=== PATIENT | female | born 1940 | race Caucasian/White ===

== ENCOUNTER → 2016-05-12 | Outpatient (CLI) | payer OTHER ==
[~2016-05-12] MED LIST: ATOR10TA88 PO; LISI-461 PO; OXYC5TAB PO; PRD/1 PO
== END | disposition home or self-care (01) ==
LOC: C.LAB1850 14:08
PROVIDERS: ATTEND Internal Medicine Rheumatology
DX: M35.3 Polymyalgia rheumatica (principal); Z79.52 Long term (current) use of systemic steroids

== ENCOUNTER → 2016-06-04 | Outpatient (CLI) | payer OTHER ==
--- NOTE | 2016-06-04 12:45 | DIAGNOSTIC IMAGING REPORT ---
CHEST 2 VIEWS ROUTINE CLINICAL HISTORY: R53.83 FatigueR COMPARISON STUDY: 01/24/2016 FINDINGS: The cardiac and mediastinal contours are normal. There is no evidence of focal pulmonary consolidation. There is no evidence of failure. No pleural effusions are visualized.[ IMPRESSION: No active disease in the chest. Electronically signed by: Harrison Reis M.D. 06/04/2016 12:44 PM Dictated Date/Time: 06/04/2016 12:44 PM
[2016-06-04 14:39] LABS: BASO % 0.3 %; BASO ABS # 0.03 K/uL (0-0.2); COMPLETE YES; EOS % 2.1 %; IG% 0.3 %; LYMPH % 23.7 %; LYMPH ABS # 2.27 K/uL (1.2-3.4); MEAN CORPUSCULAR HGB CONC 34.5 g/dl (32-36); MEAN PLATELET VOLUME 11.8 fL (7.4-10.4); MONO % 8.6 %; PLATELET COUNT 233 K/uL (130-400); RED BLOOD COUNT 4.22 M/uL (4.2-5.4); WHITE BLOOD COUNT 9.59 K/uL (4.8-10.8)
[2016-06-04 15:02] LABS: ESTIMATED AVERAGE GLUCOSE 123 mg/dl; HA1C FLAG Normal (Normal)
[2016-06-04 16:57] LABS: ALT/SGPT 28 U/L (12-78); AST/SGOT 16 U/L (15-37); BLOOD UREA NITROGEN 31 mg/dl (7-18); BUN/CREATININE RATIO 25.5 (10-20); CALCIUM 9.2 mg/dl (8.5-10.1); CARBON DIOXIDE 27 mmol/L (21-32); CHLORIDE 105 mmol/L (98-107); GLUCOSE 107 mg/dl (70-99); POTASSIUM 4.4 mmol/L (3.5-5.1); SODIUM 139 mmol/L (136-145)
[2016-06-04 17:08] LABS: ALB/GLOB RATIO 1.2 (0.9-2); ALKALINE PHOSPHATASE 67 U/L (45-117); CHOLESTEROL 162 mg/dl (0-200); CHOLESTEROL/HDL RATIO 3.4; HDL CHOLESTEROL 48 mg/dl; LDL CHOLESTEROL CALCULATED 89 mg/dl; TRIGLYCERIDES 123 mg/dl (0-150); VERY LOW DENSITY LIPOPROT CALC 25 mg/dl
[2016-06-04 20:28] LABS: LYME DISEASE AB IGG NEG (NEG); LYME DISEASE AB IGM NEG (NEG)
--- NOTE | 2016-06-09 12:35 | CODING QUERY MEDICAL NECESSITY ---
SUPPORTING DIAGNOSIS NEEDED A supporting diagnosis is required for the test/procedure performed on this patient in order for us to be reimbursed by the patient's insurance. Please provide a supporting diagnosis for the following test/procedure listed below next to the test name along with your signature. *If there is no additional diagnosis for this patient that would support the following test/procedure please document that below next to the test/procedure. Test(s)/Procedure(s) that require a supporting diagnosis: * VITAMIN D-25 HYDROXY DIAGNOSIS: * GLYCATED HEMOGLOBIN DIAGNOSIS: * DOS: 06/04/16 Provider Signature: Date: Thank you Cheryl Shelton Health Information Management Once completed, please kindly fax back to [phone] For questions please call [phone]
== END | disposition home or self-care (01) ==
LOC: C.RADBC 12:12
PROVIDERS: ATTEND Physician Assistant
DX: R53.83 Other fatigue (principal); E55.9 Vitamin D deficiency, unspecified; Z79.52 Long term (current) use of systemic steroids

== ENCOUNTER → 2016-08-13 | Outpatient (CLI) | payer OTHER ==
[~2016-08-13] MED LIST changes: +ATOR10TA82 PO; -ATOR10TA88 PO
== END | disposition home or self-care (01) ==
LOC: C.LAB1850 11:34
PROVIDERS: ATTEND Internal Medicine Rheumatology
DX: M35.3 Polymyalgia rheumatica (principal); Z79.52 Long term (current) use of systemic steroids

== ENCOUNTER → 2016-08-15 | Outpatient (CLI) | payer OTHER ==
--- NOTE | 2016-08-15 15:45 | DIAGNOSTIC IMAGING REPORT ---
KUB CLINICAL HISTORY: Left flank pain. Nephrolithiasis. FINDINGS: 2 AP supine abdominal radiographs are compared to study dated 01/26/2016 and correlated with abdominal CT dated 01/25/2016. There is a nonobstructed abdominal bowel gas pattern noting mild colonic fecal retention. There is no radiographic evidence of nephrolithiasis. Numerous phleboliths are noted in the pelvis. The skeletal structures are osteopenic. Mild lumbosacral spondylosis and scoliosis is observed. IMPRESSION: There is no radiographic evidence of nephrolithiasis. Electronically signed by: Aric Galloway M.D. 08/15/2016 3:43 PM Dictated Date/Time: 08/15/2016 3:41 PM
== END | disposition home or self-care (01) ==
LOC: C.RAD 15:15
PROVIDERS: ATTEND Nurse Practitioner Family
DX: N20.0 Calculus of kidney (principal)

== ENCOUNTER → 2016-09-30 | Outpatient (CLI) | payer OTHER ==
[~2016-09-30] MED LIST changes: -ATOR10TA82 PO; +ATOR10TA88 PO
== END | disposition home or self-care (01) ==
LOC: C.LABPBG 11:46
PROVIDERS: ATTEND Internal Medicine Geriatric Medicine
DX: M35.3 Polymyalgia rheumatica (principal)

== ENCOUNTER → 2016-10-14 | Outpatient (CLI) | payer OTHER ==
[2016-10-14 18:20] LABS: BLOOD UREA NITROGEN 27 mg/dl (7-18)
== END | disposition home or self-care (01) ==
LOC: C.LABPBG 10:56
PROVIDERS: ATTEND Internal Medicine Geriatric Medicine
DX: D49.0 Neoplasm of unspecified behavior of digestive system (principal); I10 Essential (primary) hypertension

== ENCOUNTER → 2016-10-17 | Outpatient (CLI) | payer OTHER ==
[~2016-10-17] MED LIST changes: +GADAVIST IV PRN
--- NOTE | 2016-10-17 10:26 | DIAGNOSTIC IMAGING REPORT ---
MRI ABDOMEN COMBO CLINICAL HISTORY: IPMN - D49.0 PANCREATIC MASS TECHNIQUE: Imaging was performed prior to and following IV contrast injection. COMPARISON STUDY: 12/05/2015 FINDINGS: Imaging was performed in the axial and coronal planes, before and after the administration of 8.5 cc of intravenous Gadavist. There is a 4 cm right lobe hepatic cyst medially beneath the dome of the diaphragm. No splenic masses are visualized. There is a stable subdiaphragmatic cyst abutting the spleen measuring 13 cm. The gallbladder is surgically absent. There is no evidence of abdominal aortic dilatation. T2 bright left renal lesions are felt to represent cysts. There is no evidence of intra or extrahepatic biliary ductal dilatation. The pancreatic duct is irregular. There are several tiny cystic lesions which appear to communicate with the pancreatic duct. The largest is located within the pancreatic head measuring 8 mm. The findings are suggestive of side branch IPMNs. Os contrast images reveal no pathologic enhancement. IMPRESSION: 1. 4 cm right lobe hepatic cyst 2. Stable 13 mm left subdiaphragmatic cyst abutting the spleen 3. Stable left renal cysts 4. Somewhat beaded pancreatic duct. Several tiny cystic lesions which communicate with the main pancreatic duct are visualized. The largest is located within the pancreatic head measuring 8 mm. 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 10/17/2016 10:25 AM Dictated Date/Time: 10/17/2016 10:15 AM
== END | disposition home or self-care (01) ==
LOC: C.MRIBC 09:07
PROVIDERS: ATTEND Internal Medicine Geriatric Medicine
DX: D49.0 Neoplasm of unspecified behavior of digestive system (principal); K76.89 Other specified diseases of liver; K66.8 Other specified disorders of peritoneum; N28.1 Cyst of kidney, acquired

== ENCOUNTER → 2016-12-16 | Outpatient (CLI) | payer OTHER ==
[~2016-12-16] MED LIST changes: -GADAVIST IV PRN
[2016-12-16 17:32] LABS: BASO % 0.2 %; BASO ABS # 0.02 K/uL (0-0.2); COMPLETE YES; EOS % 0.2 %; IG% 0.5 %; LYMPH % 12.8 %; MEAN CELL VOLUME 92.2 fL (80-100); MEAN CORPUSCULAR HEMOGLOBIN 30.7 pg (25-34); MEAN CORPUSCULAR HGB CONC 33.3 g/dl (32-36); MONO % 5.8 %; NEUT % 80.5 %; PLATELET COUNT 285 K/uL (130-400); RED BLOOD COUNT 4.23 M/uL (4.2-5.4); WHITE BLOOD COUNT 10.17 K/uL (4.8-10.8)
[2016-12-16 17:42] LABS: ALT/SGPT 26 U/L (12-78); AST/SGOT 13 U/L (15-37); BLOOD UREA NITROGEN 25 mg/dl (7-18); BUN/CREATININE RATIO 20.6 (10-20); CALCIUM 9.2 mg/dl (8.5-10.1); CARBON DIOXIDE 26 mmol/L (21-32); CHLORIDE 102 mmol/L (98-107); GLUCOSE 133 mg/dl (70-99); POTASSIUM 4.1 mmol/L (3.5-5.1); SODIUM 135 mmol/L (136-145)
[2016-12-16 17:53] LABS: ALB/GLOB RATIO 0.9 (0.9-2); ALKALINE PHOSPHATASE 66 U/L (45-117); THYROID STIMULATING HORMONE 0.946 uIu/ml (0.300-4.500)
== END | disposition home or self-care (01) ==
LOC: C.LABPBG 13:41
PROVIDERS: ATTEND Internal Medicine Geriatric Medicine
DX: M35.3 Polymyalgia rheumatica (principal); R53.83 Other fatigue; R10.9 Unspecified abdominal pain; D49.0 Neoplasm of unspecified behavior of digestive system; I12.9 Hypertensive chronic kidney disease with stage 1 through stage 4 chronic kidney disease, or unspecified chronic kidney disease; E55.9 Vitamin D deficiency, unspecified; N18.9 Chronic kidney disease, unspecified

== ENCOUNTER → 2017-02-19 | Outpatient (CLI) | payer OTHER ==
[~2017-02-19] MED LIST changes: +ATOR10TA82 PO; -ATOR10TA88 PO
== END | disposition home or self-care (01) ==
LOC: C.LABPBG 11:06
PROVIDERS: ATTEND Internal Medicine Geriatric Medicine
DX: T14.8XXA Other injury of unspecified body region, initial encounter (principal); W57.XXXA Bitten or stung by nonvenomous insect and other nonvenomous arthropods, initial encounter

== ENCOUNTER → 2017-03-25 | Outpatient (CLI) | payer OTHER ==
--- NOTE | 2017-03-25 15:09 | MAMMOGRAPHY REPORT ---
BILATERAL DIGITAL SCREENING MAMMOGRAM TOMOSYNTHESIS WITH CAD: 03/25/2017 CLINICAL HISTORY: Routine screening. Patient has no complaints. TECHNIQUE: Breast tomosynthesis in addition to standard 2D mammography was performed. Current study was also evaluated with a Computer Aided Detection (CAD) system. COMPARISON: Comparison is made to exams dated: 01/30/2016 mammogram, 01/23/2015 mammogram, 4 mammogram, 01/19/2013 mammogram, 01/14/2012 mammogram, and 01/13/2011 mammogram - [facility]. BREAST COMPOSITION: There are scattered areas of fibroglandular density in both breasts. FINDINGS: There are stable focal asymmetries in each upper outer breast. Mild vascular calcification . No ne wsuspicious mass, architectural distortion or cluster of microcalcifications is seen. IMPRESSION: ACR BI-RADS CATEGORY 1: NEGATIVE There is no mammographic evidence of malignancy. A 1 year screening mammogram is recommended. The pa tient will receive written notification of the results. Approximately 10% of breast cancers are not detected with mammography. A negative mammographic report should not delay biopsy if a clinically suggestive mass is present. Mirta Castellanos M.D. ay/:03/25/2017 13:32:54 [employer] Cast Patternmaker: Marylou DIAZ(R)(M), [facility] letter sent: Normal 1/2 BI-RADS Code: ACR BI-RADS Category 1: Negative
== END | disposition home or self-care (01) ==
LOC: C.MAMM 13:13
PROVIDERS: ATTEND Internal Medicine Geriatric Medicine
DX: Z12.31 Encounter for screening mammogram for malignant neoplasm of breast (principal)

== ENCOUNTER → 2017-06-27 | Outpatient (CLI) | payer OTHER | LOC: C.LABSPEC 09:38 | PROVIDERS: ATTEND Internal Medicine | DX: R39.9 Unspecified symptoms and signs involving the genitourinary system (principal) ==

== ENCOUNTER → 2017-07-06 | Outpatient (CLI) | payer OTHER ==
--- NOTE | 2017-07-06 11:27 | DIAGNOSTIC IMAGING REPORT ---
KUB CLINICAL HISTORY: Nephrolithiasis. Left-sided abdominal pain. COMPARISON STUDY: CT of the abdomen and pelvis January 25, 2016 and KUB August 15, 2016. FINDINGS: Pelvic calcifications likely reflect phleboliths. No urinary calculi are identified. There is no evidence for a bowel obstruction. IMPRESSION: No urinary calculi identified. Electronically signed by: Primitivo Eubanks M.D. 07/06/2017 11:26 AM Dictated Date/Time: 07/06/2017 11:23 AM
[2017-07-06 13:03] LABS: BASO % 0.3 %; BASO ABS # 0.03 K/uL (0-0.2); EOS % 1.5 %; EOS ABS # 0.14 K/uL (0-0.5); HEMATOCRIT 37.5 % (37-47); HEMOGLOBIN 13.1 g/dL (12.0-16.0); IG# 0.02 K/uL (0.00-0.02); LYMPH % 23.3 %; LYMPH ABS # 2.25 K/uL (1.2-3.4); MEAN CELL VOLUME 90.6 fL (80-100); MEAN CORPUSCULAR HEMOGLOBIN 31.6 pg (25-34); MEAN CORPUSCULAR HGB CONC 34.9 g/dl (32-36); MEAN PLATELET VOLUME 11.1 fL (7.4-10.4); MONO % 8.2 %; MONO ABS # 0.79 K/uL (0.11-0.59); NEUT % 66.5 %; NEUT ABS # 6.42 K/uL (1.4-6.5); PLATELET COUNT 201 K/uL (130-400); RED CELL DISTRIBUTION WIDTH SD 42.9 fL (36.4-46.3); WHITE BLOOD COUNT 9.65 K/uL (4.8-10.8)
[2017-07-06 14:11] LABS: ALBUMIN 3.8 gm/dl (3.4-5.0); ALT/SGPT 29 U/L (12-78); AST/SGOT 20 U/L (15-37); BLOOD UREA NITROGEN 24 mg/dl (7-18); CALCIUM 9.4 mg/dl (8.5-10.1); CARBON DIOXIDE 26 mmol/L (21-32); CREATININE 1.22 mg/dl (0.60-1.20); GLUCOSE 96 mg/dl (70-99); POTASSIUM 4.6 mmol/L (3.5-5.1); SODIUM 135 mmol/L (136-145)
[2017-07-06 14:13] LABS: ALKALINE PHOSPHATASE 59 U/L (45-117); CHOLESTEROL 137 mg/dl (0-200); LDL CHOLESTEROL CALCULATED 56 mg/dl; TOTAL PROTEIN 7.4 gm/dl (6.4-8.2)
== END | disposition home or self-care (01) ==
LOC: C.RADBC 11:03
PROVIDERS: ATTEND Urology
DX: N20.0 Calculus of kidney (principal); M35.3 Polymyalgia rheumatica; I10 Essential (primary) hypertension; D49.0 Neoplasm of unspecified behavior of digestive system; E78.5 Hyperlipidemia, unspecified; Z79.52 Long term (current) use of systemic steroids; N18.9 Chronic kidney disease, unspecified

== ENCOUNTER → 2017-07-13 | Outpatient (CLI) | payer OTHER ==
--- NOTE | 2017-07-13 16:02 | DIAGNOSTIC IMAGING REPORT ---
L KNEE 1 OR 2 VIEWS ROUTINE, R KNEE 1 OR 2 VIEWS ROUTINE HISTORY: 77 years-old Female M25.569 acute bilateral knee pain COMPARISON: None available TECHNIQUE: 2 views of the bilateral knees FINDINGS: RIGHT: Chondrocalcinosis with moderate medial and mild lateral and patellofemoral compartment osteoarthritis. There is no acute fracture or dislocation. Small joint effusion. Indeterminate linear ossifications posterior to the femoral condyle measure up to 4.0 cm in length, likely within the proximal myotendinous fibers of the gastrocnemius. Peripheral arterial calcifications noted. LEFT: Dystrophic calcifications at the origin of the gastrocnemius also noted on the left. Chondrocalcinosis with moderate medial compartment, mild to moderate patellofemoral and mild bilateral compartment osteoarthritis. There is no acute fracture or dislocation. Small joint effusion with peripheral arterial disease. IMPRESSION: 1. Small bilateral joint effusions without acute fracture or dislocation. 2. 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 3. Peripheral arterial disease. The above report was generated using voice recognition software. It may contain grammatical, syntax or spelling errors. Electronically signed by: Aditya Gilman M.D. 07/13/2017 4:01 PM Dictated Date/Time: 07/13/2017 3:58 PM
== END | disposition home or self-care (01) ==
LOC: C.RADBC 15:38
PROVIDERS: ATTEND Physician Assistant Medical
DX: M25.569 Pain in unspecified knee (principal); M25.461 Effusion, right knee; M25.462 Effusion, left knee; M11.161 Familial chondrocalcinosis, right knee; M11.162 Familial chondrocalcinosis, left knee; M17.0 Bilateral primary osteoarthritis of knee; I73.9 Peripheral vascular disease, unspecified

== ENCOUNTER 2017-07-20 01:52 | Emergency (ER) | payer OTHER ==
[~2017-07-20] VITALS: Ht 160 cm; Wt 88.4 kg
[2017-07-20 01:56] VITALS: TEMP 36.4; Ht 160 cm; Wt 88.4 kg
[2017-07-20 02:57] LABS: BASO % 0.4 %; BASO ABS # 0.03 K/uL (0-0.2); EOS % 3.6 %; EOS ABS # 0.26 K/uL (0-0.5); HEMATOCRIT 36.6 % (37-47); HEMOGLOBIN 12.6 g/dL (12.0-16.0); IG# 0.01 K/uL (0.00-0.02); LYMPH % 35.1 %; LYMPH ABS # 2.51 K/uL (1.2-3.4); MEAN CELL VOLUME 90.6 fL (80-100); MEAN CORPUSCULAR HEMOGLOBIN 31.2 pg (25-34); MEAN CORPUSCULAR HGB CONC 34.4 g/dl (32-36); MEAN PLATELET VOLUME 10.7 fL (7.4-10.4); MONO % 8.5 %; MONO ABS # 0.61 K/uL (0.11-0.59); NEUT % 52.3 %; NEUT ABS # 3.74 K/uL (1.4-6.5); PLATELET COUNT 205 K/uL (130-400); RED CELL DISTRIBUTION WIDTH CV 13.1 % (11.5-14.5); RED CELL DISTRIBUTION WIDTH SD 43.2 fL (36.4-46.3); WHITE BLOOD COUNT 7.16 K/uL (4.8-10.8)
[2017-07-20] MEDS ORDERED: ERGO1TAB12 PO (03:13)
[2017-07-20] MEDS ORDERED: HYDR-5688 PO (03:14)
[2017-07-20] MEDS ORDERED: HYDR200T5 PO (03:15)
[2017-07-20] MEDS ORDERED: PANT40TA PO (03:15)
[2017-07-20 03:25] LABS: ALBUMIN 3.6 gm/dl (3.4-5.0); ALT/SGPT 29 U/L (12-78); BLOOD UREA NITROGEN 15 mg/dl (7-18); CALCIUM 8.7 mg/dl (8.5-10.1); CARBON DIOXIDE 26 mmol/L (21-32); CREATININE 1.27 mg/dl (0.60-1.20); GLUCOSE 111 mg/dl (70-99); SODIUM 136 mmol/L (136-145)
[2017-07-20 03:33] LABS: ALKALINE PHOSPHATASE 57 U/L (45-117)
--- NOTE | 2017-07-20 03:49 | EMERGENCY ROOM VISIT NOTE ---
ED Visit Note First contact with patient: 02:00 I saw this patient in conjunction with Crystal Quijano PA-C. I agree with her decision making and treatment plan.
--- NOTE | 2017-07-20 04:06 | EMERGENCY ROOM VISIT NOTE ---
History First contact with patient: 02:00 Chief Complaint: DIZZY Stated Complaint: DIZZY, UPSET STOMACH Nursing Triage Summary: see triage note History of Present Illness The patient is a 77 year old female who presents to the Emergency Room with complaints of dizziness. The patient reports that her symptoms started yesterday morning, approximately 24 hours ago. She states that she woke up from sleep and got up to go to the bathroom when she felt very dizzy. She laid down and her symptoms improved. Throughout the day, she had intermittent dizziness but nothing significant. She states that she again woke up to go to the bathroom tonight and felt very dizzy. She describes this as a feeling like the room was spinning. She felt like her heart was fluttering when she lies down. She feels slightly shaky at this time but states that the dizziness has resolved. She has been slightly nauseous with the dizziness but has not vomited. She denies any history of similar symptoms. She was recently treated for UTI, but had repeat urinalysis afterward which was clear. She has a history of arthritis and polymyalgia rheumatica but is otherwise healthy. She denies any headache, neck pain, chest pain, shortness of breath, fevers or recent illness. She denies numbness, weakness, blurred vision, slurred speech or confusion. She does note that her lisinopril dosage was recently increased. Review of Systems A complete 10 point review of systems was reviewed with the patient with pertinent positives and negatives as per history of present illness. All else were negative. Past Medical/Surgical History Medical Problems: (1) Abdominal abscess (2) Anxiety (3) Colonic diverticular abscess (4) Colonic polyp (5) Elevated troponin (6) Hyperlipemia (7) Kidney stone (8) PMR (polymyalgia rheumatica) Surgical Problems: (1) History of appendectomy (2) History of cholecystectomy Family History Diabetes mellitus FHx: gallbladder disease Hypertension Kidney stones Social History Smoking Status: Never Smoker Alcohol Use: occasionally Marital Status: Housing Status: lives with significant other Occupation Status: retired Current/Historical Medications Scheduled Atorvastatin (Lipitor), 10 MG PO DAILY Ergocalciferol (Vitamin D2), 2,000 PO DAILY Hydroxychloroquine Sulfate (Plaquenil), 400 MG PO DAILY Lisinopril (Lisinopril), 20 MG PO DAILY Pantoprazole (Protonix), 40 MG PO DAILY Prednisone (Prednisone), 1 MG PO DAILY Scheduled PRN Hydrocodone/Acetaminophen 5MG/325MG (Furman 5MG/325MG), 1 TABLET PO Q6 PRN for Pain Physical Exam Vital Signs Date Time Temp Pulse Resp B/P (MAP) Pulse Ox O2 Delivery O2 Flow Rate FiO2 07/20/17 04:22 64 18 150/88 98 07/20/17 02:46 76 18 150/64 98 82 155/103 80 160/88 07/20/17 02:30 73 07/20/17 01:56 36.4 93 20 142/87 94 Room Air Physical Exam VITALS: Vitals are noted on the nurse's note and reviewed by myself. Vital signs stable. GENERAL: This is a 77-year-old female, in no acute distress, nondiaphoretic, well-developed well-nourished. SKIN: The skin was without rashes. HEAD: Normocephalic atraumatic. EARS: External auditory canals clear, tympanic membranes pearly hills without erythema or effusion bilaterally. EYES: Pupils equal round and reactive to light and accommodation. Extraocular movements intact. No nystagmus. MOUTH: Mucous membranes moist. Tonsils are not enlarged. Pharynx without erythema or exudate. NECK: Supple without nuchal rigidity. No lymphadenopathy. HEART: Regular rate and rhythm without murmurs gallops or rubs. LUNGS: Clear to auscultation bilaterally without wheezes, rales or rhonchi. MUSCULOSKELETAL: Strength 5/5 throughout. NEURO: Patient was alert and oriented to person place and time. Normal finger to nose testing. Normal rapid alternating movements. No focal neurological deficits. Medical Decision & Procedures ER Provider Diagnostic Interpretation: CT HEAD: Trace fluid in the right sphenoid sinus No acute hemorrhage or infarction Radiologist: Nj Coates MD Laboratory Results 07/20/17 02:36 Red Blood Count 4.04, Mean Corpuscular Volume 90.6, Mean Corpuscular Hemoglobin 31.2, Mean Corpuscular Hemoglobin Concent 34.4, Mean Platelet Volume 10.7, Neutrophils (%) (Auto) 52.3, Lymphocytes (%) (Auto) 35.1, Monocytes (%) (Auto) 8.5, Eosinophils (%) (Auto) 3.6, Basophils (%) (Auto) 0.4, Neutrophils # (Auto) 3.74, Lymphocytes # (Auto) 2.51, Monocytes # (Auto) 0.61, Eosinophils # (Auto) 0.26, Basophils # (Auto) 0.03 07/20/17 02:36 Test 07/20/17 02:36 White Blood Count 7.16 K/uL (4.8-10.8) Red Blood Count 4.04 M/uL (4.2-5.4) Hemoglobin 12.6 g/dL (12.0-16.0) Hematocrit 36.6 % (37-47) Mean Corpuscular Volume 90.6 fL (80-100) Mean Corpuscular Hemoglobin 31.2 pg (25-34) Mean Corpuscular Hemoglobin Concent 34.4 g/dl (32-36) Platelet Count 205 K/uL (130-400) Mean Platelet Volume 10.7 fL (7.4-10.4) Neutrophils (%) (Auto) 52.3 % Lymphocytes (%) (Auto) 35.1 % Monocytes (%) (Auto) 8.5 % Eosinophils (%) (Auto) 3.6 % Basophils (%) (Auto) 0.4 % Neutrophils # (Auto) 3.74 K/uL (1.4-6.5) Lymphocytes # (Auto) 2.51 K/uL (1.2-3.4) Monocytes # (Auto) 0.61 K/uL (0.11-0.59) Eosinophils # (Auto) 0.26 K/uL (0-0.5) Basophils # (Auto) 0.03 K/uL (0-0.2) RDW Standard Deviation 43.2 fL (36.4-46.3) RDW Coefficient of Variation 13.1 % (11.5-14.5) Immature Granulocyte % (Auto) 0.1 % Immature Granulocyte # (Auto) 0.01 K/uL (0.00-0.02) Anion Gap 8.0 mmol/L (3-11) Est Creatinine Clear Calc Drug Dose 39.7 ml/min Estimated GFR () 47.5 Estimated GFR (Non- 41.0 BUN/Creatinine Ratio 12.0 (10-20) Calcium Level 8.7 mg/dl (8.5-10.1) Total Bilirubin 0.4 mg/dl (0.2-1) Aspartate Amino Transf (AST/SGOT) U/L (15-37) Alanine Aminotransferase (ALT/SGPT) 29 U/L (12-78) Alkaline Phosphatase 57 U/L (45-117) Troponin I < 0.015 ng/ml (0-0.045) Total Protein 7.0 gm/dl (6.4-8.2) Albumin 3.6 gm/dl (3.4-5.0) Globulin 3.4 gm/dl (2.5-4.0) Albumin/Globulin Ratio 1.1 (0.9-2) Thyroid Stimulating Hormone (TSH) 2.650 uIu/ml (0.300-4.500) ED Course The patient was evaluated as above. Labs were drawn and IV access was obtained. CT of the head was performed and read by radiology as above. Patient was reevaluated and reports she is still feeling well and has no dizziness. Discharge instructions were reviewed with the patient. The patient verbalized understanding of my assessment and treatment plan and was discharged home in good condition. Medical Decision Differential diagnosis includes BPPV, Mnire's disease, labyrinthitis, cerebellar infarct, malignancy/mass, meningitis, encephalitis, among others. The patient is a 77-year-old female who presents today complaining of dizziness. Labs revealed no leukocytosis, anemia or concerning electrolyte abnormalities. Troponin was not elevated. EKG was performed and appears similar to previous. Patient has an old lateral infarct but no acute findings. She remained in a normal sinus rhythm on the monitor throughout her stay. CT of the head was performed and showed no acute intracranial findings. Fortunately, the patient's dizziness had resolved when she presented here. I did observe the patient walking around the room and she was able to do this with no difficulties. She has no neurological findings on exam. Her has a history of vertigo and does have meclizine at home and the patient was advised that she can try this medication if her symptoms return. If she has persistent dizziness or any other concerning symptoms, she was advised to return here immediately, otherwise she will follow-up with her PCP within 2 days. The patient was independently evaluated by Dr. Huitron, ED attending physician, who agreed with my assessment and treatment plan. Based on the patient's presentation and work up, I feel the patient is stable for outpatient treatment. The patient was educated to return to the emergency department for any worsening of their current condition or new/concerning symptoms. She will follow up with her PCP. Medication Reconcilliation Current Medication List: was personally reviewed by me Blood Pressure Screening Patient's blood pressure: Elevated blood pressure Blood pressure disposition: Referred to PCP Impression Primary Impression: Dizziness Departure Information Dispostion Home / Self-Care Condition GOOD Referrals Marco A Bursn M.D. (PCP) Patient Instructions My [facility] Additional Instructions Contact your primary care provider in the morning to schedule follow-up within 1 -2 days. As discussed, you may try the meclizine to see if this helps with her symptoms. Make sure to stay well-hydrated. Return to the emergency department if he developed persistent dizziness, vomiting, severe headache or any other new/concerning symptoms.
[2017-07-20 04:22] VITALS: BP 150/88; PULSE 64; O2SAT 98
--- NOTE | 2017-07-20 06:32 | DIAGNOSTIC IMAGING REPORT ---
CT HEAD WITHOUT CONTRAST (CT) CLINICAL HISTORY: dizziness COMPARISON STUDY: No previous studies for comparison. TECHNIQUE: Axial CT of the brain is performed from the vertex to the skull base. IV contrast was not administered for this examination. A dose lowering technique was utilized adhering to the principles of ALARA. CT DOSE: 537.48 mGy.cm FINDINGS: No intra or extra-axial mass lesions are visualized. There is no CT evidence of acute cortical infarction. There is no evidence of midline shift. There is no acute hemorrhage. No calvarial fractures are visualized. There are minor patchy white matter hypodensities likely on a small vessel basis. There is no evidence of pathologic ventricular dilatation. There is trace fluid in the sphenoid sinus. IMPRESSION: Trace fluid within the sphenoid sinus. Otherwise no acute intracranial findings. Electronically signed by: Harrison Reis M.D. 07/20/2017 6:31 AM Dictated Date/Time: 07/20/2017 6:30 AM
[2017-07-21] MEDS ORDERED: AMOX875T PO (14:44)
[2017-07-21] MEDS ORDERED: ONDA4TAB10 SL (14:45)
[2017-07-21] MEDS ORDERED: ANT25 PO (14:47)
== END 2017-07-20 04:23 | disposition home or self-care (01) ==
LOC: C.EDB 01:53
DX: R42 Dizziness and giddiness (principal); F41.9 Anxiety disorder, unspecified; E78.5 Hyperlipidemia, unspecified; Z79.52 Long term (current) use of systemic steroids; Z79.899 Other long term (current) drug therapy

== ENCOUNTER 2017-07-21 10:07 | Emergency (ER) | payer OTHER ==
[~2017-07-21] VITALS: Ht 160 cm; Wt 87.2 kg
[~2017-07-21 10:07] MED LIST changes: +ERGO1TAB12 PO; +HYDR-5688 PO; +HYDR200T5 PO; -OXYC5TAB PO; +PANT40TA PO
[2017-07-21 10:19] VITALS: TEMP 36.6; Ht 160 cm; Wt 87.2 kg
[2017-07-21] MEDS ORDERED: DiphenhydrAMINE HCL 50 MG/ML VIAL IV STA (11:02)
[2017-07-21] MEDS ORDERED: PROMETHAZINE HCL INJ 12.5 MG in SODIUM CHLORIDE 0.9% 50ML 50 ML IV STA (11:02)
[2017-07-21] MEDS ORDERED: SODIUM CHLORIDE 0.9% 500ML 500 ML IV STA (11:02)
[2017-07-21] MEDS ORDERED: SODIUM CHLORIDE 0.9% 1000ML 1,000 ML IV STA (11:02)
[2017-07-21] MEDS ORDERED: HYDROmorphone INJ 0.5 MG/0.5 ML SYR IV STA (11:02)
[2017-07-21] MEDS ORDERED: GADAVIST IV PRN (12:30)
[2017-07-21 12:40] LABS: BASO % 0.2 %; BASO ABS # 0.02 K/uL (0-0.2); EOS % 0.7 %; EOS ABS # 0.06 K/uL (0-0.5); HEMOGLOBIN 12.8 g/dL (12.0-16.0); IG# 0.02 K/uL (0.00-0.02); LYMPH % 14.4 %; LYMPH ABS # 1.16 K/uL (1.2-3.4); MEAN CELL VOLUME 88.5 fL (80-100); MEAN CORPUSCULAR HEMOGLOBIN 31.4 pg (25-34); MEAN CORPUSCULAR HGB CONC 35.6 g/dl (32-36); MEAN PLATELET VOLUME 11.1 fL (7.4-10.4); MONO % 8.6 %; MONO ABS # 0.69 K/uL (0.11-0.59); NEUT % 75.9 %; NEUT ABS # 6.09 K/uL (1.4-6.5); PLATELET COUNT 197 K/uL (130-400); RED CELL DISTRIBUTION WIDTH CV 12.6 % (11.5-14.5); RED CELL DISTRIBUTION WIDTH SD 40.6 fL (36.4-46.3); WHITE BLOOD COUNT 8.04 K/uL (4.8-10.8)
--- NOTE | 2017-07-21 12:45 | DIAGNOSTIC IMAGING REPORT ---
MRI OF THE BRAIN WITHOUT AND WITH IV CONTRAST CLINICAL HISTORY: Headache, vomiting, negative head CT. COMPARISON STUDY: Noncontrast head CT dated 07/20/2017 TECHNIQUE: MRI of the brain was performed from the vertex to the skull base utilizing various T1 and T2 weighted sequences. Following the IV administration of 8.5 mL of Gadavist contrast, additional enhanced images were obtained. FINDINGS: Sagittal T1, axial diffusion, proton density and T2 weighted axial, coronal FLAIR, and pre and post axial T1-weighted images were acquired. These were supplemented with post gadolinium coronal T1 weighted images. No intra or extra-axial mass lesions are visualized. Axial diffusion-weighted images reveal no evidence of acute or subacute infarction. There is no evidence of ventricular dilatation. Proton density T2-weighted and FLAIR images reveal a few scattered foci of increased T2 signal within the white matter, likely on a small vessel basis, and not unexpected for age. There are no abnormal flow voids. There is no evidence of pathologic enhancement. There are foci of increased T2 signal within the left mastoid, likely inflammatory. IMPRESSION: 1. No acute intracranial findings 2. Suspected mild inflammatory changes within the left mastoid 3. No evidence of acute or subacute infarction 4. No evidence of intracranial mass Electronically signed by: Harrison Reis M.D. 07/21/2017 12:43 PM Dictated Date/Time: 07/21/2017 12:41 PM
[2017-07-21 13:03] LABS: ALBUMIN 3.7 gm/dl (3.4-5.0); ALT/SGPT 32 U/L (12-78); AST/SGOT 25 U/L (15-37); BLOOD UREA NITROGEN 14 mg/dl (7-18); CARBON DIOXIDE 26 mmol/L (21-32); GLUCOSE 100 mg/dl (70-99); POTASSIUM 3.9 mmol/L (3.5-5.1); SODIUM 134 mmol/L (136-145)
[2017-07-21 13:14] LABS: ALKALINE PHOSPHATASE 62 U/L (45-117); TOTAL PROTEIN 7.1 gm/dl (6.4-8.2)
[2017-07-21] MEDS ORDERED: AMOX875T PO (14:44)
[2017-07-21] MEDS ORDERED: ONDA4TAB10 SL (14:45)
[2017-07-21] MEDS ORDERED: ANT25 PO (14:47)
--- NOTE | 2017-07-21 14:54 | EMERGENCY ROOM VISIT NOTE ---
History Report prepared by Charu: Richard Pelaez Under the Supervision of: Dr. Ashley Box M.D. First contact with patient: 10:55 Chief Complaint: DIZZY Stated Complaint: DIZZINESS,VOMITING,HEADACHE History of Present Illness The patient is a 77 year old female who presents to the Emergency Room with complaints of constant generalized headache beginning last night. She states the worst of her pain is located in her forehead, and base of the back of her head. She rates her pain as a 5/10 in severity. The patient was seen in the ED yesterday for dizziness. She had a negative work-up (including head CT). She was discharged home without any prescriptions. The patient states that she developed her headache following this. She vomited last night as well. She states that her dizziness has persisted, but is improved. The patient denies urinary symptoms, diarrhea, cough, or fevers. She notes that she was diagnosed with a UTI about two weeks ago. She was started on Macrobid, but was later switched to Ceftin. Per , the patient has not been confused, or disoriented at all recently. The patient states that she noticed her dizziness with turning over in bed. Source of History: patient, spouse/significant other () Onset: Last night Position: head (generalized) Symptom Intensity: 5/10 Timing: constant Associated Symptoms: + vomiting, No fevers, No cough, No diarrhea, No urinary symptoms Note: Positive: dizziness. Negative: confusion. Review of Systems See HPI for pertinent positives & negatives. A total of 10 systems reviewed and were otherwise negative. Past Medical & Surgical Medical Problems: (1) Abdominal abscess (2) Anxiety (3) Colonic diverticular abscess (4) Colonic polyp (5) Elevated troponin (6) Hyperlipemia (7) Kidney stone (8) PMR (polymyalgia rheumatica) Surgical Problems: (1) History of appendectomy (2) History of cholecystectomy Family History Diabetes mellitus FHx: gallbladder disease Hypertension Kidney stones Social History Smoking Status: Never Smoker Alcohol Use: occasionally Marital Status: Housing Status: lives with significant other Occupation Status: retired Current/Historical Medications Scheduled Amoxicillin & Pot Clavulanate (Augmentin 875-125 mg), 875 MG PO BID Atorvastatin (Lipitor), 10 MG PO DAILY Ergocalciferol (Vitamin D2), 2,000 PO DAILY Hydroxychloroquine Sulfate (Plaquenil), 400 MG PO DAILY Lisinopril (Lisinopril), 20 MG PO DAILY Ondasetron Odt (Zofran Odt), 4 MG SL Q6H Pantoprazole (Protonix), 40 MG PO DAILY Prednisone (Prednisone), 1 MG PO DAILY Scheduled PRN Hydrocodone/Acetaminophen 5MG/325MG ([place] 5MG/325MG), 1 TABLET PO Q6 PRN for Pain Meclizine HCl (Meclizine HCl), 1 TAB PO Q8 PRN for vertigo Allergies Coded Allergies: Metronidazole (Verified Allergy, Intermediate, rash, 07/21/17) Ciprofloxacin (Verified Allergy, Unknown, rash, 07/21/17) Metoclopramide (Verified Allergy, Unknown, seizure-like activity, 07/21/17) Prochlorperazine (Verified Allergy, Unknown, ., 07/21/17) Indomethacin (Unverified Adverse Reaction, Intermediate, nausea, 07/21/17) Physical Exam Vital Signs Date Time Temp Pulse Resp B/P (MAP) Pulse Ox O2 Delivery O2 Flow Rate FiO2 07/21/17 15:13 67 16 136/67 95 07/21/17 13:53 76 07/21/17 13:01 74 12 143/82 95 Room Air 07/21/17 11:50 78 14 164/90 98 Room Air 79 170/104 86 163/88 07/21/17 11:03 77 07/21/17 10:51 74 16 147/87 96 Room Air 07/21/17 10:19 36.6 86 20 142/84 97 Room Air Physical Exam Vital signs reviewed. General: Elderly, well-appearing female, in no significant distress. HEENT: No scleral icterus, PERRLA, neck supple. Atraumatic. No nystagmus. Cardiovascular: Regular rate and rhythm, no extra sounds. Pulmonary: Clear to auscultation bilaterally, normal work of breathing. Abdomen: Soft, nontender, nondistended, positive bowel sounds. Musculoskeletal: Atraumatic, no peripheral edema. Neurologic: Patient awake alert and oriented x 3, full strength in all 4 extremities. Cranial nerves 2 through 12 grossly intact. No horizontal nystagmus appreciated. Skin: Warm, dry, no rash f Medical Decision & Procedures ER Provider Diagnostic Interpretation: Radiology results as stated below per my review and radiologist interpretation: MRI OF THE BRAIN WITHOUT AND WITH IV CONTRAST FINDINGS: Sagittal T1, axial diffusion, proton density and T2 weighted axial, coronal FLAIR, and pre and post axial T1-weighted images were acquired. These were supplemented with post gadolinium coronal T1 weighted images. No intra or extra-axial mass lesions are visualized. Axial diffusion-weighted images reveal no evidence of acute or subacute infarction. There is no evidence of ventricular dilatation. Proton density T2-weighted and FLAIR images reveal a few scattered foci of increased T2 signal within the white matter, likely on a small vessel basis, and not unexpected for age. There are no abnormal flow voids. There is no evidence of pathologic enhancement. There are foci of increased T2 signal within the left mastoid, likely inflammatory. IMPRESSION: 1. No acute intracranial findings 2. Suspected mild inflammatory changes within the left mastoid 3. No evidence of acute or subacute infarction 4. No evidence of intracranial mass Electronically signed by: Harrison Reis M.D. 07/21/2017 12:43 PM Laboratory Results 07/21/17 11:40 Red Blood Count 4.07, Mean Corpuscular Volume 88.5, Mean Corpuscular Hemoglobin 31.4, Mean Corpuscular Hemoglobin Concent 35.6, Mean Platelet Volume 11.1, Neutrophils (%) (Auto) 75.9, Lymphocytes (%) (Auto) 14.4, Monocytes (%) (Auto) 8.6, Eosinophils (%) (Auto) 0.7, Basophils (%) (Auto) 0.2, Neutrophils # (Auto) 6.09, Lymphocytes # (Auto) 1.16, Monocytes # (Auto) 0.69, Eosinophils # (Auto) 0.06, Basophils # (Auto) 0.02 07/21/17 11:40 Test 07/21/17 00:00 07/21/17 11:40 Urine Color YELLOW Urine Appearance CLEAR (CLEAR) Urine pH 7.0 (4.5-7.5) Urine Specific [place] 1.013 (1.000-1.030) Urine Protein NEG (NEG) Urine Glucose (UA) NEG (NEG) Urine Ketones NEG (NEG) Urine Occult Blood NEG (NEG) Urine Nitrite NEG (NEG) Urine Bilirubin NEG (NEG) Urine Urobilinogen NEG (NEG) Urine Leukocyte Esterase NEG (NEG) White Blood Count 8.04 K/uL (4.8-10.8) Red Blood Count 4.07 M/uL (4.2-5.4) Hemoglobin 12.8 g/dL (12.0-16.0) Hematocrit 36.0 % (37-47) Mean Corpuscular Volume 88.5 fL (80-100) Mean Corpuscular Hemoglobin 31.4 pg (25-34) Mean Corpuscular Hemoglobin Concent 35.6 g/dl (32-36) Platelet Count 197 K/uL (130-400) Mean Platelet Volume 11.1 fL (7.4-10.4) Neutrophils (%) (Auto) 75.9 % Lymphocytes (%) (Auto) 14.4 % Monocytes (%) (Auto) 8.6 % Eosinophils (%) (Auto) 0.7 % Basophils (%) (Auto) 0.2 % Neutrophils # (Auto) 6.09 K/uL (1.4-6.5) Lymphocytes # (Auto) 1.16 K/uL (1.2-3.4) Monocytes # (Auto) 0.69 K/uL (0.11-0.59) Eosinophils # (Auto) 0.06 K/uL (0-0.5) Basophils # (Auto) 0.02 K/uL (0-0.2) RDW Standard Deviation 40.6 fL (36.4-46.3) RDW Coefficient of Variation 12.6 % (11.5-14.5) Immature Granulocyte % (Auto) 0.2 % Immature Granulocyte # (Auto) 0.02 K/uL (0.00-0.02) Anion Gap 9.0 mmol/L (3-11) Est Creatinine Clear Calc Drug Dose 45.5 ml/min Estimated GFR () 56.5 Estimated GFR (Non- 48.7 BUN/Creatinine Ratio 12.9 (10-20) Calcium Level 9.0 mg/dl (8.5-10.1) Magnesium Level 2.0 mg/dl (1.8-2.4) Total Bilirubin 0.8 mg/dl (0.2-1) Direct Bilirubin 0.2 mg/dl (0-0.2) Aspartate Amino Transf (AST/SGOT) 25 U/L (15-37) Alanine Aminotransferase (ALT/SGPT) 32 U/L (12-78) Alkaline Phosphatase 62 U/L (45-117) Troponin I < 0.015 ng/ml (0-0.045) Total Protein 7.1 gm/dl (6.4-8.2) Albumin 3.7 gm/dl (3.4-5.0) Thyroid Stimulating Hormone (TSH) 1.190 uIu/ml (0.300-4.500) Laboratory results per my review. Medications Administered Medications (Trade) Dose Ordered Sig/Rodney Route Start Time Stop Time Status Last Admin Dose Admin Sodium Chloride 500 ml @ 999 mls/hr Q31M STAT IV 07/21/17 11:02 07/21/17 11:32 DC 07/21/17 11:41 999 MLS/HR Promethazine HCl 12.5 mg/Sodium Chloride 50.5 ml @ 204 mls/hr NOW STAT IV 07/21/17 11:02 07/21/17 11:16 DC 07/21/17 11:43 204 MLS/HR Diphenhydramine HCl (Benadryl Inj) 25 mg NOW STAT IV 07/21/17 11:02 07/21/17 11:09 DC 07/21/17 11:43 25 MG Hydromorphone HCl (Dilaudid Inj) 0.5 mg NOW STAT IV 07/21/17 11:02 07/21/17 11:09 DC 07/21/17 11:43 0.5 MG ECG Per My Interpretation Indication: other (dizziness) Rate (beats per minute): 78 Rhythm: normal sinus Findings: other (T-wave abnormality anteriorly. No ST elevations. No PVCs. ) ED Course 1100: Past medical records reviewed. The patient was evaluated in room C6. A complete history and physical examination was performed. 1102: Ordered Dilaudid Inj 0.5 mg IV, Benadryl Inj 25 mg IV, Promethazine HCl 12.5 mg/Sodium Chloride 50.5 ml @ 204 mls/hr IV, Sodium Chloride 1000 ml @ 125 mls/hr IV, Sodium Chloride 500 ml @ 999 mls/hr IV. 1230: Ordered Gadavist 8.5 mmol IV. 1435: Upon reevaluation, the patient appeared to have improvement of her symptoms. I discussed findings with her. She verbalized agreement of the treatment plan. The patient was discharged home. Medical Decision Differential diagnosis: Etiologies such as migraine headache, vertigo, meningitis, sinusitis, CO exposure, ICH, SAH, infection, tumor, headache, sinus thrombosis, arterial dissection, as well as others were entertained. This patient was evaluated and appeared to be in no significant distress. Patient's records from earlier today were reviewed. CT scan of the head was performed and is negative. IV access was obtained and laboratory work was drawn. Patient was placed on the monitoring tech. Laboratory work is fairly unrevealing. The patient did improve significantly with IV hydration, IV Phenergan, Benadryl and Dilaudid. An MRI of the brain was performed considering her continued symptoms and negative CT scan. This study is negative for acute pathology. At this time I am reasonably certain that the patient is not suffered acute ischemic injury to the brain. It does appear that she has some ethmoidal sinusitis. She is likely suffering some vertiginous symptoms and/or migraine related to this finding. The patient was discharged on Augmentin 10 days, Zofran ODT as needed and meclizine 25 mg as needed. She will follow-up with her PCP this week for reevaluation and return to the ER for worsening of symptoms or any medical concerns. Medication Reconcilliation Current Medication List: was personally reviewed by me Blood Pressure Screening Patient's blood pressure: Elevated blood pressure Blood pressure disposition: Referred to PCP Impression Primary Impression: Sinusitis, acute ethmoidal Additional Impression: Vertigo Scribe Attestation The scribe's documentation has been prepared under my direction and personally reviewed by me in its entirety. I confirm that the note above accurately reflects all work, treatment, procedures, and medical decision making performed by me. Departure Information Dispostion Home / Self-Care Prescriptions Meclizine HCl (Meclizine HCl) 25 Mg Tab 1 TAB PO Q8 Y for vertigo, #15 TAB Prov: Ashley Box M.D. 07/21/17 Ondasetron Odt (ZOFRAN ODT) 4 Mg Tab 4 MG SL Q6H for Nausea, #15 TAB Prov: Ashley Box M.D. 07/21/17 Amoxicillin & Pot Clavulanate (Augmentin 875-125 mg) 1 Tab Tab 875 MG PO BID for 10 Days, #20 TAB Prov: Ashley Box M.D. 07/21/17 Referrals Marco A Burns M.D. (PCP) Forms HOME CARE DOCUMENTATION FORM, IMPORTANT VISIT INFORMATION Patient Instructions My [facility] Additional Instructions Diagnosis: Sinusitis, vertigo Augmentin 875 mg twice daily for 10 days. Zofran 4 mg ODT every 6 hours as needed for nausea. Meclizine 25 mg every 8 hours as needed for vertigo. Drink plenty of clear fluids. Follow-up with your primary care physician this week for reevaluation. Return to the ER for worsening of symptoms or any medical concerns. Problem Qualifiers
[2017-07-21 15:13] VITALS: BP 136/67; PULSE 67; O2SAT 95
== END 2017-07-21 15:13 | disposition home or self-care (01) ==
LOC: C.EDB 10:08 → C.EDC 15:13
DX: J01.20 Acute ethmoidal sinusitis, unspecified (principal); R42 Dizziness and giddiness; Z87.440 Personal history of urinary (tract) infections; F41.9 Anxiety disorder, unspecified; M35.3 Polymyalgia rheumatica; Z86.010 Personal history of colon polyps; E78.5 Hyperlipidemia, unspecified; Z87.442 Personal history of urinary calculi; Z90.49 Acquired absence of other specified parts of digestive tract; Z83.3 Family history of diabetes mellitus; Z82.49 Family history of ischemic heart disease and other diseases of the circulatory system; Z84.1 Family history of disorders of kidney and ureter; Z79.899 Other long term (current) drug therapy; Z88.1 Allergy status to other antibiotic agents; Z88.8 Allergy status to other drugs, medicaments and biological substances

== ENCOUNTER → 2017-10-23 | Outpatient (CLI) | payer OTHER ==
[~2017-10-23] MED LIST changes: +ANT25 PO; +GADAVIST IV PRN; +ONDA4TAB10 SL; -PRD/1 PO; +SULF800T23 PO
--- NOTE | 2017-10-23 10:24 | DIAGNOSTIC IMAGING REPORT ---
ABDOMEN COMBO CLINICAL HISTORY: 77 years-old Female presenting with D49.0 IPMN (intraductal papillary mucinous neoplasm). TECHNIQUE: Multisequence, multiplanar MR imaging of the abdomen was performed before and after the administration of intravenous contrast. IV contrast: None. COMPARISON: None. FINDINGS: Localizer images: Unremarkable. Lung bases: Lungs and pleural spaces clear. Normal heart size. No pericardial or pleural effusion. Liver: Normal morphology. Hepatic fat fraction measures 21.4% consistent with moderate steatosis. Stable multilobular T2 hyperintense nonenhancing 4.3 cm hepatic cyst at the right hepatic dome. Diminutive T2 hyperintense nonenhancing lesion at the inferior right hepatic lobe likely hepatic cyst or hamartoma. Patent hepatic vasculature. Conventional hepatic arterial anatomy. Biliary: No intrahepatic or extrahepatic biliary ductal dilatation. Gallbladder surgically absent. Pancreas: Moderate pancreatic parenchymal atrophy. The main pancreatic duct is not significantly dilated. Interval increase in the number of small T2 hyperintense round or lobular lesions scattered throughout the remaining pancreatic parenchyma predominantly in the tail and head of the pancreas. The largest is located in the pancreatic head that measures 8 mm as on prior exam. Several of these demonstrate communication is with the pancreatic duct. No peripancreatic inflammatory change to suggest pancreatitis. Spleen: Normal. Adrenal glands: Normal. Kidneys and ureters: Well-defined T2 hyperintense nonenhancing somewhat exophytic simple cyst noted in the left kidney. Few additional tiny cortical cysts noted bilaterally. Small hemorrhagic or proteinaceous cyst noted at the lower pole the left kidney. Bowel: Colonic diverticulosis. Stool noted in the cecum. Relatively short descending colon may suggest prior partial colectomy or congenital short colon. Peritoneal cavity: No free fluid. Lymph nodes: No enlarged lymph nodes in the abdomen. Vasculature: Aorta and IVC patent and normal in caliber. Abdominal wall: Normal. Musculoskeletal: Degenerative changes of the spine. IMPRESSION: 1. Interval increase in number of numerous tiny cystic lesions throughout the atrophic pancreatic parenchyma. If the patient has a history of pancreatitis, this could represent sequela of chronic pancreatitis. Alternatively, this may represent multiple small side branch intraductal papillary mucinous neoplasms. No worrisome features. Repeat contrast-enhanced MRI of the pancreas in 2-3 years per Anil 2012 criteria. 2. Moderate hepatic steatosis. Electronically signed by: Christian Perez M.D. 10/23/2017 10:23 AM Dictated Date/Time: 10/23/2017 10:12 AM
== END | disposition home or self-care (01) ==
LOC: C.MRI 09:04
PROVIDERS: ATTEND Internal Medicine Geriatric Medicine
DX: D49.0 Neoplasm of unspecified behavior of digestive system (principal); K76.0 Fatty (change of) liver, not elsewhere classified

== ENCOUNTER → 2017-10-27 | Outpatient (CLI) | payer OTHER ==
[~2017-10-27] MED LIST changes: -GADAVIST IV PRN
== END | disposition home or self-care (01) ==
LOC: C.LABPBG 10:54
PROVIDERS: ATTEND Internal Medicine Geriatric Medicine
DX: R30.0 Dysuria (principal)

== ENCOUNTER 2019-04-12 06:12 | Inpatient (IN) ==
--- NOTE | 2019-02-23 15:29 | PAT Medication Instructions ---
Medication Instructions Date of Service February 23, 2019 Home Medications Medication Instructions Recorded lisinopril 20 mg tablet 20 mg PO HS #90 tab 01/12/19 diclofenac sodium 1 % topical gel 4 gm TOP .COMPLEX #300 gm 02/21/19 hydrocodone 5 mg-acetaminophen 325 1 tab PO DAILY PRN #30 tab 02/22/19 mg tablet atorvastatin 10 mg PO HS cholecalciferol (vitamin D3) [Vitamin D3] 2,000 unit PO HS aspirin 81 mg tablet,delayed release 81 mg PO DAILY lisinopril 20 mg tablet 20 mg PO HS nitrofurantoin macrocrystal 100 mg PO UD PRN diclofenac sodium 1 % topical gel 4 gm TOP .COMPLEX hydrocodone 5 mg-acetaminophen 325 mg tablet 1 tab PO DAILY PRN STOP taking 24 hours before surgery diclofenac sodium 1 % topical gel 4 gm TOP .COMPLEX Take morning of surgery With a small sip of water, OTHERWISE NOTHING TO EAT OR DRINK AFTER MIDNIGHT: aspirin 81 mg tablet,delayed release 81 mg PO DAILY nitrofurantoin macrocrystal 100 mg PO UD PRN (if needed) hydrocodone 5 mg-acetaminophen 325 mg tablet 1 tab PO DAILY PRN (okay to take up to 4 hours prior to surgery if needed) Take evening before surgery atorvastatin 10 mg PO HS cholecalciferol (vitamin D3) [Vitamin D3] 2,000 unit PO HS lisinopril 20 mg tablet 20 mg PO HS nitrofurantoin macrocrystal 100 mg PO UD PRN (if needed) hydrocodone 5 mg-acetaminophen 325 mg tablet 1 tab PO DAILY PRN (if needed) Other Notes If you have any questions please call us at [phone] or [phone] or [phone] or [phone]
--- NOTE | 2019-02-24 14:57 | Anesthesiology Consultation ---
Date of Service February 24, 2019 Assessment & Plan (1) Encounter for pre-operative examination: Awaiting review preop testing (labs, EKG, CXR). Chart Review Chart Review: Patient seen in Pre Admission Testing Teaching & Discussion Pre-Anesthesia Teaching/Discussion Notes: Instructed NPO after midnight before surgery,except medications with 15 cc of water. Medication instructions provided according to the PAT guidelines. History Surgery Operation Date: 04/12/19 10:40 Proposed Procedures p Right Total Knee Replacement - Mitchell Trimble MD Height/Weight Height: 5 ft 3 in Weight: 86.4 kg Allergies Allergy/AdvReac Type Severity Reaction Status Date / Time Cipro Allergy Unknown rash Verified 09/22/17 09:56 ciprofloxacin Allergy Unknown rash Verified 02/24/19 13:26 metoclopramide Allergy Unknown seizure-like Verified 02/24/19 13:26 activity metronidazole Allergy Unknown rash Verified 02/24/19 13:26 prochlorperazine Allergy Unknown seizure-like Verified 02/24/19 14:50 activity indomethacin AdvReac Unknown nausea Verified 02/24/19 13:26 Medications Home Medications Medication Instructions Recorded Confirmed Last Taken atorvastatin 10 mg PO HS 05/27/18 02/24/19 05/26/18 cholecalciferol (vitamin D3) 2,000 unit PO HS 05/27/18 02/24/19 05/26/18 [Vitamin D3] aspirin 81 mg tablet,delayed 81 mg PO DAILY tab 01/11/19 02/24/19 Unknown release lisinopril 20 mg tablet 20 mg PO HS #90 tab 01/12/19 02/24/19 Unknown nitrofurantoin macrocrystal 100 mg PO UD PRN 02/17/19 02/24/19 Unknown diclofenac sodium 1 % topical gel 4 gm TOP .COMPLEX #300 gm 02/21/19 02/24/19 Unknown hydrocodone 5 mg-acetaminophen 325 1 tab PO DAILY PRN #30 tab 02/22/19 02/24/19 Unknown mg tablet Past Medical History Medical History Anxiety (Chronic) Chronic kidney disease, stage III (moderate) Fatty liver History of diverticulitis (Acute) 2013 History of frequent urinary tract infections no issues x summer 2018 Hyperlipemia (Chronic) Hypertension Kidney stone hx Obesity Osteoarthritis PMR (polymyalgia rheumatica) (Chronic) Exercise / Class Metabolic Activity III < 4 Walking/Shop/Light housework Past Family History Family History Sister Rheumatoid arthritis Breast cancer Other Diabetes Family history of kidney disease Hypertension Past Surgical History Surgical History History of appendectomy (Resolved) History of bilateral oophorectomies History of cataract surgery R/L History of cholecystectomy (Resolved) History of colon resection 05/2013 2/2 diverticulitis History of colonoscopy History of hysterectomy Past Anesthesia History No Hx of Anesthesia Complications and No Family Hx of Anesthesia Complications History of PONV No Hx of PONV and No Hx of Motion Sickness Social History Smoking Status: Never smoker Do You Dip or Chew Tobacco: No Hx Alcohol Use: Yes alcohol intake frequency: a few times a month (once/week) Hx Substance Use: No substance use type: prescription drug Review of Systems Patient denies chest pain, shortness of breath, cough, wheezing, palpitations. Physical Exam Vital Signs VITALS BP 141/83 P 80 TEMP 97.8 SP02 98%RA RESP 20 PHYSICAL Full neck and c-spine range of motion. Full TMJ range of motion. TMD 3.5 finger breaths Mallampati Score 2 Dentition: partials upper/lower Lungs: clear throughout to auscultation Cardiac: regular rate and rhythm, no murmurs noted Spine: normal Carotid arteries: negative bruit Extremities: no edema Testing Echocardiogram Date: 01/25/16 LVEF 60%. Diastolic dysfunction. Valves not well visualized, however no significant regurgication or stenosis appreciated.
--- NOTE | 2019-02-24 15:34 | XRay Report ---
XR chest Pre-admission PA/Lat HISTORY: 78 years-old Female pat preoperative exam. No acute chest complaints COMPARISON: Chest radiograph 6 06/04/2016 TECHNIQUE: PA and lateral views of the chest FINDINGS: Cardiomediastinal and hilar silhouettes are within normal limits. Calcified plaque of the thoracic ao rtic arch. No pneumothorax, pleural effusion, focal airspace consolidation or overt pulmonary edema. Bones of the chest appear grossly intact. IMPRESSION: No acute process. ACT 112: Negative or not required by law. The above report was generated using voice recognition software. It may contain grammatical, syntax o r spelling errors. Electronically signed by: Aditya Gilman M.D. 02/24/2019 3:33 PM
[2019-02-24 16:37] LABS: Basophils # (auto) 0.02 K/uL (0-0.2); Basophils % (auto) 0.3 %; Eosinophils # (auto) 0.16 K/uL (0-0.5); Eosinophils % (auto) 2.2 %; Hematocrit (blood only) 35.7 % (37-47); Hemoglobin 12.4 g/dL (12.0-16.0); Lymphocytes # (auto) 2.06 K/uL (1.2-3.4); Lymphocytes % (auto) 27.8 %; Mean Corpuscular Hgb Conc 34.7 g/dL (32-36); Mean Platelet Volume 11.6 fL (7.4-10.4); Monocytes # (auto) 0.69 K/uL (0.11-0.59); Monocytes % (auto) 9.3 %; Neutrophils # (auto) 4.48 K/uL (1.4-6.5); Neutrophils % (auto) 60.4 %; Platelet Count 200 K/uL (130-400); RDW Coefficient of Variation 13.5 % (11.5-14.5); RDW Standard Deviation 45.2 fL (36.4-46.3); Red Blood Count 3.88 M/uL (4.2-5.4); White Blood Count 7.41 K/uL (4.8-10.8)
[2019-02-24 16:44] LABS: BUN Creatinine Ratio 22.1 (10-20); Blood Urea Nitrogen 26 mg/dl (7-18); C Reactive Protein < 0.29 mg/dl (0-0.29); Calcium 9.1 mg/dl (8.5-10.1); Carbon Dioxide 26 mmol/L (21-32); Chloride 107 mmol/L (98-107); Creatinine Clr Calc Pharmacy 42.3 ml/min; Est GFR (African American) 52.6; Est GFR (Non-African American) 45.4; Glucose 109 mg/dl (70-99); Potassium 3.7 mmol/L (3.5-5.1); Sodium 139 mmol/L (136-145)
[2019-02-24 16:50] LABS: INR 1.1 (0.9-1.1); Partial Thromboplastin Time 26.3 Seconds (21.0-31.0); Prothrombin Time 10.9 Seconds (9.0-12.0)
--- NOTE | 2019-04-08 20:20 | History and Physical Report ---
DATE OF ADMISSION: 04/12/2019 CHIEF COMPLAINT: Bilateral knee pain and discomfort, right side greater than left. HISTORY OF PRESENT ILLNESS: The patient is a 79-year-old white female who is referred by my partner Dr. Pompa, for surgical treatment of her knees. She has a long history of bilateral knee pain and discomfort, the right side a bit worse than the left. She has been through extensive conservative treatment, which did help quite a bit initially. This has become less successful over time. She has a limited walking tolerance due to her pain. She has nighttime pain. She has difficulty going up and down steps. She limps more as the day goes on. She has failed conservative treatment and would like to have her right knee replaced. PAST MEDICAL HISTORY: Significant for: 1. Hypertension. 2. Elevated cholesterol. 3. History of PMR, but currently off medicines. 4. Mild obesity with BMI of 34. 5. Kidney stones. PAST SURGICAL HISTORY: Includes: 1. Hysterectomy. 2. Appendectomy. 3. Cataract surgery. 4. Cholecystectomy. 5. Colon resection. ALLERGIES: REGLAN, COMPAZINE, CIPRO AND FLAGYL. CURRENT MEDICINES: Include: 1. Lisinopril 20 mg a day. 2. Atorvastatin 10 mg a day. 3. Hydrocodone p.r.n. for pain. SOCIAL HISTORY: A 79-year-old female. She is . She lives in [place]. Does not smoke. FAMILY HISTORY: Noncontributory. REVIEW OF HISTORY: Negative for diabetes, neurologic problems, vascular problems or bleeding disorders. Denies any chest pain or shortness of breath. No history of DVT or PE. No known bleeding problems. PHYSICAL EXAMINATION: GENERAL: Shows a pleasant, middle-aged female. Looks to be in pretty good health. HEENT: Benign. NECK: Supple, no lymphadenopathy. LUNGS: Clear to auscultation. HEART: Has a regular rate and rhythm. ABDOMEN: Soft, nontender, nondistended. EXTREMITIES: Grossly neurovascularly intact except as follows: Examination of both knees reveal patient ambulates independently. She walks without any obvious limp. Examination of the right knee reveals slight varus alignment. She is tender over the medial joint line. Small knee effusion. Range of motion about 5 degrees short of full extension to 125 degrees of flexion. There is no instability. No pain with hip motion. Examination of the left knee reveals slight varus alignment. She is tender over the medial joint line. Small knee effusion. Range of motion is 5-125. No instability. X-RAYS: X-rays of both knees reveal advanced bilateral knee DJD. She has got complete loss of her medial joint space on both sides. She has got chondrocalcinosis, particularly laterally. She has got osteophytes, particularly in the medial compartment of both knees. ASSESSMENT: A 79-year-old white female with advanced bilateral knee degenerative joint disease and chondrocalcinosis. Both knees are pretty severe, but the right knee is more symptomatic. She has failed conservative treatment and elected to proceed with right knee replacement. PLAN: We are going to proceed with right knee replacement. The risks and benefits of this procedure were explained to the patient including but not limited to DVT, PE, , infection, neurological injury, vascular injury, bleeding problem, pain, limited range of motion, stiffness, failure to relieve her symptoms, incomplete relief of symptoms, need for further surgery in the future, fracture, leg length inequality, nerve palsy, persistent pain, etc. The patient understands and desires to proceed. Informed consent was obtained. We did talk about holding the lisinopril on the morning of surgery. She was to get off the hydrocodone before surgery.
[~2019-04-12 06:12] MED LIST changes: +ACETAMINOPHEN 500 MG TAB PO SCH; -ANT25 PO; -ATOR10TA82 PO; +BUPIVACAINE LIPOSOME/PF 266 MG, BUPIVACAINE/EPINEPHRINE 50 ML, SODIUM CHLORIDE 0.9% 30 ... INFIL SCH; +CEFAZOLIN 2000MG 2,000 MG/15 ML SYR IV SCH; -ERGO1TAB12 PO; +FAMOTIDINE 20 MG TAB PO SCH; +GABAPENTIN 300 MG CAP PO SCH; -HYDR-5688 PO; -HYDR200T5 PO; -LISI-461 PO; +LR 15ML/HR IV SCH; +LR 60ML/HR IV SCH; +METOCLOPRAMIDE HCL 10 MG TABLET PO SCH; -ONDA4TAB10 SL; -PANT40TA PO; -SULF800T23 PO
--- NOTE | 2019-04-12 06:48 | History & Physical Bridge Note ---
Date of Service April 12, 2019 History & Physical Bridge Note I have examined the patient, reviewed the History & Physical and in the interval since the performance of the History & Physical I have noted the following changes of clinical significance: no changes noted
[2019-04-12] MEDS ORDERED: MIDAZOLAM HCL 1 MG/ML 2ML VIAL ONE (07:13)
[2019-04-12] MEDS ORDERED: fentaNYL citrate 100 MCG/2 ML VIAL ONE (07:13)
[2019-04-12] MEDS ORDERED: BUPIVACAINE 0.5 % 5 MG/1 ML PF 10ML VIAL ONE (07:16)
[2019-04-12] MEDS ORDERED: ePHEDrine sulfate 50 MG/ML AMP IV PRN (08:01)
[2019-04-12] MEDS ORDERED: fentaNYL citrate 100 MCG/2 ML VIAL IV PRN (08:01)
[2019-04-12] MEDS ORDERED: ATROPINE SULFATE 0.1 MG/ML 10ML SYR IV PRN (08:01)
[2019-04-12] MEDS ORDERED: ONDANSETRON INJ 2 MG/ML 2 ML VIAL IV PRN (08:01)
[2019-04-12] MEDS ORDERED: BUPIVACAINE LIPOSOME 1.3% 266 MG/20 ML VIAL ONE (08:47)
[2019-04-12] MEDS ORDERED: SODIUM CHLORIDE 0.9% PF 50 ML VIAL ONE (08:47)
[2019-04-12] MEDS ORDERED: BACITRACIN INJ 50,000 UNIT VIAL ONE (08:47)
[2019-04-12] MEDS ORDERED: BUPIVACAINE/EPINEPHRINE 0.25% 1:200,000 30 ML VIAL ONE (08:47)
[2019-04-12] MEDS ORDERED: PROPOFOL IV EMULSION 10 MG/ML 20 ML VIAL IV ONE ×3 (09:12)
[2019-04-12] MEDS ORDERED: TRANEXAMIC ACID / 0.7% NACL 1,000 MG/100 ML BAG IV STA (09:18)
[2019-04-12] MEDS ORDERED: TRANEXAMIC ACID / 0.7% NACL 1000MG/100ML BAG IV ONE (09:20)
--- NOTE | 2019-04-12 10:54 | Operative Report ---
Post Operative Report Pre & Post Diagnosis Operation Date: 04/12/19 08:50 Pre-Op Diagnosis: Right Knee Advanced Degenerative Joint Disease Post-Op Diagnosis: Right Knee Advanced Degenerative Joint Disease I identified the patient and participated in the time-out.: Yes Procedure Operation Date: 04/12/19 08:50 Actual Procedures p Right Total Knee Arthroplasty(Right) - Mitchell Trimble MD Surgeon Mitchell Trimble MD Speech And Language Specialist Sharon, PAC Estimated Blood Loss 50 Findings Consistent with Post-Op Diagnosis Operative findings revealed advanced right knee DJD. She did have grade 4 changes in all 3 compartments most severe in the medial side with severe eburnation of the medial femoral condyle medial tibial plateau. She had osteophytes primarily in the medial compartment. She had a varus deformity to her knee with a large to moderate sized joint effusion. Also had evidence of chondrocalcinosis particularly laterally. Fluids 1100 cc. Specimens Right knee sent for pathology. Drains None. Anesthesia Type Spinal MAC Complications none Disposition Accompanied Patient To Recovery: Yes Disposition: Recovery Room Indications Patient is a 79-year-old female whose had a several year history of increasing bilateral knee pain discomfort right side greater than left patient been through extensive conservative treatment by my partner Dr. Pompa. She did have persistent and progressive and limiting knee pain. She failed conservative care and elected proceed with total knee arthroplasty. Description of Procedure Operative implants consisted of: 1. Biomet Vanguard size 62.5 right posterior by femoral component. 2. Biomet size 63 tibial tray. 3. 10 mm posterior stabilized polyethylene insert. 4. 31 x 8 all poly-patella. Patient was taken to the operating room identified and placed on the operating table supine position protectors were properly padded. IV antibiotics were provided by the anesthesia team. A spinal anesthetic and abductor canal block had provided in the holding area. Sevilla catheter was placed in sterile fashion. Right thigh tip was then placed in the right lower extremity was then prepped and draped in the usual sterile fashion. The right leg was elevated and exsanguinated with use of an Esmarch interspace at 300 mmHg. An anterior approach to the right knee was then performed to longitudinal incision centered over the patella. Sharp dissection was carried through subcutaneous tissue down over the extensor mechanism. Medial parapatellar arthrotomy incision was made. Some subperiosteal dissection was carried out medially. The fat pad was resected from each patella tendon. Lateral patellofemoral ligament was released. Patella was subluxated laterally and the knee was flexed. The osteophytes were taken off distal femur. The ACL and PCL were then released from the distal femur and the tibia subluxated anteriorly. The external tibial alignment jig was then placed in the interface the tibia and adjusted 14 mm medially. Proximal tibial cut was made to move about a millimeter or 2 of bone from the most efficient aspect of the medial tibial plateau. Some osteophytes were taken off medial and posterior medially. Tibia sized to a size 63. Attention drawn the femur. The distal femur then with a sharp drop with intramedullary canal was suction. A right 5 degree valgus cutting guide was placed but this femoral cutting block was pinned in place. Distal femoral cut was made to take an additional 3 mm of bone off distal femur. The femur was then sized to a size 62.5. We did downsize this slightly. The AP cutting block was pinned parallel to the epicondylar axis which was 3 degrees of external rotation. The anterior cut, anterior chamfer, posterior cut, posterior chamfer cuts were made. Box cutting guide was placed in just slight lateral and the box cut was made. The knee was flexed with the remnants of the medial lateral menisci were excised. The osteophytes were taken off the posterior aspect the femur. A trial femoral component was placed. The tibial tray was pinned in maximum external rotation and the drill and stem punch were used to create defect in the proximal tibia for the tibial tray. Knee was then trialed the 10 mm insert fit most kevin ropriately. Attention drawn the patella. The patella was cleaned of all soft tissues. Patella thickness measured 18 mm in thickness was cut down to 12. It was sized to a size 31 patella. Locals w ere drilled for 31 patella. The lateral osteophyte was removed. Patella button was placed. Knee was taken through range of motion patella tracked nicely with no thumbs test. Attention then turned to placing the permanent components. All trial implants were removed. Bone plug was placed in the disc femur limit blood loss. The wound was irrigated extensively with pulsatile lavage solution. A double batch Palacos G cement was mixed. BiomPhase Visionguard size 62.5 right posterior by femoral component, size 63 tibial tray, and a 31 x 8 all poly- patella then cement in place. Knees brought under full extension total cement hardened. Final cement check was then performed. The pericapsular tissues were injected with total of 100 cc of combination of 20 cc of Exparel, 30 cc normal saline, 50 cc of quarter percent Marcaine with epinephrine. Patient did receive 1 g of tranexamic acid per the tourniquet was then let down for turn time 51 minutes but hemostasis assured use electrocautery. Extensor mechanism closed with combination 1 PDS suture #1 Vicryl suture in a [id number] fashion to the extensor mechanism was checked and found to be intact with subcutaneous tissue then closed with 2 Dexon suture in a buried interrupted fashion. Skin was closed skin calista. Leg was then cleaned dried and sterile dressing composed of Xeroform, 4 x 4's, sterile cast padding Myron bandage were applied. Patient then transferred to the recovery room in stable condition. Patient tolerated procedure well no complications. I attest to the content of the Intraoperative Record and any orders documented therein. Any exceptions are noted below.
--- NOTE | 2019-04-12 11:11 | XRay Report ---
XR knee RT 1 or 2V routine CLINICAL HISTORY: Surgical Post Op COMPARISON: Knee radiographs February 24, 2019. FINDINGS: Alignment of the total right knee arthroplasty is anatomic. There is no fracture or unexpe cted radiopaque foreign body. There are skin calista. IMPRESSION: Expected findings following total right knee arthroplasty. ACT 112: Negative or not required by law. Electronically signed by: Primitivo Eubanks M.D. 04/12/2019 11:09 AM
[2019-04-12] MEDS ORDERED: METOCLOPRAMIDE HCL INJ 5 MG/ML 2 ML VIAL IV PRN (11:26)
[2019-04-12] MEDS ORDERED: NALOXONE HCL 0.4 MG/1 ML VIAL/CARP IV PRN (11:26)
[2019-04-12] MEDS ORDERED: MAGNESIUM HYDROXIDE SUSP 30 ML UDC PO PRN (11:26)
[2019-04-12] MEDS ORDERED: bisacodyL 10 MG SUPP PR PRN (11:26)
[2019-04-12] MEDS ORDERED: ALUMINUM/MAGNESIUM SUSP 30 ML UDC PO PRN (11:26)
--- NOTE | 2019-04-12 11:40 | Anesthesiology Progress Note ---
Date of Service April 12, 2019 Anesthesia Post Procedure Vital Signs Vital Signs: Temp Pulse Pulse Resp BP Pulse Ox 04/12/19 11:32 97.3 F L 83 18 125/74 97 04/12/19 11:05 97.9 F 86 14 128/61 98 04/12/19 10:55 83 14 124/57 L 98 04/12/19 10:46 97.9 F 88 14 120/55 L 97 04/12/19 06:41 98.6 F 91 H 20 171/83 H 97 Transfer of Care Handoff Completed per policy Notes Mental Status: alert / awake / arousable and participated in evaluation Patient Amnestic to Procedure: Yes Nausea / Vomiting: adequately controlled Pain: adequately controlled Airway Patency, RR, SpO2: stable & adequate BP & HR: stable & adequate Hydration State: stable & adequate Neuraxial Anesthesia: was administered and sensory block is resolving Anesthetic Complications: no major complications apparent and Pt Satisfied with anesthetic care
[2019-04-12] MEDS: SODIUM CHLORIDE 0.9% 1000ML 1,000 ML IV SCH ×2 (12:07→21:18)
[2019-04-12] MEDS: KETOROLAC TROMETHAMINE 15 MG/ML VIAL IV SCH ×3 (12:17→23:40)
[2019-04-12] MEDS: ACETAMINOPHEN 500 MG TAB PO SCH ×2 (13:22→21:15)
--- NOTE | 2019-04-12 13:52 | Progress Note ---
DATE: 04/12/2019 SUBJECTIVE: 79-year-old white female postop from right knee replacement. She is doing well. Does not have any feeling or pain yet in her legs. No chest pain or shortness of breath. Not feeling dizzy or lightheaded. OBJECTIVE: VITAL SIGNS: Temperature 36.5. Vital signs stable. GENERAL: Pleasant, middle-aged female. She is sitting on bed, looks entirely comfortable. LUNGS: Clear to auscultation. HEART: Has a regular rate and rhythm. ABDOMEN: Soft, nontender, nondistended. EXTREMITIES: Grossly neurovascularly intact except as follows: Examination of the right lower extremity reveals the leg to be well aligned. Dressing is clean, dry and intact. She has brisk refill with good distal pulse. She has no significant sensory or motor function in either leg yet. X-RAYS: X-rays of the right knee from recovery room were reviewed. It shows cemented posterior stabilized total knee arthroplasty. Components looked to be in good position. No signs of problems. ASSESSMENT: 79-year-old white female postop from right knee replacement, doing well. Block still in effect. PLAN: 1. DVT prophylaxis including thigh-high TEDs, SCDs, and aspirin twice a day. 2. PT/OT. Weight bear as tolerated. Right total knee protocol. 3. Pain control, doing well with current pain regimen. 4. IV antibiotics x24 hours. 5. Disposition: Plan to discharge to home with some home health once adequately recovered and medically stable.
[2019-04-12] MEDS: TRAMADOL HCL 50 MG TABLET PO PRN (16:17)
[2019-04-12] MEDS ORDERED: TRANEXAMIC ACID / 0.7% NACL 1,000 MG/100 ML BAG IV SCH (16:45)
[2019-04-12] MEDS: FERROUS GLUCONATE 324 MG TAB PO SCH ×2 (17:45→19:38)
[2019-04-12] MEDS: ASCORBIC ACID 500 MG TAB PO SCH ×2 (17:45→19:37)
[2019-04-12] MEDS: ONDANSETRON INJ 2 MG/ML 2 ML VIAL IV PRN (17:58)
[2019-04-12] MEDS: CEFAZOLIN 2000MG 2,000 MG/15 ML SYR IV SCH (19:38)
[2019-04-12] MEDS: SENNA 8.6 MG TAB PO SCH (19:46)
[2019-04-12] MEDS: DOCUSATE SODIUM 100 MG CAP PO SCH (19:47)
[2019-04-12] MEDS: CHOLECALCIFEROL 1,000 UNITS 25 MCG TAB PO SCH (21:15)
[2019-04-12] MEDS: ASPIRIN 81 MG ECTAB PO SCH (21:15)
[2019-04-12] MEDS: ATORVASTATIN 10 MG TAB PO SCH (21:15)
[2019-04-12] MEDS: lisinopriL 20 MG TAB PO SCH (21:15)
[2019-04-12] MEDS: HYDROmorphone INJ 0.5 MG/0.5 ML SYR IV PRN (21:18)
[2019-04-13] MEDS: CEFAZOLIN 2000MG 2,000 MG/15 ML SYR IV SCH (01:26)
[2019-04-13] MEDS: ACETAMINOPHEN 500 MG TAB PO SCH ×3 (05:04→20:37)
[2019-04-13] MEDS: KETOROLAC TROMETHAMINE 15 MG/ML VIAL IV SCH ×3 (05:05→18:39)
[2019-04-13 05:13] LABS: Hematocrit (blood only) 29.9 % (37-47); Hemoglobin 10.2 g/dL (12.0-16.0); Mean Corpuscular Hemoglobin 31.7 pg (25-34); Mean Corpuscular Hgb Conc 34.1 g/dL (32-36); Mean Corpuscular Volume 92.9 fL (80-100); Mean Platelet Volume 11.2 fL (7.4-10.4); Platelet Count 150 K/uL (130-400); RDW Coefficient of Variation 13.1 % (11.5-14.5); RDW Standard Deviation 44.7 fL (36.4-46.3); Red Blood Count 3.22 M/uL (4.2-5.4); White Blood Count 6.41 K/uL (4.8-10.8)
[2019-04-13 05:33] LABS: BUN Creatinine Ratio 19.8 (10-20); Calcium 8.1 mg/dl (8.5-10.1); Creatinine Clr Calc Pharmacy 47.2 ml/min; Est GFR (Non-African American) 52.6; Potassium 4.3 mmol/L (3.5-5.1)
[2019-04-13] MEDS: MULTIVITAMIN TAB PO SCH (08:23)
[2019-04-13] MEDS: ASCORBIC ACID 500 MG TAB PO SCH ×2 (08:24→18:38)
[2019-04-13] MEDS: ASPIRIN 81 MG ECTAB PO SCH ×2 (08:24→20:36)
[2019-04-13] MEDS: TRAMADOL HCL 50 MG TABLET PO PRN ×3 (08:24→22:43)
[2019-04-13] MEDS: FERROUS GLUCONATE 324 MG TAB PO SCH ×2 (08:24→18:37)
[2019-04-13] MEDS: DOCUSATE SODIUM 100 MG CAP PO SCH ×2 (08:24→20:36)
[2019-04-13] MEDS: ONDANSETRON INJ 2 MG/ML 2 ML VIAL IV PRN (09:15)
--- NOTE | 2019-04-13 12:17 | Progress Note ---
DATE: 04/13/2019 SUBJECTIVE: A 79-year-old white female. She is postop day 1 from right total knee replacement. She is doing pretty well. Pain has been controlled, a bit more painful today. No chest pain or shortness of breath. Not feeling dizzy or lightheaded. Some occasional nausea. OBJECTIVE: VITAL SIGNS: Temperature 36.7. Vital signs stable. GENERAL: Shows a pleasant elderly female. She is sitting up in bed, looks pretty comfortable. EXTREMITIES: Examination of the right leg reveals the dressing to be clean, dry and intact. She can dorsiflex and plantarflex her foot appropriately. She is neurologically intact. LABORATORY DATA: Hemoglobin 10.2. Hematocrit 29.9. Electrolytes are stable. ASSESSMENT: A 79-year-old white female postoperative day 1 from right knee replacement, doing pretty well. Pain is controlled. She is mildly anemic, but asymptomatic. PLAN: 1. DVT prophylaxis including thigh-high TEDs, SCDs, and aspirin twice a day. 2. PT/OT. Weight bear as tolerated. Right total knee protocol. 3. Pain control, doing pretty well with current pain regimen. 4. Disposition: She is planning to be discharged home likely with some home health once adequately recovered and medically stable.
[2019-04-13] MEDS: HYDROmorphone INJ 0.5 MG/0.5 ML SYR IV PRN (12:19)
[2019-04-13] MEDS: ATORVASTATIN 10 MG TAB PO SCH (20:37)
[2019-04-13] MEDS: lisinopriL 20 MG TAB PO SCH (20:37)
[2019-04-13] MEDS: CHOLECALCIFEROL 1,000 UNITS 25 MCG TAB PO SCH (20:37)
[2019-04-13] MEDS: SENNA 8.6 MG TAB PO SCH (20:37)
[2019-04-14] MEDS: KETOROLAC TROMETHAMINE 15 MG/ML VIAL IV SCH ×2 (00:55→06:18)
[2019-04-14] MEDS: ACETAMINOPHEN 500 MG TAB PO SCH (06:18)
[2019-04-14] MEDS: DOCUSATE SODIUM 100 MG CAP PO SCH (07:32)
[2019-04-14] MEDS: ASPIRIN 81 MG ECTAB PO SCH (07:32)
[2019-04-14] MEDS: ASCORBIC ACID 500 MG TAB PO SCH (07:32)
[2019-04-14] MEDS: MULTIVITAMIN TAB PO SCH (07:33)
[2019-04-14] MEDS: FERROUS GLUCONATE 324 MG TAB PO SCH (07:33)
[2019-04-14] MEDS: TRAMADOL HCL 50 MG TABLET PO PRN (07:36)
--- NOTE | 2019-04-14 07:46 | Progress Note ---
DATE: 04/14/2019 SUBJECTIVE: A 79-year-old white female postop day #2 from right knee replacement. She is doing quite well. Pain is controlled. No chest pain or shortness of breath. Not feeling dizzy or lightheaded. OBJECTIVE: VITAL SIGNS: Temperature 36.7. Vital signs stable. GENERAL: Shows a pleasant elderly female. She is walking around the room with a walker, doing quite well. EXTREMITIES: Examination of the right leg reveals the dressing to be in place. Just a trace bit of bloody drainage. Calves are soft and supple. She is neurologically intact. ASSESSMENT: A 79-year-old white female postop day #2 from a right knee replacement, doing pretty well. Pain is controlled. PLAN: 1. DVT prophylaxis including thigh-high TEDs, SCDs, and aspirin twice a day. 2. PT/OT. Weight bear as tolerated. Right total knee protocol. 3. Pain control, doing well with current pain regimen. 4. Disposition: Plan to discharge to home with some home health later today.
--- NOTE | 2019-04-18 16:37 | Discharge Summary ---
ADMITTING PHYSICIAN AND SURGEON: Dr. Mitchell Trimble. ADMITTING DIAGNOSIS: Right knee degenerative joint disease. SURGERY PERFORMED: Right total knee arthroplasty. SECONDARY DIAGNOSES: Hypertension, elevated cholesterol, history of PMR, mild obesity, kidney stones. CONSULTS: None obtained. HISTORY AND PHYSICAL EXAMINATION: Well documented in the patient's chart. HOSPITAL COURSE: The patient was admitted on 04/12/2019 underwent total knee arthroplasty, tolerated the procedure well. There were no complications. She was transferred to the PACU postoperatively and later to the orthopedic floor for further care. She was given Ancef for antibiotic prophylaxis, HERBERTH stockings, SCDs and aspirin for DVT prophylaxis. Hemoglobin, hematocrit and vital signs were monitored during her hospital stay and remained stable. She did not require any blood transfusions. There were no complications. On postoperative day #2, she was tolerating a regular diet, pain was controlled with oral pain medicine. She was participating in physical therapy. Postop day 2, she was discharged home, set up with home health services. She was given printed discharge instructions as well as new prescriptions for extra strength Tylenol, aspirin, iron supplement and tramadol. Continue home medications with the exception of her home dose of aspirin which was changed and she was instructed to stop hydrocodone. Continue physical therapy, weightbearing as tolerated, HERBERTH stockings. Follow up approximately 2 weeks postop or sooner if there are any problems or concerns.
== END 2019-04-14 10:43 | disposition home health service (06) | DRG 470 ==
LOC: ASU 06:12 → 3E 10:46

== ENCOUNTER 2021-09-24 20:02 | Inpatient (IN) ==
[2021-09-24] MEDS ORDERED: ONDANSETRON INJ 2 MG/ML 2 ML VIAL IV STA ×2 (20:18→22:34)
[2021-09-24] MEDS ORDERED: SODIUM CHLORIDE 0.9% 1000ML 1,000 ML IV ONE (20:18)
[2021-09-24] MEDS ORDERED: fentaNYL citrate 100 MCG/2 ML VIAL IV STA (20:18)
[2021-09-24 20:35] LABS: Basophils # (auto) 0.04 K/uL (0-0.2); Basophils % (auto) 0.2 %; Hematocrit (blood only) 36.3 % (34.1-44.9); Hemoglobin 12.8 g/dl (12.0-16.0); Immature Granulocytes # (auto) 0.06 K/uL (0.00-0.02); Immature Granulocytes % (auto) 0.4 %; Lymphocytes # (auto) 1.19 K/uL (1.2-3.4); Lymphocytes % (auto) 7.4 %; Mean Corpuscular Hgb Conc 35.3 g/dL (32.0-36.0); Mean Corpuscular Volume 87.9 fL (80.0-100.0); Mean Platelet Volume 10.8 fL (9.4-12.3); Monocytes # (auto) 1.34 K/uL (0.24-0.82); Monocytes % (auto) 8.3 %; Neutrophils # (auto) 13.52 K/uL (1.4-6.5); Neutrophils % (auto) 83.7 %; Platelet Count 209 K/uL (130-400); RDW Coefficient of Variation 12.2 % (11.5-14.5); RDW Standard Deviation 39.5 fL (36.4-46.3); Red Blood Count 4.13 M/uL (3.93-5.22); White Blood Count 16.15 K/ul (4.8-10.8)
--- NOTE | 2021-09-24 20:39 | Emergency Department Note ---
Impression & Plan Acute pyelonephritis, Nausea and vomiting, Acute hyponatremia ED Provider Note Name: LEONOR HAYES Age: 81 Sex: F Arrives Via: Walk-In Informant: Patient, family ED Provider: Arsen Davies MD Chief Complaint: Vomiting Impression: As per impressions above Medical Decision Makin-year-old female who has on and off UTIs arrives with worsening nausea vo miting and weakness. She is dehydrated and uncomfortable on arrival. She was given fluids and antinausea medication. A CT of the abdomen pelvis was obtained which is unremarkable other than evidence of cystitis. UA is concerning for acute cystitis as well. In the setting of tachycardia and elevated white blood cell count and the findings of infection I do feel she is early sepsis and thus blood cultures and lactic acid were obtained. She is given some IV fluids though is not in septic shock and 30/kg fluid bolus would not be indicated in this patient. Initial lactate was within normal range. She did receive empiric antibiotics. Patient is feeling much improved and does look a lot better. Her sodium is somewhat low which is new for her as well. This said I feel that hospitalization would be indicated at this time. At time of hospitalization patient is awake alert oriented without peritonitis. Prior Medical Record and Triage/Nursing Notes reviewed by Me Additional history obtained from chart Differentials:Gastroenteritis, food borne illness, infections, appendicitis, diverticulitis, inflammatory bowel disease, obstruction, GI bleed, biliary pathology, volvulus, as well as other pathologies. Vital Signs: reviewed and remarkable for tachycardia Interventions: Normal saline bolus, Zofran IV, fentanyl IV, cefepime IV, Labs:Reviewed and remarkable for mild leukocytosis, hyponatremia Imaging:CT of the abdomen pelvis evidence of cystitis noted Consults:Hospitalist for further management Plan: Disposition:Hospitalization. Condition: Good History of Present Illness:81-year-old female arrives for evaluation of abdominal pain. Patient notes on and off urinary frequency over the few weeks. She did just complete a course of Macrobid few days ago and had a repeat urine culture. Over the last 2 days increasing urinary frequency and difficulty controlling bladder. Today associated with worsening abdominal pain. She notes diffuse lower abdominal pain primarily in the last side and into her back. Associated with nausea and vomiting. Denies any syncope, chest pain, shortness of breath, midline back pain, urinary burning, diarrhea, leg swelling, rashes, headache nor other symptoms. She is unable to take any medications due to vomiting. Movement makes worse and rest makes better. ROS: See above HPI for pertinent positives & negatives. A total of 10 systems reviewed and were otherwise negative. Past Medical History:See Below Past Surgical History:See Below Family History:See Below Social History:See Below Home Medications:See Below Allergies:See Below Vitals:Blood Pressure: 151/75, Pulse 108, RR 20, T 37.5C, O2 93% on RA Physical Exam: GENERAL: Patient is uncomfortable/unwell appearing and in moderate distress. Periodically dry heaving EYES: No scleral icterus, unremarkable pupils. ENT: Mucous membranes moist, no nasal congestion. NECK: No masses appreciated, nomeningismus, trachea is midline. RESPIRATORY: No dyspnea. Clear to auscultation and equal bilaterally. No wheeze, no rhonchi. CARDIOVASCULAR: Tachycardic.No murmurs, rubs, gallops appreciated. GASTROINTESTINAL: Diffuse lower abdomen tenderness, normoactive bowel sounds, no masses, no peritonitis BACK: No midline tenderness, no CVA tenderness EXTREMITIES: Normal motion all extremities, no cyanosis, no edema. NEUROLOGIC: Alert and oriented, no acute motor or sensory deficits, no focal weakness, cranial nerves grossly intact. SKIN: No rash, no jaundice, no diaphoresis. PSYCH: Appropriate GCS: 15 ED Course: Times/Reassessments: Patient does appear much improved with fluids and pain medications/nausea medication. She is breathing comfortably she is in no distress. Agreeable to hospitalization Arsen Davies MD Past Med/Surg History Medical History (Updated 09/25/21 @ 03:50 by Chucho Machuca MD) Aftercare following right knee joint replacement surgery Anxiety Bilateral hip bursitis Chronic kidney disease, stage III (moderate) Fatty liver Frequent urinary tract infections History of diverticulitis 2013 History of frequent urinary tract infections no issues x summer 2018 Hyperlipemia Hypertension Kidney stone hx Obesity Osteoarthritis PMR (polymyalgia rheumatica) Ureteral stone Surgical History History of appendectomy History of bilateral oophorectomies History of cataract surgery R/L History of cholecystectomy History of colon resection [id number]/20132 diverticulitis History of colonoscopy History of hysterectomy S/P hysterectomy with oophorectomy Status post right knee replacement Family History Sister Rheumatoid arthritis Breast cancer Other Diabetes Family history of kidney disease Hypertension Denies family history of Ovarian cancer Prostate cancer Myocardial infarction Colorectal cancer Social History Smoking Status: Never smoker Second Hand Exposure: Yes; Hx Alcohol Use: No Hx Substance Use: No Preferred Language: Burkinan Communication Ability: Effective Visual Impairment: No Limitations Hearing Ability: Normal Senior Care Manager Required: No Beliefs That Will Affect Care: None marital status: Current Living Situation: Spouse current occupational status: retired Feels Safe at Home: Yes Childhood Exposure to Second-Hand Smoke: Yes Dental Care, Regularly: Yes Physical Activity Frequency: Daily Seatbelt Use: always Sunscreen Use: Yes Assistive Devices: None Allergies Allergies Allergy/AdvReac Type Severity Reaction Status Date / Time sulfamethoxazole Allergy Severe Nausea Verified 09/24/21 22:06 [From Bactrim] trimethoprim [From Bactrim] Allergy Severe Nausea Verified 09/24/21 22:06 ciprofloxacin Allergy Intermediate rash Verified 09/24/21 22:06 metronidazole Allergy Intermediate rash Verified 08/11/21 21:29 metoclopramide AdvReac Severe seizure-like Verified 09/24/21 22:06 activity prochlorperazine AdvReac Severe seizure-like Verified 09/24/21 22:06 activity indomethacin AdvReac Intermediate nausea Verified 09/24/21 22:06 Home Meds Home Medications Medication Instructions Recorded Confirmed cholecalciferol (vitamin D3) 50 2,000 unit PO HS 05/27/18 09/24/21 mcg (2,000 unit) tablet (Vitamin D3) conjugated estrogens 0.625 mg/gram 0.625 mg vaginal 2XWK 08/11/21 09/24/21 vaginal cream (Premarin) hydroxychloroquine 200 mg tablet 400 mg PO HS 08/11/21 09/24/21 Previous Rx's Medication Instructions Recorded lisinopril 20 mg tablet 20 mg PO HS #90 tabs 01/07/21 atorvastatin 10 mg tablet 10 mg PO HS #90 tabs 03/29/21 hydrocodone 5 mg-acetaminophen 325 1 tab PO DAILY PRN pain #30 tabs 08/27/21 mg tablet benzonatate 100 mg capsule 200 mg PO TID PRN cough 5 days #15 09/26/21 caps cefdinir 300 mg capsule 300 mg PO BID 5 days #10 caps 09/26/21 Results & Data (ED) Vital Signs Vital Signs - 24 hr 09/24/21 20:05 09/24/21 20:02 09/24/21 22:34 Temperature 37.5 C Temperature Source Temporal Artery Scan Pulse Rate 108 H Pulse Rate [Finger] 84 86 Pulse Rhythm Regular Pulse Rhythm [Finger] Regular Pulse Strength Normal Respiratory Rate 20 21 16 Respiratory Effort / Characteristics Non-Labored Spontaneous Respiratory Depth Normal Normal Blood Pressure 151/75 H Blood Pressure [Right Arm] 171/91 H 136/106 H Blood Pressure Mean 100 Blood Pressure Mean [Right Arm] 117 116 Blood Pressure Position Sitting Pulse Oximetry 93 93 96 Oxygen Delivery Method Room Air Room Air Room Air Sepsis Recent Fever Within 48 Hours No Sepsis New/Unexplained Change in Mental Status N/A Sepsis Action Taken by Nursing No Action Required Laboratory Data Result diagrams: 09/26/21 06:19 09/26/21 06:19 Lab Results 09/24/21 09/24/21 09/24/21 Range/Units 20:24 20:24 21:40 WBC 16.15 H (4.8-10.8) K/ul RBC 4.13 (3.93-5.22) M/uL Hgb 12.8 (12.0-16.0) g/dl Hct 36.3 (34.1-44.9) % MCV 87.9 (80.0-100.0) fL MCH 31.0 (25.0-34.0) pg MCHC 35.3 (32.0-36.0) g/dL RDW Std Deviation 39.5 (36.4-46.3) fL RDW Coeff of Dustin 12.2 (11.5-14.5) % Plt Count 209 (130-400) K/uL MPV 10.8 (9.4-12.3) fL Immature Gran % (Auto) 0.4 % Neut % (Auto) 83.7 % Lymph % (Auto) 7.4 % [place] % (Auto) 8.3 % Eos % (Auto) 0.0 % Baso % (Auto) 0.2 % Neut # (Auto) 13.52 H (1.4-6.5) K/uL Lymph # (Auto) 1.19 L (1.2-3.4) K/uL [place] # (Auto) 1.34 H (0.24-0.82) K/uL Eos # (Auto) 0.00 (0-0.50) K/uL Baso # (Auto) 0.04 (0-0.2) K/uL Immature Gran # (Auto) 0.06 H (0.00-0.02) K/uL Sodium 124 L (136-145) mmol/L Potassium 4.0 (3.5-5.1) mmol/L Chloride 92 L (98-107) mmol/L Carbon Dioxide 22 (21-32) mmol/L Anion Gap 10 (3-11) BUN 15 (6-23) mg/dl Creatinine 0.96 (0.6-1.2) mg/dl Est Cr Clr Drug Dosing 48.7 ml/min Est GFR ( Amer) 64.7 ml/min Est GFR (Non-Af Amer) 55.9 ml/min BUN/Creatinine Ratio 15.6 (10-20) Glucose 140 H (70-99(Fasting)) mg/dl Lactate (0.4-2.0) mmol/L Calcium 9.3 (8.5-10.1) mg/dl Magnesium 1.6 L (1.7-2.4) mg/dl Total Bilirubin 1.3 H (0.2-1.0) mg/dl Direct Bilirubin 0.3 H (0-0.2) mg/dl AST 17 (13-39) U/L ALT 14 (7-52) U/L Alkaline Phosphatase 69 (34-104) U/L Troponin I High Sens 14.3 H D (0-14) pg/ml Total Protein 6.9 (6.0-8.3) gm/dl Albumin 4.2 (3.4-5.0) gm/dl Lipase 7 L (11-82) U/L Urine Color Urine Appearance (Clear) Urine pH (4.5-7.5) Ur Specific [employer] [employer] (1.000-1.030) Urine Protein (Negative) Urine Glucose (UA) (Negative) Urine Ketones (Negative) Urine Blood (Negative) Urine Nitrite (Negative) Urine Bilirubin (Negative) Urine Urobilinogen (Negative) Ur Leukocyte Esterase (Negative) Urine WBC (Auto) (0-5) /hpf Urine RBC (Auto) (0-4) /hpf U Hyaline Cast (Auto) (0-5) /lpf U Epithel Cells (Auto) (0-5) /lpf Urine Bacteria (Auto) (Negative) SARS-CoV-2, RNA, NAAT NEGATIVE (NEGATIVE) 09/24/21 09/24/21 Range/Units 21:50 21:56 WBC (4.8-10.8) K/ul RBC (3.93-5.22) M/uL Hgb (12.0-16.0) g/dl Hct (34.1-44.9) % MCV (80.0-100.0) fL MCH (25.0-34.0) pg MCHC (32.0-36.0) g/dL RDW Std Deviation (36.4-46.3) fL RDW Coeff of Dustin (11.5-14.5) % Plt Count (130-400) K/uL MPV (9.4-12.3) fL Immature Gran % (Auto) % Neut % (Auto) % Lymph % (Auto) % [place] % (Auto) % Eos % (Auto) % Baso % (Auto) % Neut # (Auto) (1.4-6.5) K/uL Lymph # (Auto) (1.2-3.4) K/uL [place] # (Auto) (0.24-0.82) K/uL Eos # (Auto) (0-0.50) K/uL Baso # (Auto) (0-0.2) K/uL Immature Gran # (Auto) (0.00-0.02) K/uL Sodium (136-145) mmol/L Potassium (3.5-5.1) mmol/L Chloride (98-107) mmol/L Carbon Dioxide (21-32) mmol/L Anion Gap (3-11) BUN (6-23) mg/dl Creatinine (0.6-1.2) mg/dl Est Cr Clr Drug Dosing ml/min Est GFR ( Amer) ml/min Est GFR (Non-Af Amer) ml/min BUN/Creatinine Ratio (10-20) Glucose (70-99(Fasting)) mg/dl Lactate 1.7 (0.4-2.0) mmol/L Calcium (8.5-10.1) mg/dl Magnesium (1.7-2.4) mg/dl Total Bilirubin (0.2-1.0) mg/dl Direct Bilirubin (0-0.2) mg/dl AST (13-39) U/L ALT (7-52) U/L Alkaline Phosphatase (34-104) U/L Troponin I High Sens (0-14) pg/ml Total Protein (6.0-8.3) gm/dl Albumin (3.4-5.0) gm/dl Lipase (11-82) U/L Urine Color Dark Yellow Urine Appearance Cloudy A (Clear) Urine pH 7.0 (4.5-7.5) Ur Specific [place] [employer] 1.008 (1.000-1.030) Urine Protein 2+ H (Negative) Urine Glucose (UA) Negative (Negative) Urine Ketones Negative (Negative) Urine Blood 2+ H (Negative) Urine Nitrite Positive A (Negative) Urine Bilirubin Negative (Negative) Urine Urobilinogen Negative (Negative) Ur Leukocyte Esterase 3+ H (Negative) Urine WBC (Auto) >30 H (0-5) /hpf Urine RBC (Auto) >30 H (0-4) /hpf U Hyaline Cast (Auto) 1-5 (0-5) /lpf U Epithel Cells (Auto) 10-20 H (0-5) /lpf Urine Bacteria (Auto) 1+ H (Negative) SARS-CoV-2, RNA, NAAT (NEGATIVE) Administered Medications Atorvastatin Calcium (Atorvastatin 10 Mg Tab) 10 mg PO HS FRANCOIS Stop: 10/25/21 20:59 Last Admin: 09/25/21 20:53 Dose: 10 mg Documented By: GRAYSON Benzonatate (Benzonatate 100 Mg Capsule) 100 mg PO TID PRN PRN Reason: cough Stop: 10/26/21 08:59 Last Admin: 09/26/21 04:23 Dose: 100 mg Documented By: GRAYSON Hydroxychloroquine Sulfate (Hydroxychloroquine Sulfate 200 Mg Tab) 400 mg PO HS FRANCOIS Stop: 10/25/21 20:59 Last Admin: 09/25/21 20:54 Dose: 400 mg Documented By: GRAYSON Ceftriaxone Sodium 2,000 mg/ (Dextrose) 70 mls @ 100 mls/hr IV DAILY FRANCOIS; Protocol Stop: 10/05/21 08:59 Last Infusion: 09/26/21 09:05 Dose: 0 mls/hr Documented By: Admin: 09/26/21 08:11 Dose: 100 mls/hr Documented By: Infusion: 09/25/21 10:05 Dose: 0 mls/hr Documented By: Admin: 09/25/21 09:23 Dose: 100 mls/hr Documented By: JAMES Lisinopril (Lisinopril 20 Mg Tab) 20 mg PO HS FRANCOIS Stop: 10/25/21 20:59 Last Admin: 09/25/21 20:53 Dose: 20 mg Documented By: GRAYSON Vitamin D (Cholecalciferol 1,000 Units 25 Mcg Tab) 2,000 units PO HS FRANCOIS Stop: 10/25/21 20:59 Last Admin: 09/25/21 20:54 Dose: 2,000 units Documented By: GRAYSON Discontinued Medications Fentanyl Citrate (Fentanyl Citrate 100 Mcg/2 Ml Vial) 50 mcg IV NOW STA Stop: 09/24/21 20:19 Last Admin: 09/24/21 20:22 Dose: 50 mcg Documented By: KENYON Sodium Chloride (Nss 1000ml) 1,000 mls @ 999 mls/hr IV .[id number] ONE Stop: 09/24/21 21:18 Last Infusion: 09/24/21 22:46 Dose: 0 mls/hr Documented By: Admin: 09/24/21 20:23 Dose: 999 mls/hr Documented By: KENYON Cefepime HCl (Maxipime) 2,000 mg in 20 mls @ 5 mls/min IV NOW STA; Protocol Stop: 09/24/21 21:42 Last Admin: 09/24/21 22:00 Dose: 5 mls/min Documented By: KENYON Lactated Ringer's (Lr) 1,000 mls @ 80 mls/hr IV .[id number] FRANCOIS Stop: 10/24/21 23:44 Last Infusion: 09/26/21 08:20 Dose: 0 mls/hr Documented By: Admin: 09/26/21 04:23 Dose: 80 mls/hr Documented By: Infusion: 09/26/21 01:13 Dose: 80 mls/hr Documented By: Admin: 07/20/22 12:43 Dose: 80 mls/hr Documented By: Infusion: 09/25/21 12:43 Dose: 80 mls/hr Documented By: Admin: 09/25/21 01:17 Dose: 80 mls/hr Documented By: ADAM Magnesium Sulfate/Dextrose (Magnesium Sulfate / D5w) 1 gm in 100 mls @ 50 mls/hr IV Q2H FRANCOIS Stop: 09/25/21 04:29 Last Infusion: 09/25/21 03:24 Dose: 0 mls/hr Documented By: Admin: 09/25/21 01:19 Dose: 50 mls/hr Documented By: Infusion: 09/25/21 01:18 Dose: 0 mls/hr Documented By: Admin: 09/25/21 00:24 Dose: 50 mls/hr Documented By: ADAM Ondansetron HCl (Ondansetron Inj 2 Mg/Ml 2 Ml Vial) 4 mg IV NOW STA Stop: 09/24/21 20:19 Last Admin: 09/24/21 20:22 Dose: 4 mg Documented By: KENYON Ondansetron HCl (Ondansetron Inj 2 Mg/Ml 2 Ml Vial) 4 mg IV NOW STA Stop: 09/24/21 22:35 Last Admin: 09/24/21 22:41 Dose: 4 mg Documented By: KV Imaging Data Radiologist's Impression: Abdomen/Pelvis CT 09/24/21 20:[address] WITHOUT CONTRAST CT DOSE: 614.84 mGy.cm HISTORY: lower abdominl pain, left flank, vomiting TECHNIQUE: Multiaxial CT images of the abdomen and pelvis were performed without contrast. A dose lowering technique was utilized adhering to the principles of ALARA. COMPARISON STUDY: Abdomen and pelvis CT 08/11/2021. FINDINGS: The lung bases are clear. No pneumoperitoneum. No pneumatosis. Moderate to severe osteoarthritis within the bilateral hips. There is also moderate degenerative disc disease within the lumbar spine. No acute fractures identified. There is a small hiatus hernia. There are small fat-containing bilateral Bochdalek hernias. Mild hepatic steatosis. The gallbladder is surgically absent. There is 7 cm hypodense lesion within the right hepatic dome. This remains unchanged and likely represent a cyst. The spleen, adrenal glands, and kidneys are unremarkable. No renal or ureteral stones. No hydronephrosis. Mild urothelial thickening with mild periureteral edema within the mid to distal bilateral ureters. There is also moderate bladder wall thickening with adjacent fat stranding. These likely represent a cystitis with an associated bilateral pyelitis. The uterus is surgically absent. No retroperitoneal lymphadenopathy. Normal caliber abdominal aorta. There are few calcifications within the pancreatic tail, unchanged. This likely represents a chronic pancreatitis. No CT evidence for acute pancreatitis. A few subcentimeter cystic foci within the pancreas remains stable and favor small side branch intraductal papillary mucinous neoplasms. Suboptimal evaluation for bowel pathology due to the lack of intravenous and oral contrast. However, there is no definite bowel wall thickening or obstruction. Rectosigmoid anastomosis again noted consistent with a prior partial colonic resection. Colonic diverticulosis. No evidence for acute diverticulitis. The appendix is not identified and reportedly surgically absent. IMPRESSION: 1. Moderate bladder wall thickening with adjacent fat stranding consistent with a cystitis. There is also urothelial thickening within the mid to distal ureters with mild periureteral edema. This likely represents an associated pyelitis. No perinephric fat stranding identified. 2. No definite bowel wall thickening or obstruction. 3. Colonic diverticulosis. No evidence for acute diverticulitis. 4. Postoperative changes as described above. ACT 112: Negative or not required by law. Electronically signed by: George Castaneda M.D. 09/24/2021 9:22 PM Discharge Plan Visit Data Chief Complaint: Vomiting Stated Complaint: VOMITING ED Provider: Arsen Davies Discharge Problem: Acute pyelonephritis, Nausea and vomiting, Acute hyponatremia Patient Disposition: Admitted As Inpatient Discharge Instructions Interventions: ED Discharge Assessment Last Done: 09/25/21 01:36 : Nausea and vomiting Qualifiers: Vomiting type: unspecified Qualified Code(s): R11.2 - Nausea with vomiting, unspecified
[2021-09-24 20:54] LABS: Albumin Level 4.2 gm/dl (3.4-5.0); BUN Creatinine Ratio 15.6 (10-20); Bilirubin Direct 0.3 mg/dl (0-0.2); Bilirubin,Total 1.3 mg/dl (0.2-1.0); Calcium 9.3 mg/dl (8.5-10.1); Creatinine Clr Calc Pharmacy 48.7 ml/min; Est GFR (African American) 64.7 ml/min; Est GFR (Non-African American) 55.9 ml/min; Magnesium 1.6 mg/dl (1.7-2.4); Total Protein 6.9 gm/dl (6.0-8.3)
[2021-09-24 21:00] LABS: Troponin I High Sensitivity 14.3 pg/ml (0-14)
--- NOTE | 2021-09-24 21:25 | CT Scan Report ---
ABDOMEN AND PELVIS CT WITHOUT CONTRAST CT DOSE: 614.84 mGy.cm HISTORY: lower abdominl pain, left flank, vomiting TECHNIQUE: Multiaxial CT images of the abdomen and pelvis were performed without contrast. A dose lo wering technique was utilized adhering to the principles of ALARA. COMPARISON STUDY: Abdomen and pelvis CT 08/11/2021. FINDINGS: The lung bases are clear. No pneumoperitoneum. No pneumatosis. Moderate to severe osteoarth ritis within the bilateral hips. There is also moderate degenerative disc disease within the lumbar s pine. No acute fractures identified. There is a small hiatus hernia. There are small fat-containing b ilateral Bochdalek hernias. Mild hepatic steatosis. The gallbladder is surgically absent. There is 7 cm hypodense lesion within the right hepatic dome. This remains unchanged and likely represent a cyst . The spleen, adrenal glands, and kidneys are unremarkable. No renal or ureteral stones. No hydroneph rosis. Mild urothelial thickening with mild periureteral edema within the mid to distal bilateral ure ters. There is also moderate bladder wall thickening with adjacent fat stranding. These likely repres ent a cystitis with an associated bilateral pyelitis. The uterus is surgically absent. No retroperito curt lymphadenopathy. Normal caliber abdominal aorta. There are few calcifications within the pancrea tic tail, unchanged. This likely represents a chronic pancreatitis. No CT evidence for acute pancreat itis. A few subcentimeter cystic foci within the pancreas remains stable and favor small side branch intraductal papillary mucinous neoplasms. Suboptimal evaluation for bowel pathology due to the lack o f intravenous and oral contrast. However, there is no definite bowel wall thickening or obstruction. Rectosigmoid anastomosis again noted consistent with a prior partial colonic resection. Colonic diver ticulosis. No evidence for acute diverticulitis. The appendix is not identified and reportedly surgic ally absent. IMPRESSION: 1. Moderate bladder wall thickening with adjacent fat stranding consistent with a cystitis. There is also urothelial thickening within the mid to distal ureters with mild periureteral edema. This likely represents an associated pyelitis. No perinephric fat stranding identified. 2. No definite bowel wall thickening or obstruction. 3. Colonic diverticulosis. No evidence for acute diverticulitis. 4. Postoperative changes as described above. ACT 112: Negative or not required by law. Electronically signed by: George Castaneda M.D. 09/24/2021 9:22 PM
[2021-09-24] MEDS ORDERED: CEFEPIME 2,000 MG/20 ML VIAL IV STA (21:39)
[2021-09-24 22:05] LABS: Appearance Urine Cloudy (Clear); Bacteria Urine Automated 1+ (Negative); Bilirubin Urine Negative (Negative); Blood Urine 2+ (Negative); Color Urine Dark Yellow; Glucose Urine UA Negative (Negative); Ketones Urine Negative (Negative); Leukocyte Esterase Urine 3+ (Negative); Nitrite Urine Positive (Negative); Protein Urine 2+ (Negative); RBC Urine Automated >30 /hpf (0-4); Specific Gravity Urine 1.008 (1.000-1.030); Urobilinogen Urine Negative (Negative); WBC Urine Automated >30 /hpf (0-5)
--- NOTE | 2021-09-24 23:21 | History & Physical Report ---
Date of Service September 24, 2021 Assessment & Plan (1) Acute pyelonephritis: Plan: Acute pyelonephritis/cystitis/pyelitis- Multiple infections in the past have been pansensitive E. coli Ceftriaxone 2 g IV daily Follow urine cultures and sensitivity (2) Cystitis: Plan: See above (3) PMR (polymyalgia rheumatica): Plan: Continue hydroxychloroquine 400 mg at bedtime Continue hydrocodone/acetaminophen daily as needed moderate pain (4) Nausea and vomiting: Plan: May be an early sign of sepsis, placing on IV antibiotics May be secondary to hyponatremia, placing on IV fluids Symptomatic treatment with Zofran (5) Acute hyponatremia: Plan: Hyponatremia/hypomagnesemia- Sodium 124, magnesium 1.6 on admission Magnesium sulfate 2 g IV LR at 80 mils per hour Treat nausea and vomiting Follow laboratory serially (6) Hypertension: Plan: Continue lisinopril 20 mg daily (7) Dyslipidemia: Plan: Continue atorvastatin 10 mg at bedtime History of Present Illness Chief Complaint: The patient reports persistence of urinary frequency, urgency and discomfort despite a 6-day course of Macrobid in the outpatient setting Primary Care Provider: Marcos Sarabia MD The patient is a an 81-year-old female with a past medical history including recurrent urinary tract infections, vitamin B12 deficiency, vasovagal syncope, right TKA, bilateral hip bursitis, diverticular colonic abscess, IPMN, solitary pulmonary nodule, PAD, hypertension, hepatic steatosis, GERD and dyslipidemia. She reports that she started a course of Macrobid that was provided by her physician whenever she developed a urinary tract infection, completed a 6-day course of this, and then remained off antibiotics for couple days to be able to get a urine culture and sensitivity 2 days ago. She presents to the emergency department today due to persistence of urinary symptoms, in addition, developed significant nausea and vomiting over the past 24 hours. She denies any recent travels or sick exposures. She denies any change in usual dietary intake. Allergies Allergy/AdvReac Type Severity Reaction Status Date / Time sulfamethoxazole Allergy Severe Nausea Verified 09/24/21 22:06 [From Bactrim] trimethoprim [From Bactrim] Allergy Severe Nausea Verified 09/24/21 22:06 ciprofloxacin Allergy Intermediate rash Verified 09/24/21 22:06 metronidazole Allergy Intermediate rash Verified 08/11/21 21:29 metoclopramide AdvReac Severe seizure-like Verified 09/24/21 22:06 activity prochlorperazine AdvReac Severe seizure-like Verified 09/24/21 22:06 activity indomethacin AdvReac Intermediate nausea Verified 09/24/21 22:06 Home Medications Medication Instructions Recorded Confirmed Type cholecalciferol (vitamin D3) 50 2,000 unit PO HS 05/27/18 09/24/21 History mcg (2,000 unit) tablet (Vitamin D3) lisinopril 20 mg tablet 20 mg PO HS #90 tabs 01/07/21 09/24/21 Rx atorvastatin 10 mg tablet 10 mg PO HS #90 tabs 03/29/21 09/24/21 Rx conjugated estrogens 0.625 mg/gram 0.625 mg vaginal 2XWK 08/11/21 09/24/21 History vaginal cream (Premarin) hydroxychloroquine 200 mg tablet 400 mg PO HS 08/11/21 09/24/21 History hydrocodone 5 mg-acetaminophen 325 1 tab PO DAILY PRN pain #30 tabs 08/27/21 09/24/21 Rx mg tablet Past Med/Surg History Medical History (Updated 09/25/21 @ 03:50 by Chucho Machuca MD) Aftercare following right knee joint replacement surgery Anxiety Bilateral hip bursitis Chronic kidney disease, stage III (moderate) Fatty liver Frequent urinary tract infections History of diverticulitis 2013 History of frequent urinary tract infections no issues x summer 2018 Hyperlipemia Hypertension Kidney stone hx Obesity Osteoarthritis PMR (polymyalgia rheumatica) Ureteral stone Surgical History History of appendectomy History of bilateral oophorectomies History of cataract surgery R/L History of cholecystectomy History of colon resection 05/2013 diverticulitis History of colonoscopy History of hysterectomy S/P hysterectomy with oophorectomy Status post right knee replacement Family History Sister Rheumatoid arthritis Breast cancer Other Diabetes Family history of kidney disease Hypertension Denies family history of Ovarian cancer Prostate cancer Myocardial infarction Colorectal cancer Social History Smoking Status: Never smoker Second Hand Exposure: Yes; Hx Alcohol Use: Yes Hx Substance Use: No Preferred Language: Swiss Communication Ability: Effective Visual Impairment: No Limitations Hearing Ability: Normal [place] Fancier Required: No Beliefs That Will Affect Care: None marital status: Current Living Situation: Spouse current occupational status: retired Feels Safe at Home: Yes Childhood Exposure to Second-Hand Smoke: Yes Dental Care, Regularly: Yes Physical Activity Frequency: Daily Seatbelt Use: always Sunscreen Use: Yes Assistive Devices: Walker Review of Systems Review of Systems: The patient denies chest pain, palpitations, shortness of breath, dyspnea on exertion, cough, lower extremity swelling, sore throat, fevers, chills, sweats, diarrhea , constipation, abdominal pain, pelvic pain, blood in urine or stool, lightheadedness, dizziness, headache, memory loss, loss of consciousness, rash, abnormal bruising or bleeding, imbalance, focal weakness, numbness or tingling in arms or legs, generalized arthralgias or myalgias, back or neck pain, or night sweats. The review of systems is otherwise negative other than for that already noted above, and at least 10 systems have been reviewed. Physical Exam Physical Exam: The patient is awake, alert and oriented 3, well developed and well nourished, normocephalic and atraumatic, lying in bed and in no acute distress. HEENT--PERRL, EOMI, mucous membranes and oropharynx dry. Neck--supple. No JVD. No bruits. Thyroid normal, trachea midline, no adenopathy. Heart--normal S1 and S2. No murmurs, rubs or gallops. Lungs--clear bilaterally, no respiratory distress, no accessory muscle use. Abdomen--normal bowel sounds and soft. Nontender. Nondistended. Extremities--no cyanosis or clubbing. No edema. Dermatologic--normal skin turgor, normal color, no abnormal lymph nodes, no rash. Neurologic--cranial nerves II through XII grossly intact. Rheumatologic--normal range of motion. Psychiatric--normal affect. Results & Data Results & Data ([facility]) Vital Signs (Past 12 Hours) Vital Signs Temp Pulse Pulse Resp BP BP Pulse Ox 09/24/21 22:34 86 16 136/106 H 96 09/24/21 20:02 84 21 171/91 H 93 09/24/21 20:05 37.5 C 108 H 20 151/75 H 93 O2 Del Method 09/24/21 22:34 Room Air 09/24/21 20:02 Room Air 09/24/21 20:05 Room Air Laboratory Results Laboratory Results WBC 12.80 K/ul (4.8-10.8) H 09/25/21 02:13 RBC 3.50 M/uL (3.93-5.22) L 09/25/21 02:13 Hgb 11.1 g/dl (12.0-16.0) L 09/25/21 02:13 Hct 31.1 % (34.1-44.9) L 09/25/21 02:13 MCV 88.9 fL (80.0-100.0) 09/25/21 02:13 MCH 31.7 pg (25.0-34.0) 09/25/21 02:13 MCHC 35.7 g/dL (32.0-36.0) 09/25/21 02:13 RDW Std Deviation 39.8 fL (36.4-46.3) 09/25/21 02:13 RDW Coeff of Dustin 12.2 % (11.5-14.5) 09/25/21 02:13 Plt Count 164 K/uL (130-400) 09/25/21 02:13 MPV 10.5 fL (9.4-12.3) 09/25/21 02:13 Immature Gran % (Auto) 0.4 % 09/25/21 02:13 Neut % (Auto) 80.5 % 09/25/21 02:13 Lymph % (Auto) 8.4 % 09/25/21 02:13 [place] % (Auto) 10.4 % 09/25/21 02:13 Eos % (Auto) 0.1 % 09/25/21 02:13 Baso % (Auto) 0.2 % 09/25/21 02:13 Neut # (Auto) 10.31 K/uL (1.4-6.5) H 09/25/21 02:13 Lymph # (Auto) 1.08 K/uL (1.2-3.4) L 09/25/21 02:13 [place] # (Auto) 1.33 K/uL (0.24-0.82) H 09/25/21 02:13 Eos # (Auto) 0.01 K/uL (0-0.50) 09/25/21 02:13 Baso # (Auto) 0.02 K/uL (0-0.2) 09/25/21 02:13 Immature Gran # (Auto) 0.05 K/uL (0.00-0.02) H 09/25/21 02:13 Sodium 126 mmol/L (136-145) L 09/25/21 02:13 Potassium 4.3 mmol/L (3.5-5.1) 09/25/21 02:13 Chloride 96 mmol/L (98-107) L 09/25/21 02:13 Carbon Dioxide 24 mmol/L (21-32) 09/25/21 02:13 Anion Gap 6 (3-11) 09/25/21 02:13 BUN 14 mg/dl (6-23) 09/25/21 02:13 Creatinine 0.94 mg/dl (0.6-1.2) 09/25/21 02:13 Est Cr Clr Drug Dosing 49.7 ml/min 09/25/21 02:13 Est GFR ( Amer) 66.4 ml/min 09/25/21 02:13 Est GFR (Non-Af Amer) 57.3 ml/min 09/25/21 02:13 BUN/Creatinine Ratio 14.9 (10-20) 09/25/21 02:13 Glucose 146 mg/dl (70-99(Fasting)) H 09/25/21 02:13 Lactate 1.7 mmol/L (0.4-2.0) 09/24/21 21:56 Calcium 8.6 mg/dl (8.5-10.1) 09/25/21 02:13 Phosphorus 3.1 mg/dl (2.5-4.9) 09/25/21 02:13 Magnesium 2.6 mg/dl (1.7-2.4) H 09/25/21 02:13 Total Bilirubin 1.3 mg/dl (0.2-1.0) H 09/24/21 20:24 Direct Bilirubin 0.3 mg/dl (0-0.2) H 09/24/21 20:24 AST 17 U/L (13-39) 09/24/21 20:24 ALT 14 U/L (7-52) 09/24/21 20:24 Alkaline Phosphatase 69 U/L (34-104) 09/24/21 20:24 Troponin I High Sens 17.9 pg/ml (0-14) H 09/25/21 02:13 Total Protein 6.9 gm/dl (6.0-8.3) 09/24/21 20:24 Albumin 3.6 gm/dl (3.4-5.0) 09/25/21 02:13 Lipase 7 U/L (11-82) L 09/24/21 20:24 Urine Color Dark Yellow 09/24/21 21:50 Urine Appearance Cloudy (Clear) A 09/24/21 21:50 Urine pH 7.0 (4.5-7.5) 09/24/21 21:50 Ur Specific [place] 1.008 (1.000-1.030) 09/24/21 21:50 Urine Protein 2+ (Negative) H 09/24/21 21:50 Urine Glucose (UA) Negative (Negative) 09/24/21 21:50 Urine Ketones Negative (Negative) 09/24/21 21:50 Urine Blood 2+ (Negative) H 09/24/21 21:50 Urine Nitrite Positive (Negative) A 09/24/21 21:50 Urine Bilirubin Negative (Negative) 09/24/21 21:50 Urine Urobilinogen Negative (Negative) 09/24/21 21:50 Ur Leukocyte Esterase 3+ (Negative) H 09/24/21 21:50 Urine WBC (Auto) >30 /hpf (0-5) H 09/24/21 21:50 Urine RBC (Auto) >30 /hpf (0-4) H 09/24/21 21:50 U Hyaline Cast (Auto) 1-5 /lpf (0-5) 09/24/21 21:50 U Epithel Cells (Auto) 10-20 /lpf (0-5) H 09/24/21 21:50 Urine Bacteria (Auto) 1+ (Negative) H 09/24/21 21:50 SARS-CoV-2, RNA, NAAT NEGATIVE (NEGATIVE) 09/24/21 21:40 Impressions Abdomen/Pelvis CT 09/24/21 20:[address] WITHOUT CONTRAST CT DOSE: 614.84 mGy.cm HISTORY: lower abdominl pain, left flank, vomiting TECHNIQUE: Multiaxial CT images of the abdomen and pelvis were performed without contrast. A dose lowering technique was utilized adhering to the principles of ALARA. COMPARISON STUDY: Abdomen and pelvis CT 08/11/2021. FINDINGS: The lung bases are clear. No pneumoperitoneum. No pneumatosis. Moderate to severe osteoarthritis within the bilateral hips. There is also moderate degenerative disc disease within the lumbar spine. No acute fractures identified. There is a small hiatus hernia. There are small fat-containing bilateral Bochdalek hernias. Mild hepatic steatosis. The gallbladder is surgically absent. There is 7 cm hypodense lesion within the right hepatic dome. This remains unchanged and likely represent a cyst. The spleen, adrenal glands, and kidneys are unremarkable. No renal or ureteral stones. No hydronephrosis. Mild urothelial thickening with mild periureteral edema within the mid to distal bilateral ureters. There is also moderate bladder wall thickening with adjacent fat stranding. These likely represent a cystitis with an associated bilateral pyelitis. The uterus is surgically absent. No retroperitoneal lymphadenopathy. Normal caliber abdominal aorta. There are few calcifications within the pancreatic tail, unchanged. This likely represents a chronic pancreatitis. No CT evidence for acute pancreatitis. A few subcentimeter cystic foci within the pancreas remains stable and favor small side branch intraductal papillary mucinous neoplasms. Suboptimal evaluation for bowel pathology due to the lack of intravenous and oral contrast. However, there is no definite bowel wall thickening or obstruction. Rectosigmoid anastomosis again noted consistent with a prior partial colonic resection. Colonic diverticulosis. No evidence for acute diverticulitis. The appendix is not identified and reportedly surgically absent. IMPRESSION: 1. Moderate bladder wall thickening with adjacent fat stranding consistent with a cystitis. There is also urothelial thickening within the mid to distal ureters with mild periureteral edema. This likely represents an associated pyelitis. No perinephric fat stranding identified. 2. No definite bowel wall thickening or obstruction. 3. Colonic diverticulosis. No evidence for acute diverticulitis. 4. Postoperative changes as described above. ACT 112: Negative or not required by law. Electronically signed by: George Castaneda M.D. 09/24/2021 9:22 PM Code Status & VTE Plan Code Status Full code VTE Prophylaxis Plan VTE Prophylaxis will be ordered: Yes PG Care Time/CCT Total # of Minutes Spent Total Time Spent with Patient: Total time spent is greater than 50% in coordination of care (as documented) at patient's floor/unit and/or counseling patient: Coding Level of Care Code 92145 Initial Inpt Care Lvl 3 Diagnoses Acute pyelonephritis N10 Cystitis N30.90 PMR (polymyalgia rheumatica) M35.3 Nausea and vomiting R11.2 Vomiting type: unspecified Acute hyponatremia E87.1 Hypertension I10 Dyslipidemia E78.5 (1) Nausea and vomiting Vomiting type: unspecified Qualified Code(s): R11.2 - Nausea with vomiting, unspecified
[2021-09-25] MEDS: MAGNESIUM SULFATE / D5W 1 GM/100 ML BAG IV SCH ×2 (00:24→01:19)
[2021-09-25] MEDS: LACTATED RINGER'S 1,000 ML IV SCH ×2 (01:17→12:43)
[2021-09-25] MEDS ORDERED: ACETAMINOPHEN 325 MG TAB PO PRN (01:40)
[2021-09-25] MEDS ORDERED: HYDROCODONE/ACETAMOPHEN 5/325MG TAB PO PRN (01:40)
[2021-09-25] MEDS ORDERED: ONDANSETRON INJ 2 MG/ML 2 ML VIAL IV PRN (01:40)
[2021-09-25 02:24] LABS: Basophils # (auto) 0.02 K/uL (0-0.2); Basophils % (auto) 0.2 %; Eosinophils # (auto) 0.01 K/uL (0-0.50); Eosinophils % (auto) 0.1 %; Hematocrit (blood only) 31.1 % (34.1-44.9); Hemoglobin 11.1 g/dl (12.0-16.0); Immature Granulocytes # (auto) 0.05 K/uL (0.00-0.02); Immature Granulocytes % (auto) 0.4 %; Lymphocytes # (auto) 1.08 K/uL (1.2-3.4); Lymphocytes % (auto) 8.4 %; Mean Corpuscular Hemoglobin 31.7 pg (25.0-34.0); Mean Corpuscular Hgb Conc 35.7 g/dL (32.0-36.0); Mean Corpuscular Volume 88.9 fL (80.0-100.0); Mean Platelet Volume 10.5 fL (9.4-12.3); Monocytes # (auto) 1.33 K/uL (0.24-0.82); Monocytes % (auto) 10.4 %; Neutrophils # (auto) 10.31 K/uL (1.4-6.5); Neutrophils % (auto) 80.5 %; Platelet Count 164 K/uL (130-400); RDW Coefficient of Variation 12.2 % (11.5-14.5); RDW Standard Deviation 39.8 fL (36.4-46.3)
[2021-09-25 02:44] LABS: Albumin Level 3.6 gm/dl (3.4-5.0); BUN Creatinine Ratio 14.9 (10-20); Calcium 8.6 mg/dl (8.5-10.1); Creatinine Clr Calc Pharmacy 49.7 ml/min; Est GFR (African American) 66.4 ml/min; Est GFR (Non-African American) 57.3 ml/min; Magnesium 2.6 mg/dl (1.7-2.4); Phosphorus 3.1 mg/dl (2.5-4.9); Potassium 4.3 mmol/L (3.5-5.1)
--- NOTE | 2021-09-25 08:17 | Hospitalist Progress Note ---
Date of Service September 25, 2021 Assessment & Plan (1) Cystitis: Plan: 81-year-old female with a past medical history including recurrent urinary tract infections, vitamin B12 deficiency, vasovagal syncope, right TKA, bilateral hip bursitis, diverticular colonic abscess, IPMN, solitary pulmonary nodule, PAD, hypertension, hepatic steatosis, GERD and dyslipidemia, presents to the emergency department today due to persistence of urinary symptoms, in addition, developed significant nausea and vomiting over the past 24 hours 1) Acute Cystitis Acute pyelonephritis/cystitis/pyelitis- Multiple infections in the past have been pansensitive E. coli Ceftriaxone 2 g IV daily Follow urine cultures and sensitivity WBC downtrending last 12.8 (3) PMR (polymyalgia rheumatica): Continue hydroxychloroquine 400 mg at bedtime Continue hydrocodone/acetaminophen daily as needed moderate pain (4) Nausea and vomiting: May be an early sign of sepsis, placing on IV antibiotics May be secondary to hyponatremia, placing on IV fluids Symptomatic treatment with Zofran (5) Acute hyponatremia: Hyponatremia/hypomagnesemia- Sodium 124, magnesium 1.6 on admission Magnesium sulfate 2 g IV LR at 80 mils per hour Treat nausea and vomiting Follow laboratory serially, last 126 (6) Hypertension: Continue lisinopril 20 mg daily (7) Dyslipidemia: Continue atorvastatin 10 mg at bedtime FENa: full liquid, LR 80/h Code Status: full DVT PPX: SCDs Case Management: pending Dispo: med/surg Kisha Jimenes Do PGY 2, FCM (2) PMR (polymyalgia rheumatica): (3) Nausea and vomiting: (4) Frequent urinary tract infections: (5) Hypertension: (6) Dyslipidemia: Admission and Anticipated Discharge Date Admission Date: September 24, 2021 Supervising Physician Co-Signing Physician Notes I personally examined the patient and verified all small points of history and exam, discussed case, and agree with decision making with Dr Jalil brown. discussed case and updated on plans to the best of my ability vitals noted nad heent nc at mmm breathing unlabored no accessory muscles good effort pyelonephritis, sepsis - probably failed due to macrobid and possibly not GFR to activate? vs renal parenchymal involvement that would not have been cleared by macrobid? either way improving - wait on cultures into tomorrow then home on PO abx (tailored if Cx show findings, cefdinir if based on prior cultures and response to rocpehin) otherwise as above Subjective Patient seen at bedside calm comfortable cooperative, she understands she is here for a UTI cystitis. States her fever nausea vomitting are much improved by today, her right back pain has improved, she still has urinary urgency. Patient understands we are awaiting urine cultures before we can switch to PO abx. No acute concerns at this time. Review of Systems Review of Systems: Negative fever chills Negative headache dizziness Negative chest pain palpitations SOB Negative nausea vomitting diarrhea constipation Negative numbness tingling rash swelling Physical Exam Constitutional: WD/WN, vitals as above Eyes: PERRL, conjunctivae normal, anicteric sclerae ENMT: external ear and nose normal, oropharynx normal Neck: trachea midline, no thyromegaly Respiratory: normal respiratory effort, lungs clear to auscultation Cardiovascular: RRR, no murmur, no edema Chest (Breasts): Chest: normal inspection of chest Gastrointestinal (Abdomen): normal bowel sounds, soft, nontender, no hepatosplenomegaly Skin: no rashes, warm and dry Results & Data Results & Data ([facility]) Vital Signs (Past 12 Hours) Vital Signs Temp Pulse Resp BP Pulse Ox O2 Del Method 09/25/21 04:40 37.1 C 74 20 143/95 H 97 Room Air 09/25/21 04:17 66 17 136/51 L 95 Room Air 09/25/21 01:35 73 16 148/73 H 94 Room Air 09/25/21 00:34 88 16 141/71 H 100 Room Air 09/24/21 22:34 86 16 136/106 H 96 Room Air Diagnostic Findings Laboratory Results WBC 12.80 K/ul (4.8-10.8) H 09/25/21 02:13 RBC 3.50 M/uL (3.93-5.22) L 09/25/21 02:13 Hgb 11.1 g/dl (12.0-16.0) L 09/25/21 02:13 Hct 31.1 % (34.1-44.9) L 09/25/21 02:13 MCV 88.9 fL (80.0-100.0) 09/25/21 02:13 MCH 31.7 pg (25.0-34.0) 09/25/21 02:13 MCHC 35.7 g/dL (32.0-36.0) 09/25/21 02:13 RDW Std Deviation 39.8 fL (36.4-46.3) 09/25/21 02:13 RDW Coeff of Dustin 12.2 % (11.5-14.5) 09/25/21 02:13 Plt Count 164 K/uL (130-400) 09/25/21 02:13 MPV 10.5 fL (9.4-12.3) 09/25/21 02:13 Immature Gran % (Auto) 0.4 % 09/25/21 02:13 Neut % (Auto) 80.5 % 09/25/21 02:13 Lymph % (Auto) 8.4 % 09/25/21 02:13 [place] % (Auto) 10.4 % 09/25/21 02:13 Eos % (Auto) 0.1 % 09/25/21 02:13 Baso % (Auto) 0.2 % 09/25/21 02:13 Neut # (Auto) 10.31 K/uL (1.4-6.5) H 09/25/21 02:13 Lymph # (Auto) 1.08 K/uL (1.2-3.4) L 09/25/21 02:13 [place] # (Auto) 1.33 K/uL (0.24-0.82) H 09/25/21 02:13 Eos # (Auto) 0.01 K/uL (0-0.50) 09/25/21 02:13 Baso # (Auto) 0.02 K/uL (0-0.2) 09/25/21 02:13 Immature Gran # (Auto) 0.05 K/uL (0.00-0.02) H 09/25/21 02:13 Sodium 126 mmol/L (136-145) L 09/25/21 02:13 Potassium 4.3 mmol/L (3.5-5.1) 09/25/21 02:13 Chloride 96 mmol/L (98-107) L 09/25/21 02:13 Carbon Dioxide 24 mmol/L (21-32) 09/25/21 02:13 Anion Gap 6 (3-11) 09/25/21 02:13 BUN 14 mg/dl (6-23) 09/25/21 02:13 Creatinine 0.94 mg/dl (0.6-1.2) 09/25/21 02:13 Est Cr Clr Drug Dosing 49.7 ml/min 09/25/21 02:13 Est GFR ( Amer) 66.4 ml/min 09/25/21 02:13 Est GFR (Non-Af Amer) 57.3 ml/min 09/25/21 02:13 BUN/Creatinine Ratio 14.9 (10-20) 09/25/21 02:13 Glucose 146 mg/dl (70-99(Fasting)) H 09/25/21 02:13 Lactate 1.7 mmol/L (0.4-2.0) 09/24/21 21:56 Calcium 8.6 mg/dl (8.5-10.1) 09/25/21 02:13 Phosphorus 3.1 mg/dl (2.5-4.9) 09/25/21 02:13 Magnesium 2.6 mg/dl (1.7-2.4) H 09/25/21 02:13 Total Bilirubin 1.3 mg/dl (0.2-1.0) H 09/24/21 20:24 Direct Bilirubin 0.3 mg/dl (0-0.2) H 09/24/21 20:24 AST 17 U/L (13-39) 09/24/21 20:24 ALT 14 U/L (7-52) 09/24/21 20:24 Alkaline Phosphatase 69 U/L (34-104) 09/24/21 20:24 Troponin I High Sens 11.4 pg/ml (0-14) D 09/25/21 13:14 Total Protein 6.9 gm/dl (6.0-8.3) 09/24/21 20:24 Albumin 3.6 gm/dl (3.4-5.0) 09/25/21 02:13 Lipase 7 U/L (11-82) L 09/24/21 20:24 Urine Color Dark Yellow 09/24/21 21:50 Urine Appearance Cloudy (Clear) A 09/24/21 21:50 Urine pH 7.0 (4.5-7.5) 09/24/21 21:50 Ur Specific [place] 1.008 (1.000-1.030) 09/24/21 21:50 Urine Protein 2+ (Negative) H 09/24/21 21:50 Urine Glucose (UA) Negative (Negative) 09/24/21 21:50 Urine Ketones Negative (Negative) 09/24/21 21:50 Urine Blood 2+ (Negative) H 09/24/21 21:50 Urine Nitrite Positive (Negative) A 09/24/21 21:50 Urine Bilirubin Negative (Negative) 09/24/21 21:50 Urine Urobilinogen Negative (Negative) 09/24/21 21:50 Ur Leukocyte Esterase 3+ (Negative) H 09/24/21 21:50 Urine WBC (Auto) >30 /hpf (0-5) H 09/24/21 21:50 Urine RBC (Auto) >30 /hpf (0-4) H 09/24/21 21:50 U Hyaline Cast (Auto) 1-5 /lpf (0-5) 09/24/21 21:50 U Epithel Cells (Auto) 10-20 /lpf (0-5) H 09/24/21 21:50 Urine Bacteria (Auto) 1+ (Negative) H 09/24/21 21:50 Nasal Screen MRSA (PCR) Negative (Negative) 09/25/21 Unknown SARS-CoV-2, RNA, NAAT NEGATIVE (NEGATIVE) 09/24/21 21:40 Impressions Abdomen/Pelvis CT 09/24/21 20:[address] WITHOUT CONTRAST CT DOSE: 614.84 mGy.cm HISTORY: lower abdominl pain, left flank, vomiting TECHNIQUE: Multiaxial CT images of the abdomen and pelvis were performed without contrast. A dose lowering technique was utilized adhering to the principles of ALARA. COMPARISON STUDY: Abdomen and pelvis CT 08/11/2021. FINDINGS: The lung bases are clear. No pneumoperitoneum. No pneumatosis. Moderate to severe osteoarthritis within the bilateral hips. There is also moderate degenerative disc disease within the lumbar spine. No acute fractures identified. There is a small hiatus hernia. There are small fat-containing bilateral Bochdalek hernias. Mild hepatic steatosis. The gallbladder is surgically absent. There is 7 cm hypodense lesion within the right hepatic dome. This remains unchanged and likely represent a cyst. The spleen, adrenal glands, and kidneys are unremarkable. No renal or ureteral stones. No hydronephrosis. Mild urothelial thickening with mild periureteral edema within the mid to distal bilateral ureters. There is also moderate bladder wall thickening with adjacent fat stranding. These likely represent a cystitis with an associated bilateral pyelitis. The uterus is surgically absent. No retroperitoneal lymphadenopathy. Normal caliber abdominal aorta. There are few calcifications within the pancreatic tail, unchanged. This likely represents a chronic pancreatitis. No CT evidence for acute pancreatitis. A few subcentimeter cystic foci within the pancreas remains stable and favor small side branch intraductal papillary mucinous neoplasms. Suboptimal evaluation for bowel pathology due to the lack of intravenous and oral contrast. However, there is no definite bowel wall thickening or obstruction. Rectosigmoid anastomosis again noted consistent with a prior partial colonic resection. Colonic diverticulosis. No evidence for acute diverticulitis. The appendix is not identified and reportedly surgically absent. IMPRESSION: 1. Moderate bladder wall thickening with adjacent fat stranding consistent with a cystitis. There is also urothelial thickening within the mid to distal ureters with mild periureteral edema. This likely represents an associated pyelitis. No perinephric fat stranding identified. 2. No definite bowel wall thickening or obstruction. 3. Colonic diverticulosis. No evidence for acute diverticulitis. 4. Postoperative changes as described above. ACT 112: Negative or not required by law. Electronically signed by: George Castaneda M.D. 09/24/2021 9:22 PM Medications Administered Current Inpatient Medications Acetaminophen (Acetaminophen 325 Mg Tab) 650 mg PO Q4H PRN PRN Reason: Pain or Fever Stop: 10/25/21 01:39 Hydrocodone Bitart/Acetaminophen (Hydrocodone/Acetamophen 5/325mg Tab) 1 tab PO DAILY PRN PRN Reason: Moderate Pain Stop: 10/09/21 01:39 Atorvastatin Calcium (Atorvastatin 10 Mg Tab) 10 mg PO HS [facility] Stop: 10/25/21 20:59 Estrogens Conjugated (Premarin Vag Crm 14 Appln/30 Gm Tube) 1 appln PV TuSa@0900 [facility] Stop: 10/28/21 08:59 Hydroxychloroquine Sulfate (Hydroxychloroquine Sulfate 200 Mg Tab) 400 mg PO HS [facility] Stop: 10/25/21 20:59 Lactated Ringer's (Lr) 1,000 mls @ 80 mls/hr IV .[id number] [facility] Stop: 10/24/21 23:44 Last Admin: 09/25/21 12:43 Dose: 80 mls/hr Ceftriaxone Sodium 2,000 mg/ (Dextrose) 70 mls @ 100 mls/hr IV DAILY [facility]; Protocol Stop: 10/05/21 08:59 Last Infusion: 09/25/21 10:05 Dose: Infused Lisinopril (Lisinopril 20 Mg Tab) 20 mg PO HS [facility] Stop: 10/25/21 20:59 Ondansetron HCl (Ondansetron Inj 2 Mg/Ml 2 Ml Vial) 4 mg IV Q6H PRN PRN Reason: Nausea Stop: 10/25/21 01:39 Vitamin D (Cholecalciferol 1,000 Units 25 Mcg Tab) 2,000 units PO [facility] Stop: 10/25/21 20:59 Resident Activity Tracking Resident Involvement: Resident Care Provided Care Provided: Adult Hospital Medicine (1) Nausea and vomiting Vomiting type: unspecified Qualified Code(s): R11.2 - Nausea with vomiting, unspecified
[2021-09-25] MEDS: cefTRIAXone SODIUM 2,000 MG in DEXTROSE 5% 50 ML IV SCH (09:23)
--- NOTE | 2021-09-25 17:31 | Billing Data ---
Date of Service September 25, 2021 Coding Level of Care Code 83396 Subseq Hosp Care Lvl 3
[2021-09-25] MEDS ORDERED: HYDROXYCHLOROQUINE SULFATE 200 MG TAB PO SCH (21:00)
[2021-09-25] MEDS ORDERED: lisinopril 20 MG TAB PO SCH (21:00)
[2021-09-25] MEDS ORDERED: CHOLECALCIFEROL 1,000 UNITS 25 MCG TAB PO SCH (21:00)
[2021-09-25] MEDS ORDERED: ATORVASTATIN 10 MG TAB PO SCH (21:00)
[2021-09-26] MEDS ORDERED: BENZONATATE 100 MG CAPSULE PO PRN (04:06)
[2021-09-26] MEDS: LACTATED RINGER'S 1,000 ML IV SCH (04:23)
[2021-09-26 06:48] LABS: Basophils # (auto) 0.04 K/uL (0-0.2); Basophils % (auto) 0.5 %; Eosinophils # (auto) 0.07 K/uL (0-0.50); Eosinophils % (auto) 0.9 %; Hematocrit (blood only) 31.3 % (34.1-44.9); Hemoglobin 11.1 g/dl (12.0-16.0); Immature Granulocytes # (auto) 0.02 K/uL (0.00-0.02); Immature Granulocytes % (auto) 0.3 %; Lymphocytes # (auto) 1.32 K/uL (1.2-3.4); Lymphocytes % (auto) 17.6 %; Mean Corpuscular Hemoglobin 31.5 pg (25.0-34.0); Mean Corpuscular Hgb Conc 35.5 g/dL (32.0-36.0); Mean Corpuscular Volume 88.9 fL (80.0-100.0); Mean Platelet Volume 10.8 fL (9.4-12.3); Monocytes # (auto) 0.91 K/uL (0.24-0.82); Monocytes % (auto) 12.1 %; Neutrophils # (auto) 5.15 K/uL (1.4-6.5); Neutrophils % (auto) 68.6 %; Platelet Count 171 K/uL (130-400); RDW Coefficient of Variation 12.3 % (11.5-14.5); RDW Standard Deviation 40.1 fL (36.4-46.3); Red Blood Count 3.52 M/uL (3.93-5.22); White Blood Count 7.51 K/ul (4.8-10.8)
[2021-09-26 07:23] LABS: BUN Creatinine Ratio 12.5 (10-20); Calcium 8.7 mg/dl (8.5-10.1); Creatinine Clr Calc Pharmacy 53.2 ml/min; Est GFR (African American) 71.9 ml/min; Est GFR (Non-African American) 62.1 ml/min; Potassium 4.3 mmol/L (3.5-5.1)
--- NOTE | 2021-09-26 07:58 | Hospitalist Progress Note ---
Date of Service September 26, 2021 Assessment & Plan (1) Cystitis: Plan: 81-year-old female with a past medical history including recurrent urinary tract infections, vitamin B12 deficiency, vasovagal syncope, right TKA, bilateral hip bursitis, diverticular colonic abscess, IPMN, solitary pulmonary nodule, PAD, hypertension, hepatic steatosis, GERD and dyslipidemia, presents to the emergency department today due to persistence of urinary symptoms, in addition, developed significant nausea and vomiting over the past 24 hours 1) Acute Cystitis Acute pyelonephritis/cystitis/pyelitis- Multiple infections in the past have been pansensitive E. coli Ceftriaxone 2 g IV daily Follow urine cultures and sensitivity WBC downtrending last 12.8 (3) PMR (polymyalgia rheumatica): Continue hydroxychloroquine 400 mg at bedtime Continue hydrocodone/acetaminophen daily as needed moderate pain (4) Nausea and vomiting: May be an early sign of sepsis, placing on IV antibiotics May be secondary to hyponatremia, placing on IV fluids Symptomatic treatment with Zofran (5) Acute hyponatremia: Hyponatremia/hypomagnesemia- Sodium 124, magnesium 1.6 on admission Magnesium sulfate 2 g IV LR at 80 mils per hour Treat nausea and vomiting Follow laboratory serially, last 126 (6) Hypertension: Continue lisinopril 20 mg daily (7) Dyslipidemia: Continue atorvastatin 10 mg at bedtime FENa: full liquid, LR 80/h Code Status: full DVT PPX: SCDs Case Management: pending Dispo: med/surg Kisha Jimenes Do PGY 2, FCM (2) PMR (polymyalgia rheumatica): (3) Nausea and vomiting: (4) Frequent urinary tract infections: (5) Hypertension: (6) Dyslipidemia: Admission and Anticipated Discharge Date Admission Date: September 24, 2021 Results & Data Results & Data ([facility]) Vital Signs (Past 12 Hours) Vital Signs Temp Pulse Pulse Resp BP Pulse Ox O2 Del Method 09/26/21 07:54 37 C 69 18 151/86 H 95 Room Air 09/26/21 07:28 68 09/26/21 03:45 36.7 C 69 16 131/79 95 Room Air 09/26/21 00:08 78 09/25/21 23:46 36.7 C 73 18 133/71 95 Room Air (1) Nausea and vomiting Vomiting type: unspecified Qualified Code(s): R11.2 - Nausea with vomiting, unspecified
[2021-09-26] MEDS: cefTRIAXone SODIUM 2,000 MG in DEXTROSE 5% 50 ML IV SCH (08:11)
--- NOTE | 2021-09-26 12:25 | Discharge Summary ---
Date of Service September 26, 2021 Admission HPI Per Admitting Provider The patient is a an 81-year-old female with a past medical history including recurrent urinary tract infections, vitamin B12 deficiency, vasovagal syncope, right TKA, bilateral hip bursitis, diverticular colonic abscess, IPMN, solitary pulmonary nodule, PAD, hypertension, hepatic steatosis, GERD and dyslipidemia. She reports that she started a course of Macrobid that was provided by her physician whenever she developed a urinary tract infection, completed a 6-day course of this, and then remained off antibiotics for couple days to be able to get a urine culture and sensitivity 2 days ago. She presents to the emergency department today due to persistence of urinary symptoms, in addition, developed significant nausea and vomiting over the past 24 hours. She denies any recent travels or sick exposures. She denies any change in usual dietary intake. Admission Exam Per Admitting Provider The patient is awake, alert and oriented 3, well developed and well nourished, normocephalic and atraumatic, lying in bed and in no acute distress. HEENT--PERRL, EOMI, mucous membranes and oropharynx dry. Neck--supple. No JVD. No bruits. Thyroid normal, trachea midline, no adenopathy. Heart--normal S1 and S2. No murmurs, rubs or gallops. Lungs--clear bilaterally, no respiratory distress, no accessory muscle use. Abdomen--normal bowel sounds and soft. Nontender. Nondistended. Extremities--no cyanosis or clubbing. No edema. Dermatologic--normal skin turgor, normal color, no abnormal lymph nodes, no rash. Neurologic--cranial nerves II through XII grossly intact. Rheumatologic--normal range of motion. Psychiatric--normal affect. Principal Diagnosis Cystitis Discharge Exam Constitutional WD/WN, vitals as above Eyes PERRL, conjunctivae normal, anicteric sclerae ENMT external ear and nose normal, oropharynx normal Neck trachea midline, no thyromegaly Respiratory normal respiratory effort, lungs clear to auscultation Cardiovascular RRR, no murmur, no edema Chest (Breasts) Chest: normal inspection of chest Gastrointestinal (Abdomen) normal bowel sounds, soft, nontender, no hepatosplenomegaly Skin no rashes, warm and dry Discharge Data Allergies Allergy/AdvReac Type Severity Reaction Status Date / Time sulfamethoxazole Allergy Severe Nausea Verified 09/24/21 22:06 [From Bactrim] trimethoprim [From Bactrim] Allergy Severe Nausea Verified 09/24/21 22:06 ciprofloxacin Allergy Intermediate rash Verified 09/24/21 22:06 metronidazole Allergy Intermediate rash Verified 08/11/21 21:29 metoclopramide AdvReac Severe seizure-like Verified 09/24/21 22:06 activity prochlorperazine AdvReac Severe seizure-like Verified 09/24/21 22:06 activity indomethacin AdvReac Intermediate nausea Verified 09/24/21 22:06 Consultations 09/24/21 21:40 ED Decision to Admit Stat Ordered Studies 09/24/21 20:18 CT abd pelvis wo con Stat Hospital Course (1) Cystitis: 81-year-old female with a past medical history including recurrent urinary tract infections, vitamin B12 deficiency, vasovagal syncope, right TKA, bilateral hip bursitis, diverticular colonic abscess, IPMN, solitary pulmonary nodule, PAD, h ypertension, hepatic steatosis, GERD and dyslipidemia, presents to the emergency department today due to persistence of urinary symptoms, in addition, developed significant nausea and vomiting over the past 24 hours -Started Cefdinir 300mg BID 5 days 1) Acute Cystitis Acute pyelonephritis/cystitis/pyelitis- Multiple infections in the past have been pansensitive E. coli. Started on Ceftriaxone 2 g IV daily. Ucx Ecoli. WBC downtrending. Switched to Cefdinir for outpatient BID 5 days, will contact patient if culture sensitivities are changed from previous. (3) PMR (polymyalgia rheumatica): Continue hydroxychloroquine 400 mg at bedtime. Continue hydrocodone/acetaminophen daily as needed moderate pain (4) Nausea and vomiting: - resolved May be an early sign of sepsis, placing on IV antibiotics. May be secondary to hyponatremia, placing on IV fluids. Symptomatic treatment with Zofran (5) Acute hyponatremia: Hyponatremia/hypomagnesemia, noted, repleted with IVF and Mg. Sodium 124 --> 129 , magnesium 1.6-->2. Recheck BMP in outpatient (6) Hypertension: Continue lisinopril 20 mg daily (7) Dyslipidemia: Continue atorvastatin 10 mg at bedtime (2) PMR (polymyalgia rheumatica): (3) Nausea and vomiting: (4) Frequent urinary tract infections: (5) Hypertension: (6) Dyslipidemia: Total Time Total Time Spent Total Time Spent (In Minutes): <30 Discharge Plan Discharge Items Patient Disposition: Home - Self-Care Reason For Visit: CYSTITIS, PYELITIS, HYPONATREMIA, ELEV TROPONIN Discharge Diagnosis: Cystitis Activity: Resume your previous activity Non-emergency contact: Primary Care Provider Call non-emergency contact if: you have any medication questions, your symptoms worsen, your pain is not controlled and you have a fever Follow-up/Referrals: Marcos Sarabia MD [Primary Care Provider] - Diet: Regular Addtl Attending Provider Instructions: You were admitted to the hospital for infection of your bladder and part of your kidney. You were treated with antibiotics, and your symptoms improved. Please take the antibiotic Cefdinir twice a day for 5 days. We noted your electrolytes were slightly low while in the hospital. Please get a BMP checked with your PCP in 1 week. We will send you home with Tessalon Perles for cough. A discharge summary will be sent to your primary care physician to ensure continuity of care. Please bring this discharge summary with you to your next office appointment so that your provider can review it at that time. Follow-up appointments: Make a follow-up appointment with your PCP within the next week. It is very important that you follow up with them shortly after discharge from the hospital. Keep all your follow-up appointments as already scheduled. If you cannot make an appointment, notify your provider. Medications: Your medication list has been reviewed and reconciled upon discharge to ensure accuracy and continuity of care. An updated list of all your medications is included with your hospital discharge paperwork. Please review this list closely, and make note of any changes. * We sent a new medication called Cefdinir to your pharmacy. Take Cefdinir 300mg one tablet twice a day for 5 days. * You may take Tessalon Perles 200mg tablets up to 3 times a day for cough Take your medications as instructed; do not skip a dose of your medicines. Make sure all of your doctors know every medicine you are taking (including ycoh-hgd-yrujghs medicines, vitamins, and supplements). Call your primary care provider before taking any new medicines (including ipas-gcz-vlujada medicines, vitamins, and supplements), because some of these may interact with your current medications, or may make your symptoms worse. Tell your primary care provider if you cannot afford your medications. CONTACT YOUR PRIMARY CARE PROVIDER if you experience any of the following: Difficulty breathing, fever, chills Intractable nausea/vomitting, abdominal pain Difficulty following your treatment plan, or difficulty taking medications CALL 911 OR GO TO THE EMERGENCY DEPARTMENT if you experience any of the following: Sudden, severe abdominal pain or nausea/vomiting Severe chest pain, or chest pain that radiates (moves) to your jaw or arm Sudden, severe shortness of breath or difficulty breathing Thank you for allowing us to participate in your care. Pending Studies at Discharge: No Stand-Alone Forms: [facility], Smoking Cessation Medications and DC Order Prescriptions: New benzonatate 100 mg Capsule 200 mg PO TID PRN (Reason: cough) 5 Days Qty: 15 0RF cefdinir 300 mg capsule 300 mg PO BID 5 Days Qty: 10 0RF Continued lisinopril 20 mg tablet 20 mg PO HS Qty: 90 3RF atorvastatin 10 mg tablet 10 mg PO HS Qty: 90 3RF hydrocodone-acetaminophen 5-325 mg tablet 1 tab PO DAILY PRN (Reason: pain) Qty: 30 0RF cholecalciferol (vitamin D3) [Vitamin D3] 2,000 unit Tablet 2,000 unit PO HS hydroxychloroquine 200 mg tablet 400 mg PO HS Premarin 0.625 mg/gram cream 0.625 mg vaginal 2XWK Rx Instructions: PER PT "WHEN EVER I REMEMBER, I TAKE IT". Discharge Orders: Discharge Order (Routine); Ordered 09/26/21 Ordered By: Kisha Jimenes Admission Data Admit Date/Time: 09/24/21 23:21 Attending Provider: Solo Barclay Admit Provider: Chucho Machuca Primary Care Provider: Marcos Sarabia Other Providers: Chucho Machuca Other Interventions: Discharge Summary Assessment (RN) Last Done: 09/26/21 12:06 Supervising Physician Co-Signing Physician Notes I personally examined the patient and verified all small points of history and exam, discussed case, and agree with decision making with Dr Jalil amaral up to going home. vitals noted nad heent nc at mmm breathing unlabored no accessory muscles good effort pyelonephritis, sepsis - probably failed due to macrobid and possibly not GFR to activate? vs renal parenchymal involvement that would not have been cleared by macrobid? either way improving -again pansensitive E. coli. Improved on ceftr iaxoneHome on cefdinir. Outpatient follow-up. otherwise as above Resident Activity Tracking Resident Involvement: Resident Care Provided Care Provided: Adult [facility]
--- NOTE | 2021-09-26 18:36 | Billing Data ---
Date of Service September 26, 2021 Coding Level of Care Code D/C DAY MANAGEMENT <30 MINS
[2021-09-28] MEDS ORDERED: PREMARIN VAG CRM 14 APPLN/30 GM TUBE PV SCH (09:00)
== END 2021-09-26 13:58 | disposition home or self-care (01) | DRG 690 ==
LOC: ED 20:02 → SUATTDRO 23:21 → EDINP 23:21 → 1E 09-25 01:36 → 2S 09-25 17:00

== ENCOUNTER 2022-08-20 07:41 | Observation (INO) ==
--- NOTE | 2022-08-08 15:18 | PAT Medication Instructions ---
Medication Instructions Date of Service August 08, 2022 Home Medications Medication Instructions Recorded lisinopril 20 mg tablet 20 mg PO HS #90 tabs 12/30/21 atorvastatin 10 mg tablet 10 mg PO HS #90 tabs 03/28/22 hydrocodone 5 mg-acetaminophen 325 1 tab PO DAILY PRN pain #30 tabs 08/08/22 mg tablet nitrofurantoin 100 mg PO HS 90 days #90 caps 08/08/22 monohydrate/macrocrystals 100 mg capsule (Macrobid) cholecalciferol (vitamin D3) 50 mcg (2,000 unit) tablet (Vitamin D3) 2,000 unit PO QAM cranberry 400 mg capsule 800 mg PO QAM lisinopril 20 mg tablet 20 mg PO HS atorvastatin 10 mg tablet 10 mg PO HS coenzyme Q10 100 mg capsule (Co Q-10) 100 mg PO QAM hydrocodone 5 mg-acetaminophen 325 mg tablet 1 tab PO DAILY PRN pain nitrofurantoin monohydrate/macrocrystals 100 mg capsule (Macrobid) 100 mg PO HS STOP taking 2 weeks before surgery cranberry 400 mg capsule 800 mg PO QAM coenzyme Q10 100 mg capsule (Co Q-10) 100 mg PO QAM DO NOT take the morning of surgery cholecalciferol (vitamin D3) 50 mcg (2,000 unit) tablet (Vitamin D3) 2,000 unit PO QAM Take morning of surgery With a small sip of water, OTHERWISE NOTHING TO EAT OR DRINK AFTER MIDNIGHT: hydrocodone 5 mg-acetaminophen 325 mg tablet 1 tab PO DAILY PRN pain (if needed) Take evening before surgery lisinopril 20 mg tablet 20 mg PO HS atorvastatin 10 mg tablet 10 mg PO HS hydrocodone 5 mg-acetaminophen 325 mg tablet 1 tab PO DAILY PRN pain (if needed) nitrofurantoin monohydrate/macrocrystals 100 mg capsule (Macrobid) 100 mg PO HS Other Notes If you have any questions please call us at [phone] or [phone] or [phone] or [phone]
--- NOTE | 2022-08-11 13:06 | Anesthesiology Consultation ---
Date of Service August 11, 2022 Assessment & Plan (1) Encounter for pre-operative examination: - leukocytosis, currently on prednisone. Acceptable to proceed per chart discussion with Dr. Valencia. - on prednisone taper for PMR: currently on 10 mg, to taper to 5 mg next week including day of surgery. She was instructed to take prednisone as advised including day of surgery. - Outpatient joint assessment: Patient is currently scheduled for inpatient pathway. If re-evaluated pending system levels during current pandemic/surgeon requests outpatient pathway, patient is not recommended candidate for outpatient joint program from anesthesia standpoint. Chart Review Chart Review: Acceptable Risk for Surgery and Patient seen in Pre Admission Testing Teaching & Discussion Pre-Anesthesia Teaching/Discussion Notes: Instructed NPO after midnight before surgery, except medications with 15 cc of water. Medication instructions provided according to the PAT guidelines. History Surgery Operation Date: 08/20/22 08:50 Proposed Procedures p Left Total Knee Arthroplasty - Mitchell Trimble MD Height/Weight Height: 5 ft 3.5 in Weight: 85.729 kg Allergies Allergy/AdvReac Type Severity Reaction Status Date / Time metoclopramide Allergy Severe seizure-like Verified 08/08/22 08:45 activity prochlorperazine Allergy Severe seizure-like Verified 08/08/22 08:45 activity sulfamethoxazole Allergy Severe Nausea Verified 08/08/22 08:45 [From Bactrim] trimethoprim [From Bactrim] Allergy Severe Nausea Verified 08/08/22 08:45 ciprofloxacin Allergy Intermediate rash Verified 08/08/22 08:45 indomethacin Allergy Intermediate nausea Verified 08/08/22 08:45 metronidazole Allergy Intermediate rash Verified 08/08/22 08:45 Medications Home Medications Medication Instructions Recorded Confirmed Last Taken cholecalciferol (vitamin D3) 50 2,000 unit PO QAM 05/27/18 08/08/22 08/10/21 mcg (2,000 unit) tablet (Vitamin D3) cranberry 400 mg capsule 800 mg PO QAM 10/03/21 08/08/22 Unknown lisinopril 20 mg tablet 20 mg PO HS #90 tabs 12/30/21 08/08/22 Unknown atorvastatin 10 mg tablet 10 mg PO HS #90 tabs 03/28/22 08/08/22 Unknown coenzyme Q10 100 mg capsule (Co 100 mg PO QAM 08/08/22 08/08/22 Unknown Q-10) hydrocodone 5 mg-acetaminophen 325 1 tab PO DAILY PRN pain #30 tabs 08/08/22 Unknown mg tablet nitrofurantoin 100 mg PO HS 90 days #90 caps 08/08/22 Unknown monohydrate/macrocrystals 100 mg capsule (Macrobid) prednisone 10 mg tablet 10 mg PO DIRECTED 08/11/22 08/11/22 Unknown Past Medical History Medical History (Updated 08/11/22 @ 13:16 by Paulina Donaldson PA-C) Chronic kidney disease, stage III (moderate) Fatty liver Frequent urinary tract infections takes maintenance Macrobid daily History of COVID-19 08/2021, tested at [facility], not hosp; having UTI symptoms, "felt sick went to the ER,">resolved History of diverticulitis last flare-06/2022 Hyperlipemia Hypertension controlled, stable per pt Kidney stone hx Obesity Pancreatic cyst monitoring PMR (polymyalgia rheumatica) on prednisone taper for myalgias and arthralgias Patient denies h/o stroke, seizures, heart attack, heart failure, DM, blood clots or blood transfusions. Exercise / Class Metabolic Activity II 4-5 Yardwork/Stairs/Walk up hill (denies chest discomfort or shortness of breath with 1 FOS) Past Family History Family History Sister Rheumatoid arthritis Breast cancer Other Diabetes Family history of kidney disease Hypertension Denies family history of Ovarian cancer Prostate cancer Myocardial infarction Colorectal cancer Past Surgical History Surgical History (Updated 08/11/22 @ 13:18 by Paulina Donaldson PA-C) History of appendectomy History of bilateral oophorectomies History of cataract surgery R/L History of cholecystectomy History of colon resection 05/2013 2/2 diverticulitis History of colonoscopy History of hysterectomy Hx of basal cell carcinoma excision R eyelid Status post right knee replacement R TKA L4-L5 1 attempt + PNB. Past Anesthesia History No Hx of Anesthesia Complications and No Family Hx of Anesthesia Complications History of PONV No Hx of PONV and No Hx of Motion Sickness Social History Smoking Status: Never smoker Do You Dip or Chew Tobacco: No Hx Alcohol Use: Yes alcohol intake frequency: holidays/special occasions only Hx Substance Use: No substance use type: does not use Review of Systems Patient denies chest pain, shortness of breath, dyspnea on exertion, snoring, witnessed apneas, reflux, fever, chills, cough, wheezing, or palpitations. Physical Exam Vital Signs Vitals BP 135/81 P 77 TEMP 97.9 SP02 96% on RA RESP 17 Physical Full cervical extension range of motion without pain TMD 3.5 finger breadths Mallampati Score 2 Dentition: upper and lower partials, denies chipped or loose teeth, caps/crowns, implants or bridges Lungs: normal respiratory effort. Good air movement, clear throughout to auscultation, no adventitious breath sounds Cardiac: regular rate and rhythm, no murmurs noted Carotid arteries: negative bruit bilat Lab Results Anesthesia Preop Results Results Anesthesia Widget: WBC 14.06 K/ul (4.8-10.8) H 08/11/22 Hgb 13.4 g/dl (12.0-16.0) 08/11/22 Hct 38.0 % (37.0-47.0) 08/11/22 Plt 245 K/uL (130-400) 08/11/22 Na 132 mmol/L (136-145) L 08/11/22 K 4.5 mmol/L (3.5-5.1) 08/11/22 Cl 98 mmol/L (98-107) 08/11/22 CO2 25 mmol/L (21-32) 08/11/22 BUN 30 mg/dl (6-23) H 08/11/22 Creat 0.98 mg/dl (0.6-1.2) 08/11/22 Glucose Level 136 mg/dl (70-99(Fasting)) H 08/11/22 PT 10.8 Seconds (9.0-12.0) 08/11/22 PTT 24.0 Seconds (21.0-31.0) 08/11/22 INR 1.0 (0.9-1.1) 08/11/22 HA1c 6.1 % (4.5-5.6) H 06/25/22 Blood Type A Positive 08/11/22 Antibody Screen NEGATIVE 08/11/22 Testing Electrocardiogram Date: 08/11/22 NSR, rate 75 bpm Left anterior fascicular block Possible lateral infarct, cited on or before 12/11/20 Chest X-Ray Date: 08/11/22 No acute chest disease Echocardiogram Date: 12/28/20 EF 65-70% No regional wall motion abnormalities Moderate cLVH Mild mitral regurgitation Other Testing Abdomen pelvis CT 03/15/22 1. Focal thickening and pericolonic fat stranding within the proximal sigmoid colon likely representing an acute diverticulitis. Follow-up to resolution recommended to exclude the less likely possibility of underlying colonic lesion. 2. No perforation or abscess identified at this time. 3. Progressive dilatation of the proximal pancreatic duct within the pancreatic tail with a few pancreatic calcifications. This could be due to chronic stricture/chronic pancreatitis changes. However, follow-up GI consultation recommended for further evaluation and to exclude the less likely possibility of underlying occult lesion. Carotid doppler 12/28/20 < 50% stenosis in ICAs bilat COVID-19 Risk Screen Screening Information COVID-19 Screen Date: 08/11/22 Exposure 21 Days Family/Household +COVID Last 21 Days: No Exposure 10 Days Any COVID Exposure Last 10 Days: No Symptoms Last 10 Days Experienced COVID Sx Last 10 Days: No + COVID 0-90 Days COVID + in Last 0-90 Days: No
[~2022-08-20 07:41] MED LIST changes: +BUPIVACAINE 0.5 % 5 MG/1 ML PF 10ML VIAL ONE; -BUPIVACAINE LIPOSOME/PF 266 MG, BUPIVACAINE/EPINEPHRINE 50 ML, SODIUM CHLORIDE 0.9% 30 ... INFIL SCH; +BUPIVACAINE LIPOSOME/PF 266 MG, BUPIVACAINE/EPINEPHRINE 50 ML, SODIUM CHLORIDE 0.9% PF ... INFIL SCH; -CEFAZOLIN 2000MG 2,000 MG/15 ML SYR IV SCH; +CeleBREX 200 MG CAP PO SCH; +EPINEPHrine INJ 1 MG/ML AMP ONE; -GABAPENTIN 300 MG CAP PO SCH; -LR 15ML/HR IV SCH; +LR 500ML BOLUS, THEN 15ML/HR IV SCH; -METOCLOPRAMIDE HCL 10 MG TABLET PO SCH; +ROPIVACAINE 0.5% 5 MG/ML 30 ML VIAL ONE; +TRANEXAMIC ACID 1,000 MG x 1 **For Topical Use TOP SCH; +ceFAZolin 2000MG 2,000 MG/15 ML SYR IV SCH; +dexAMETHasone**PF** 10 MG/ML VIAL IV SCH
[2022-08-20] MEDS ORDERED: TRANEXAMIC ACID / 0.7% NACL 1000MG/100ML BAG IV ONE (08:18)
--- NOTE | 2022-08-20 09:00 | History & Physical Bridge Note ---
Date of Service August 20, 2022 History & Physical Bridge Note I have examined the patient, reviewed the History & Physical and in the interval since the performance of the History & Physical I have noted the following changes of clinical significance: no changes noted
[2022-08-20] MEDS ORDERED: DEXAMETHASONE SOD INJ 4 MG/ML VIAL ONE (09:29)
[2022-08-20] MEDS ORDERED: LIDOCAINE 2% 2 ML VIAL/AMP(20MG/ML) INFIL ONE (09:29)
[2022-08-20] MEDS ORDERED: PROPOFOL IV EMULSION 10 MG/ML 20 ML VIAL IV ONE (09:29)
[2022-08-20] MEDS ORDERED: MIDAZOLAM HCL 1 MG/ML 2ML VIAL ONE (09:29)
[2022-08-20] MEDS ORDERED: fentaNYL citrate PF 100 MCG/2 ML VIAL ONE (09:29)
[2022-08-20] MEDS ORDERED: ONDANSETRON INJ 2 MG/ML 2 ML VIAL ONE (09:29)
[2022-08-20] MEDS ORDERED: SODIUM CHLORIDE 0.9% PF 50 ML VIAL ONE (11:07)
[2022-08-20] MEDS ORDERED: BUPIVACAINE/EPINEPHRINE 0.25% 1:200,000 30 ML VIAL ONE (11:07)
[2022-08-20] MEDS ORDERED: BUPIVACAINE LIPOSOME 1.3% 266 MG/20 ML VIAL ONE (11:07)
--- NOTE | 2022-08-20 13:13 | Operative Report ---
PG Post Operative Report Pre & Post Diagnosis Operation Date: 08/20/22 10:20 Pre-Op Diagnosis: Left Knee Advanced Degenerative Joint Disease Post-Op Diagnosis: Left Knee Advanced Degenerative Joint Disease I identified the patient and participated in the time-out.: Yes Procedure Operation Date: 08/20/22 10:20 Actual Procedures p Left Total Knee Arthroplasty(Left) - Mitchell Trimble MD Surgeon Mitchell Trimble MD Refrigerator Cabinetmaker Marvin Herrera PA-C Estimated Blood Loss 50 Findings Consistent with Post-Op Diagnosis Operative findings were advanced left knee DJD. She did pretty extensive grade 4 [id number] disease of the anteromedial compartment. Moderate-sized joint effusion. Slight varus deformity to her knee. Specimens Left knee sent for pathology Anesthesia Type Spinal MAC Complications none Disposition Accompanied Patient To Recovery: No Indications Patient is a 82-year-old female said a long history of knee problems. She been through extensive conservative and the treatment in the past. She did have her right knee with replaced about 3 years ago and is done well with this. She continued be limited by left knee pain discomfort and swelling. She elected proceed with surgical treatment. Description of Procedure Operative implants consist of: 1 Biomet Vanguard size 60 left posterior stabilized femoral component. 2. Biomet size 67 tibial tray. 3. 12 mm posterior stabilized polyethylene insert. 4. 31 x 8 all poly patella. The patient was taken the operating, identified, and placed on the operating table supine position. All contact areas were appropriately padded. IV antibiotics tried by anesthesia team. Spinal anesthetic and abductor canal block had provided in the holding area. [place] catheter was placed in sterile fashion through the left factor was then placed in the left lower extremity was then prepped and draped in usual sterile fashion. The left leg was elevated exsanguinated with use of an Esmarch and the turn was placed at 300 mmHg. An anterior approach the left knee was then performed through a longitudinal incision centered over the patella. Sharp dissection was carried through subcutaneous tissue down the extensor mechanism. A medial parapatellar arthrotomy incision was made. Some subperiosteal dissection was carried out medially. The fat pad was resected from Neath patella tendon. Lateral patellofemoral ligament was released. Patella subluxated laterally knee was flexed with the osteophytes taken off distal femur. The ACL and PCL were then released from distal femur the tibia subluxated anteriorly. The external tibial alignment jig was then placed in the interface the tibia and adjusted 14 mm medially. Proximal tibial cut was made to move out millimeter or 2 of bone from the medial side. The tibia sized to a size 67. Attention drawn the femur. The distal femur was then with a sharp drop with intramedullary canal was suction. A left 5 degree valgus cutting guide was placed. Distal femoral cutting block was pinned in place. Distal femoral cut was made to take an additional 3 mm bone off distal femur. The femur was then sized to a size 60. The AP cutting block was pinned parallel to the epicondylar axis which was 4 degrees of external rotation. The anterior cut, anterior chamfer, posterior cut, posterior chamfer cuts were made. The box cutting guide was then placed in a just slight lateral and the box cut was made. The knee was flexed. The remnants of the medial lateral menisci were excised. The os fights were taken off the posterior aspect of the femur. Trial femoral component was placed. The tibial tray was pinned in maximum external rotation and the drill and stem punch used to create defect in proximal tibia for the tibial tray. The knee was then trialed and the 12 mm insert fit most appropriately. Attention drawn the patella. The patella was cleaned of all soft tissue. Patella thickness measured 20 mm in thickness was cut down to 13. Was sized to a size 31 patella. The lug holes were drilled for 31 patella. The lateral osteophyte was removed. Patella button was placed. Knee was taken through range of motion and the patella tracked nicely with no thumbs test. Attention drawn to placing permanent components. Nupathe all trial components were removed. Bone plug was placed in the distal femur limit blood loss. Double batch Pal[place]os G cement was mixed. Biomet Vanguard size 60 left posterior stabilized femoral component, size 67 tibial tray, 12 mm post stabilized polyethylene insert, and a 31 x 8 all Paller patella then cemented in place. Knee was brought out in full extension till cement hardened. Final cement check was then performed. The pericapsular tissues were injected with total 100 cc of combination of 20 of Exparel, 30 cc normal saline, 50 cc of quarter percent Marcaine with epinephrine. Patient did receive 1 g tranexamic acid. The tourniquet was then let down for final tourniquet time of 52 minutes. Hemostasis reduced electrocautery. The wounds once again irrigated. Extensor mechanism closed with combination 1 PDS suture #1 Vicryl suture in [id number] fashion. Extensor mechanism checked found to be intact the subcutaneous tissue then closed with 2 Dexon suture in buried interrupted fashion skin was closed skin calista. Leg was then cleaned and dried and sterile dressed with Xeroform, 4 fours, sterile cast padding, Myron bandage were applied. Patient then transferred to the recovery in stable condition. Patient tolerated procedure well and there were no complications. Marvin Herrera, my physician visitor services information assistant, was present for the entire procedure. His assistance was essential and required for appropriate patient positioning, prepping and draping, surgical exposure, performing the technical details of the operation, placement the implants, closure of the wound, and placement of the sterile bandage. I attest to the content of the Intraoperative Record and any orders documented therein. Any exceptions are noted below.
[2022-08-20] MEDS ORDERED: ATROPINE SULFATE 0.1 MG/ML 10ML SYR IV PRN (13:25)
[2022-08-20] MEDS ORDERED: ePHEDrine sulfate 50 MG/ML AMP IV PRN (13:25)
--- NOTE | 2022-08-20 14:01 | Anesthesiology Progress Note ---
Date of Service August 20, 2022 Anesthesia Post Procedure Vital Signs Vital Signs: Temp Pulse Resp BP BP Pulse Ox O2 Del Method 08/20/22 14:00 87 15 149/71 H 97 Room Air 08/20/22 13:50 36.3 C L 91 H 12 140/65 96 Room Air 08/20/22 13:40 36.2 C L 86 20 127/67 96 Room Air 08/20/22 13:30 91 H 15 144/69 H 96 Room Air 08/20/22 13:20 89 16 127/58 L 97 Room Air 08/20/22 13:14 36 C L 88 13 123/57 L 99 Oxymask 08/20/22 08:36 36.7 C 77 18 100/89 98 Room Air O2 Flow Rate 08/20/22 14:00 08/20/22 13:50 08/20/22 13:40 08/20/22 13:30 08/20/22 13:20 08/20/22 13:14 4 08/20/22 08:36 Transfer of Care Handoff Completed per policy Notes Mental Status: alert / awake / arousable Patient Amnestic to Procedure: Yes Nausea / Vomiting: adequately controlled Pain: adequately controlled Airway Patency, RR, SpO2: stable & adequate BP & HR: stable & adequate Hydration State: stable & adequate Neuraxial Anesthesia: was administered and sensory block is resolving Anesthetic Complications: no major complications apparent
[2022-08-20] MEDS ORDERED: HYDROmorphone INJ 0.5 MG/0.5 ML SYR IV PRN (14:13)
[2022-08-20] MEDS ORDERED: METOCLOPRAMIDE HCL INJ 5 MG/ML 2 ML VIAL IV PRN (14:13)
[2022-08-20] MEDS ORDERED: ONDANSETRON INJ 2 MG/ML 2 ML VIAL IV PRN (14:13)
[2022-08-20] MEDS ORDERED: HYDROmorphone HCL 2 MG TAB PO PRN (14:13)
[2022-08-20] MEDS ORDERED: MAGNESIUM HYDROXIDE SUSP 30 ML UDC PO PRN (14:13)
[2022-08-20] MEDS ORDERED: ALUMINUM/MAGNESIUM SUSP 30 ML UDC PO PRN (14:13)
[2022-08-20] MEDS ORDERED: NALOXONE HCL 0.4 MG/1 ML VIAL/CARP IV PRN (14:13)
[2022-08-20] MEDS ORDERED: bisacodyL 10 MG SUPP PR PRN (14:13)
[2022-08-20] MEDS: ALLERGY Noted to ORDERED Medication SCH ×3 (14:44→16:08)
[2022-08-20] MEDS: KETOROLAC TROMETHAMINE 15 MG/ML VIAL IV SCH ×2 (14:56→20:07)
[2022-08-20] MEDS: ACETAMINOPHEN 500 MG TAB PO SCH ×2 (14:57→20:07)
[2022-08-20] MEDS: SODIUM CHLORIDE 0.9% 1000ML 1,000 ML IV SCH (14:57)
--- NOTE | 2022-08-20 15:53 | XRay Report ---
XR knee LT 1 or 2V routine CLINICAL HISTORY: Surgical Post Op TECHNIQUE: 2 views of the left knee were obtained. Comparison: Comparison is made to left knee radiographs 07/13/2017 FINDINGS: Patient is status post total knee arthroplasty with expected postsurgical changes including soft tiss ue swelling and subcutaneous emphysema. No periarticular lucency or hardware fracture is seen. IMPRESSION: Expected postoperative appearance status post placement of total knee arthroplasty. ACT 112: Negative or not required by law. Electronically signed by: Ernie Cruz M.D. 08/20/2022 3:52 PM
[2022-08-20] MEDS: ASCORBIC ACID 500 MG TAB PO SCH (17:07)
[2022-08-20] MEDS: ceFAZolin 2000MG 2,000 MG/15 ML SYR IV SCH (19:08)
[2022-08-20] MEDS ORDERED: TRANEXAMIC ACID / 0.7% NACL 1,000 MG/100 ML BAG IV SCH (19:15)
[2022-08-20] MEDS: ASPIRIN 81 MG ECTAB PO SCH (20:06)
[2022-08-20] MEDS: DOCUSATE SODIUM 100 MG CAP PO SCH (20:06)
[2022-08-20] MEDS: SENNA 8.6 MG TAB PO SCH (20:07)
[2022-08-20] MEDS ORDERED: ATORVASTATIN 10 MG TAB PO SCH (21:00)
[2022-08-20] MEDS ORDERED: SENNA 8.6 MG TAB PO SCH (21:00)
[2022-08-20] MEDS ORDERED: lisinopril 20 MG TAB PO SCH (21:00)
[2022-08-21] MEDS: ALLERGY Noted to ORDERED Medication SCH ×2 (01:06→07:56)
[2022-08-21] MEDS: SODIUM CHLORIDE 0.9% 1000ML 1,000 ML IV SCH (02:32)
[2022-08-21] MEDS: ceFAZolin 2000MG 2,000 MG/15 ML SYR IV SCH (02:57)
[2022-08-21] MEDS: KETOROLAC TROMETHAMINE 15 MG/ML VIAL IV SCH ×2 (02:58→07:27)
[2022-08-21 06:31] LABS: Hemoglobin 11.5 g/dl (12.0-16.0); Mean Corpuscular Hemoglobin 31.6 pg (25.0-34.0); Mean Corpuscular Hgb Conc 35.9 g/dL (32.0-36.0); Mean Corpuscular Volume 87.9 fL (80.0-100.0); Mean Platelet Volume 10.1 fL (9.4-12.4); Platelet Count 181 K/uL (130-400); RDW Coefficient of Variation 13.3 % (11.5-14.5); Red Blood Count 3.64 M/uL (4.20-5.40); White Blood Count 17.03 K/ul (4.8-10.8)
[2022-08-21 06:43] LABS: BUN Creatinine Ratio 26.4 (10-20); Calcium 8.8 mg/dl (8.6-10.3); Creatinine Clr Calc Pharmacy 42.9 ml/min; Est GFR (African American) 54.5 ml/min; Potassium 4.4 mmol/L (3.5-5.1)
[2022-08-21] MEDS: ACETAMINOPHEN 500 MG TAB PO SCH (07:27)
[2022-08-21] MEDS: ASPIRIN 81 MG ECTAB PO SCH (07:29)
[2022-08-21] MEDS: DOCUSATE SODIUM 100 MG CAP PO SCH (07:29)
[2022-08-21] MEDS: SENNA 8.6 MG TAB PO SCH (07:29)
[2022-08-21] MEDS: ASCORBIC ACID 500 MG TAB PO SCH (07:29)
[2022-08-21] MEDS ORDERED: predniSONE 5 MG TAB PO ONE (08:00)
[2022-08-21] MEDS ORDERED: dexAMETHasone 10 MG in SYRINGE 0 ML IV SCH (08:00)
--- NOTE | 2022-08-21 08:03 | Progress Notes ---
DATE OF SERVICE: 08/21/2022. SUBJECTIVE: An 82-year-old white female postoperative day 1 from a left knee replacement. She is do ing pretty well. Pain is controlled. Denies any chest pain or shortness of breath. Not feeling diz zy or lightheaded. OBJECTIVE: VITAL SIGNS: Temperature 36.6. Vital signs are stable. Mild hypertension. GENERAL: Shows a pleasant, elderly female. She is sitting up in her bedside chair, looks pretty com fortable this morning. EXTREMITIES: Examination of the left leg reveals the dressing to be clean, dry and intact. She can dorsiflex and plantarflex her foot appropriately. She is neurologically intact. LABORATORY DATA: Hemoglobin 11.5. Hematocrit 32.0. Electrolytes are stable. ASSESSMENT: An 82-year-old white female postoperative day 1 from left knee replacement, doing pretty well. Pain is pretty well controlled. A little hypertensive, likely related to some pain. She is asymptomatic. PLAN: 1. DVT prophylaxis includes thigh-high TEDs, SCDs, and aspirin twice a day. 2. PT/OT, weightbear as tolerated. Left total knee protocol. 3. Pain control, doing okay with current pain regimen. 4. Disposition: Plan to discharge to home with some home health later today if does okay in therapy . Job ID: [id number]
[2022-08-21] MEDS ORDERED: CHOLECALCIFEROL 1,000 UNITS 25 MCG TAB PO SCH (09:00)
[2022-08-21] MEDS ORDERED: NON-FORMULARY MEDICATION (Coenzyme Q10 [Co Q-10] 100 mg Capsule) PO SCH (09:00)
[2022-08-21] MEDS ORDERED: MULTIVITAMIN TAB PO SCH (09:00)
--- NOTE | 2022-08-26 10:27 | Discharge Summary ---
Date of Service August 26, 2022 Discharge Data Procedures Performed Operation Date: 08/20/22 10:20 Actual Procedures p Left Total Knee Arthroplasty(Left) - Mitchell Trimble MD Hospital Course (1) Status post total left knee replacement: This is a 82 year old patient admitted on 08/20/22 and underwent total knee arthroplasty. She tolerated the procedure well and there were no complications. Transferred to the PACU post op and later to the orthopedic floor for further care. She was given ancef for antibiotic prophylaxis. She was also given HERBERTH stockings, SCDs, and aspirin for DVT prophylaxis. Hemoglobin, hematocrit, and vital signs were monitored during her hospital stay and remained stable. Did not require any blood transfusions. There were no complications during her hospital stay. By post op day #1 the patient was tolerating a regular diet, pain was reasonably controlled with oral pain medicine, and she was participating in physical therapy. On post op day #1 the patient was discharged home and set up with home health care. She was given printed discharge instructions including prescriptions for extra strength tylenol, aspirin, cefadroxil, ketorolac, zofran, senokot, and hydromorphone. Continue physical therapy, weight bearing as tolerated. Continue HERBERTH stockings. Follow up approximately 2 weeks post op or sooner if there are problems or concerns. Coding Level of Care Code None Diagnoses Status post total left knee replacement Z96.652
== END 2022-08-21 11:20 | disposition home health service (06) ==
LOC: 3E 07:41 → ASU 07:41

== ENCOUNTER 2023-03-09 07:53 | Inpatient (IN) ==
--- NOTE | 2023-03-09 08:01 | Emergency Department Note ---
ED Provider Note History of Present Illness Chief Complaint: Flu Like Symptoms Stated Complaint: NAUSEA, COUGH - COVID+ LAST WEEK Time Seen by Provider: 03/09/23 08:00 This is a an 82-year-old female with a history of CKD stage III, polymyalgia rheumatica, Who presents to the emergency department feeling "wiped out" after testing positive for COVID-19 about 1 week ago. Patient states that she initially developed a cough and bodyaches feeling. Had a fever of 100 for a day but has not had any additional fevers. She has had vomiting nearly every day and had diarrhea 2 days ago but no other diarrhea. She is trying to stay hydrated with Gatorade. She continues to cough has a lot of congestion. She continues with nausea. Was having dry heaves this morning. She tried using Mucinex for her congestion which did help a little bit. Has been sleeping upright in a recliner for the past few nights which helps with the congestion and nausea. Has not had any recent fevers. Does not have any chest pain. Does not feel short of breath. Home Medications Medication Instructions Recorded Confirmed Type cholecalciferol (vitamin D3) 50 2,000 unit PO HS 05/27/18 03/09/23 History mcg (2,000 unit) tablet (Vitamin D3) cranberry 400 mg capsule 800 mg PO HS 10/03/21 03/09/23 History atorvastatin 10 mg tablet 10 mg PO HS #90 tabs 03/28/22 03/09/23 Rx coenzyme Q10 100 mg capsule (Co 100 mg PO HS 08/08/22 03/09/23 History Q-10) acetaminophen 500 mg tablet 1,000 mg PO TID PRN pain 10/02/22 03/09/23 History (Tylenol Extra Strength) methenamine hippurate 1 gram tablet 1 g PO HS #90 tabs 02/18/23 03/09/23 Rx hydrocodone 5 mg-acetaminophen 325 1 tab PO DAILY PRN pain #30 tabs 02/25/23 03/09/23 Rx mg tablet lisinopril 20 mg tablet 20 mg PO HS 03/09/23 03/09/23 History Allergies Allergy/AdvReac Type Severity Reaction Status Date / Time metoclopramide Allergy Severe seizure-like Verified 03/09/23 11:09 activity prochlorperazine Allergy Severe seizure-like Verified 03/09/23 11:09 activity sulfamethoxazole Allergy Severe Nausea Verified 03/09/23 11:09 [From Bactrim] trimethoprim [From Bactrim] Allergy Severe Nausea Verified 03/09/23 11:09 ciprofloxacin Allergy Intermediate rash Verified 03/09/23 11:09 indomethacin Allergy Intermediate nausea Verified 03/09/23 11:09 metronidazole Allergy Intermediate rash Verified 03/09/23 11:09 olmesartan Allergy Mild Itching Verified 03/09/23 11:09 Past Med/Surg History Medical History Hip bursitis, left Arthritis of left hip Pancreatic cyst monitoring History of COVID-19 08/2021, tested at [facility], not hosp; having UTI symptoms, "felt sick went to the ER,">resolved Frequent urinary tract infections takes maintenance Macrobid daily Obesity Fatty liver Hypertension controlled, stable per pt Chronic kidney disease, stage III (moderate) Kidney stone hx History of diverticulitis last flare-06/2022 PMR (polymyalgia rheumatica) on prednisone taper for myalgias and arthralgias Hyperlipemia Surgical History History of knee replacement Status post total left knee replacement 08/20/2022 Hx of basal cell carcinoma excision R eyelid Status post right knee replacement R TKA L4-L5 1 attempt + PNB. History of cataract surgery R/L History of colonoscopy History of colon resection 05/2013 2/ diverticulitis History of bilateral oophorectomies History of hysterectomy History of appendectomy History of cholecystectomy Family History Sister Rheumatoid arthritis Breast cancer Other Diabetes Family history of kidney disease Hypertension Denies family history of Ovarian cancer Prostate cancer Myocardial infarction Colorectal cancer Social History Smoking Status: Never smoker Second Hand Exposure: No; Do You Dip or Chew Tobacco: No; Hx Alcohol Use: Yes (Rarely ) Hx Substance Use: No Preferred Language: Cameroonian Communication Ability: Effective Visual Impairment: No Limitations Hearing Ability: Normal Flyer Maker Required: No Beliefs That Will Affect Care: None marital status: Current Living Situation: Spouse current occupational status: retired Feels Safe at Home: Yes Childhood Exposure to Second-Hand Smoke: Yes Dental Care, Regularly: Yes Physical Activity Frequency: 3-4 Times per Week Seatbelt Use: always Sunscreen Use: Yes Assistive Devices: Walker Physical Exam Vital Signs Vital Signs - 24 hr 03/09/23 07:54 03/09/23 08:37 03/09/23 09:06 Temperature 97.5 F L Temperature Source Temporal Artery Scan Pulse Rate 98 H 90 79 Pulse Rhythm Regular Respiratory Rate 18 20 Respiratory Effort / Characteristics Non-Labored Spontaneous Respiratory Depth Normal Respiratory Pattern Regular Blood Pressure 113/73 Blood Pressure Mean 86 Blood Pressure Position Sitting Pulse Oximetry 96 98 Oxygen Delivery Method Room Air Room Air Sepsis Recent Fever Within 48 Hours No Sepsis New/Unexplained Change in Mental Status No Sepsis Action Taken by Nursing No Action Required CONSTITUTIONAL: Well developed, well nourished, fatigued and mildly ill- appearing, nontoxic HEAD: Normocephalic, atraumatic. EYES: conjunctivae normal, extraocular muscles intact. ENMT: External ears normal. Nose with normal external appearance, no congestion. Oral mucous membranes dry. Oropharynx otherwise normal. NECK: No JVD. Supple RESPIRATORY: Intermittent cough is present. Patient initially with expiratory wheezes diffusely which clear after several deep inspirations. Patient is moving air well. She is not in any respiratory distress. CARDIOVASCULAR: Regular rate and rhythm. No murmurs, rubs, or gallops. ABDOMEN: Normal bowel sounds. Abdomen is soft. There is reproducible tenderness in the epigastric region. No peritonitis. MUSCULOSKELETAL: Moves all extremities at all joints without pain or difficulty. No cyanosis or edema. SKIN: [place], warm, dry. NEUROLOGIC: Awake, alert, oriented. Gaze is conjugate. Face symmetric, speech normal. Moves head and all four extremities spontaneously. Sensation and strength grossly intact. PSYCHIATRIC: Appropriate. Normal affect Course Administered Medications Discontinued Medications Albuterol (Albuterol 0.083% Nebu Soln 3 Ml Vial) 2.5 mg NEB NOW STA; Protocol Stop: 03/09/23 08:16 Last Admin: 03/09/23 08:49 Dose: 2.5 mg Documented By: NISREEN Dextromethorphan Polymer Complex (Dextromethorphan Polymr Complx 60 Mg/10 Ml Udp) 60 mg PO NOW STA Stop: 03/09/23 08:16 Last Admin: 03/09/23 09:20 Dose: 60 mg Documented By: NISREEN Hydrocortisone Sodium Succinate (Hydrocortisone Sod Succinate 100 Mg/2 Ml Vial) 50 mg IV NOW STA Stop: 03/09/23 10:40 Last Admin: 03/09/23 11:55 Dose: 50 mg Documented By: BE Hydromorphone HCl (Hydromorphone Inj 0.5 Mg/0.5 Ml Syr) 0.5 mg IV NOW STA Stop: 03/09/23 11:15 Last Admin: 03/09/23 11:54 Dose: 0.5 mg Documented By: BE Sodium Chloride (Nss) 1,000 mls @ 999 mls/hr IV .Q1H1M STA Stop: 03/09/23 09:05 Last Infusion: 03/09/23 11:49 Dose: Infused Documented By: Admin: 03/09/23 08:50 Dose: 999 mls/hr Documented By: NISREEN Famotidine (Pepcid 20mg Iv Push) 20 mg in 5 mls @ 2.5 mls/min IV NOW STA Stop: 03/09/23 08:16 Last Admin: 03/09/23 08:49 Dose: 2.5 mls/min Documented By: NISREEN Acetaminophen (Ofirmev) 1,000 mg in 100 mls @ 400 mls/hr IV NOW STA Stop: 03/09/23 08:29 Last Infusion: 03/09/23 11:49 Dose: Infused Documented By: Admin: 03/09/23 08:49 Dose: 400 mls/hr Documented By: NISREEN Ondansetron HCl (Ondansetron Inj 2 Mg/Ml 2 Ml Vial) 4 mg IV NOW STA Stop: 03/09/23 08:16 Last Admin: 03/09/23 08:49 Dose: 4 mg Documented By: NISREEN Medical Decision Making Differential Diagnosis Dehydration, gastroenteritis, upper respiratory infection, pneumonia, gastritis, peptic ulcer disease, pancreatitis, cholecystitis, cholelithiasis, ANGIE, electrolyte imbalance, bronchitis, ACS, among other pathology Laboratory Data 03/09/23 08:51 03/09/23 08:51 Lab Results 03/09/23 03/09/23 Range/Units 08:51 10:19 WBC 6.89 (4.8-10.8) K/ul RBC 4.18 L (4.20-5.40) M/uL Hgb 13.0 (12.0-16.0) g/dl Hct 36.0 L (37.0-47.0) % MCV 86.1 (80.0-100.0) fL MCH 31.1 (25.0-34.0) pg MCHC 36.1 H (32.0-36.0) g/dL RDW Std Deviation 41.1 (36.4-46.3) fL RDW Coeff of Dustin 13.1 (11.5-14.5) % Plt Count 193 (130-400) K/uL MPV 11.2 (9.4-12.4) fL Immature Gran % (Auto) 0.4 % Neut % (Auto) 64.7 % Lymph % (Auto) 21.8 % [place] % (Auto) 11.9 % Eos % (Auto) 0.9 % Baso % (Auto) 0.3 % Neut # (Auto) 4.46 (1.40-6.50) K/uL Lymph # (Auto) 1.50 (1.20-3.40) K/uL [place] # (Auto) 0.82 H (0.11-0.59) K/uL Eos # (Auto) 0.06 (0.00-0.50) K/uL Baso # (Auto) 0.02 (0.00-0.20) K/uL Immature Gran # (Auto) 0.03 (0.01-0.20) K/uL Sodium 123 L (136-145) mmol/L Potassium 3.7 (3.5-5.1) mmol/L Chloride 92 L (98-107) mmol/L Carbon Dioxide 22 (21-32) mmol/L Anion Gap 9 (3-11) BUN 12 (6-23) mg/dl Creatinine 0.82 (0.6-1.2) mg/dl Est Cr Clr Drug Dosing 57.3 ml/min Est GFR ( Amer) 77.8 ml/min Est GFR (Non-Af Amer) 67.1 ml/min BUN/Creatinine Ratio 14.6 (10-20) Glucose 141 H (70-99(Fasting)) mg/dl Osmolality Cancelled Calcium 9.1 (8.6-10.3) mg/dl Total Bilirubin 1.0 (0.2-1.0) mg/dl AST 18 (13-39) U/L ALT 17 (7-52) U/L Alkaline Phosphatase 57 (34-104) U/L Troponin I High Sens 11.3 (0-14) pg/ml Total Protein 6.6 (6.0-8.3) gm/dl Albumin 4.0 (3.4-5.0) gm/dl Globulin 2.6 (2.5-4.0) gm/dl Albumin/Globulin Ratio 1.5 (0.9-2) Lipase 14 (11-82) U/L Urine Color [place] Urine Appearance Clear (Clear) Urine pH 6.5 (4.5-7.5) Ur Specific [place] 1.008 (1.000-1.030) Urine Protein Negative (Negative) Urine Glucose (UA) Negative (Negative) Urine Ketones Negative (Negative) Urine Blood Negative (Negative) Urine Nitrite Negative (Negative) Urine Bilirubin Negative (Negative) Urine Urobilinogen Negative (Negative) Ur Leukocyte Esterase Trace H (Negative) Urine WBC (Auto) 1-5 (0-5) /hpf Urine RBC (Auto) 0-4 (0-4) /hpf U Hyaline Cast (Auto) 1-5 (0-5) /lpf U Epithel Cells (Auto) >30 H (0-5) /lpf Urine Bacteria (Auto) Negative (Negative) Urine Osmolality 235 L (500-800) mOsm/kg Ur Random Sodium 47 mmol/L SARS-CoV-2, RNA, NAAT POSITIVE A* (NEGATIVE) ECG Data Attestation: I personally reviewed and interpreted this ECG as follows: (Sinus rhythm with a rate of 79. First degree AV block IN interval 220. No acute ST elevation. Left axis deviation. Left anterior fascicular block. Compared to prior ECG, IN interval slightly prolonged, otherwise no significant changes) MDM Narrative 82-year-old female with a history above presents to the emergency department with persistent symptoms after being diagnosed with COVID-19. She continues with nausea and dry heaves and a persistent cough. No recent fevers. See above for further details. Patient does appear to be fatigued and mildly ill-appearing however is nontoxic. Her mucous membranes are dry. She has some diffuse expiratory wheezes initially though these clear after several deep inspirations. No obvious rales. Heart rate is right around 100. O2 saturation 96% on room air. Normotensive. Order was placed for continuous cardiac monitoring at time of evaluation demonstrates sinus rhythm in the 70s. Differential diagnosis considered above. IV was inserted and labs were obtained. Patient was given IV fluids, Tylenol, Zofran, Pepcid, Delsym, and an albuterol treatment. Labs: Marked acute hyponatremia at 123. Chloride 92. Troponin is normal. Renal function is normal. COVID test is positive. Lipase normal. ECG demonstrates a first-degree A-V block IN interval 220, left anterior fascicular block, otherwise no significant changes. Chest x-ray pending at time of admission Reevaluated patient. She still felt terrible. With a sodium of 123, this is likely contributing to a lot of her symptoms to admission was recommended and she was comfortable with this plan. She does have a history of hyponatremia however never this low. I called and spoke with Dr. Short (hospitalist, [facility]) who agrees to admit the patient for ongoing management pending outstanding studies Case reviewed with ED attending Dr. Newberry who is agreeable with this plan Impression Acute hyponatremia, COVID-19 Discharge Plan Visit Data Chief Complaint: Flu Like Symptoms Stated Complaint: NAUSEA, COUGH - COVID+ LAST WEEK ED Provider: Aric Newberry ED Midlevel Provider: Haile Hinds Discharge Problem: Acute hyponatremia, COVID-19 Patient Disposition: Admitted As Inpatient Condition: Fair Discharge Instructions Interventions: ED Discharge Assessment Last Done: 03/09/23 13:00
[2023-03-09] MEDS ORDERED: SODIUM CHLORIDE 0.9% 1,000 ML IV STA (08:05)
[2023-03-09] MEDS ORDERED: ACETAMINOPHEN 1,000 MG/100 ML VIAL IV STA (08:15)
[2023-03-09] MEDS ORDERED: FAMOTIDINE 20MG IV PUSH 20 MG/5 ML SYR IV STA (08:15)
[2023-03-09] MEDS ORDERED: ALBUTEROL 0.083% NEBU SOLN 3 ML VIAL NEB STA (08:15)
[2023-03-09] MEDS ORDERED: DEXTROMETHORPHAN POLYMR COMPLX 60 MG/10 ML UDP PO STA (08:15)
[2023-03-09] MEDS ORDERED: ONDANSETRON INJ 2 MG/ML 2 ML VIAL IV STA (08:15)
[2023-03-09 09:27] LABS: Basophils # (auto) 0.02 K/uL (0.00-0.20); Basophils % (auto) 0.3 %; Eosinophils # (auto) 0.06 K/uL (0.00-0.50); Eosinophils % (auto) 0.9 %; Immature Granulocytes # (auto) 0.03 K/uL (0.01-0.20); Immature Granulocytes % (auto) 0.4 %; Lymphocytes % (auto) 21.8 %; Mean Corpuscular Hemoglobin 31.1 pg (25.0-34.0); Mean Corpuscular Hgb Conc 36.1 g/dL (32.0-36.0); Mean Corpuscular Volume 86.1 fL (80.0-100.0); Mean Platelet Volume 11.2 fL (9.4-12.4); Monocytes # (auto) 0.82 K/uL (0.11-0.59); Monocytes % (auto) 11.9 %; Neutrophils # (auto) 4.46 K/uL (1.40-6.50); Neutrophils % (auto) 64.7 %; Platelet Count 193 K/uL (130-400); RDW Coefficient of Variation 13.1 % (11.5-14.5); RDW Standard Deviation 41.1 fL (36.4-46.3); Red Blood Count 4.18 M/uL (4.20-5.40); White Blood Count 6.89 K/ul (4.8-10.8)
[2023-03-09 09:37] LABS: Albumin Globulin Ratio 1.5 (0.9-2); BUN Creatinine Ratio 14.6 (10-20); Calcium 9.1 mg/dl (8.6-10.3); Creatinine Clr Calc Pharmacy 57.3 ml/min; Est GFR (African American) 77.8 ml/min; Est GFR (Non-African American) 67.1 ml/min; Globulin 2.6 gm/dl (2.5-4.0); Potassium 3.7 mmol/L (3.5-5.1); Total Protein 6.6 gm/dl (6.0-8.3)
[2023-03-09 09:43] LABS: Troponin I High Sensitivity 11.3 pg/ml (0-14)
--- NOTE | 2023-03-09 10:00 | Emergency Department Note ---
ED Visit Note I was consulted by the Advanced Practice Provider. The case was discussed at length. I personally made/approved the management plan and take responsibility for the patient management. I performed a substantive portion of the visit. This includes the aspects of: [-MDM] Patient has a recent diagnosis of COVID. She presents with vomiting and jorge rrhea. She feels quite washed out. Patient was found to be hyponatremic. Given the circumstances and findings, hospitalization is indicated. .
[2023-03-09] MEDS ORDERED: HYDROCORTISONE SOD SUCCINATE 100 MG/2 ML VIAL IV STA (10:39)
--- NOTE | 2023-03-09 10:41 | History & Physical Report ---
Date of Service March 09, 2023 Assessment & Plan (1) COVID-19: Plan: Pt with covid sx of sore throat and fatigue 9 days prior to admission,Testing positive for COVID with marked GI symptoms. At this point in time she is not hypoxic nor does she have significant chest x-ray changes subsequently does not qualify for treatment with remdesivir as >7 from sx onset treat covid with supportive care at this time Because of her previous history of bowel resection due to diverticular abscess we will check a CT scan abdomen pelvis with oral contrast. recent biopsy of IPMN with [facility] nause and vomiting with epigastric pain , iv pepcid incidentally family covid + after thanksgiving pt negative with home test (2) Acute hyponatremia: Plan: Patient with acute hyponatremia. check serum and urine osm, urine random sodium, clinically euvoluemic Patient will receive 100 mL of 3% normal saline she been a fluid restriction we will recheck electrolytes in the afternoon and daily Hyponatremia likely contributed to metabolic encephalopathy and weakness. (3) Chronic kidney disease, stage III (moderate): Plan: Patient is chronic kidney disease stage III this is currently stable at this time. Chronic stable hypertension typically treated lisinopril, lisinopril is on hold at this time (4) PMR (polymyalgia rheumatica): Plan: pt is no longer taking prednisone daily takes hydrocodone for pain, will be held with current nasuea headache and bodyaches, has not had relief with iv tylenol, morphine with nausea, ordered hydromorphone Plan Lovenox for DVT prevention pt is a full code History of Present Illness Primary Care Provider: Marcos Sarabia MD 82-year-old female presents to the ER with nausea vomiting and diagnosis of COVID infection. Chronically takes steroids for polymyalgia rheumatica. Has a sodium of 123 and feels markedly fatigued. Has had a low-grade fever at home. Has not been able to keep things down for 2 days. This has been accompanied with diarrhea. Patient has a history of previous colon resection for diverticular abscess. Also incidentally noted IPMN on previous images Allergies Allergy/AdvReac Type Severity Reaction Status Date / Time metoclopramide Allergy Severe seizure-like Verified 03/09/23 11:09 activity prochlorperazine Allergy Severe seizure-like Verified 03/09/23 11:09 activity sulfamethoxazole Allergy Severe Nausea Verified 03/09/23 11:09 [From Bactrim] trimethoprim [From Bactrim] Allergy Severe Nausea Verified 03/09/23 11:09 ciprofloxacin Allergy Intermediate rash Verified 03/09/23 11:09 indomethacin Allergy Intermediate nausea Verified 03/09/23 11:09 metronidazole Allergy Intermediate rash Verified 03/09/23 11:09 olmesartan Allergy Mild Itching Verified 03/09/23 11:09 Home Medications Medication Instructions Recorded Confirmed Type cholecalciferol (vitamin D3) 50 2,000 unit PO HS 05/27/18 03/09/23 History mcg (2,000 unit) tablet (Vitamin D3) cranberry 400 mg capsule 800 mg PO HS 10/03/21 03/09/23 History atorvastatin 10 mg tablet 10 mg PO HS #90 tabs 03/28/22 03/09/23 Rx coenzyme Q10 100 mg capsule (Co 100 mg PO HS 08/08/22 03/09/23 History Q-10) acetaminophen 500 mg tablet 1,000 mg PO TID PRN pain 10/02/22 03/09/23 History (Tylenol Extra Strength) methenamine hippurate 1 gram tablet 1 g PO HS #90 tabs 02/18/23 03/09/23 Rx hydrocodone 5 mg-acetaminophen 325 1 tab PO DAILY PRN pain #30 tabs 02/25/23 03/09/23 Rx mg tablet lisinopril 20 mg tablet 20 mg PO HS 03/09/23 03/09/23 History Past Med/Surg History Medical History Hip bursitis, left Arthritis of left hip Pancreatic cyst monitoring History of COVID-19 08/2021, tested at [facility], not hosp; having UTI symptoms, "felt sick went to the ER,">resolved Frequent urinary tract infections takes maintenance Macrobid daily Obesity Fatty liver Hypertension controlled, stable per pt Chronic kidney disease, stage III (moderate) Kidney stone hx History of diverticulitis last flare-06/2022 PMR (polymyalgia rheumatica) on prednisone taper for myalgias and arthralgias Hyperlipemia Surgical History History of knee replacement Status post total left knee replacement 08/20/2022 Hx of basal cell carcinoma excision R eyelid Status post right knee replacement R TKA L4-L5 1 attempt + PNB. History of cataract surgery R/L History of colonoscopy History of colon resection 05/2013/ diverticulitis History of bilateral oophorectomies History of hysterectomy History of appendectomy History of cholecystectomy Family History Sister Rheumatoid arthritis Breast cancer Other Diabetes Family history of kidney disease Hypertension Denies family history of Ovarian cancer Prostate cancer Myocardial infarction Colorectal cancer Social History Smoking Status: Never smoker Second Hand Exposure: No; Do You Dip or Chew Tobacco: No; Hx Alcohol Use: Yes (Rarely ) Hx Substance Use: No Preferred Language: Palestinian Communication Ability: Effective Visual Impairment: No Limitations Hearing Ability: Normal Edi Programmer Analyst Required: No Beliefs That Will Affect Care: None marital status: Current Living Situation: Spouse current occupational status: retired Feels Safe at Home: Yes Childhood Exposure to Second-Hand Smoke: Yes Dental Care, Regularly: Yes Physical Activity Frequency: 3-4 Times per Week Seatbelt Use: always Sunscreen Use: Yes Assistive Devices: Walker Review of Systems Review of Systems: Mild distress and fatigue no headache, no visual changes no speech or swallowing issues no chest pain, pressure or palpitations no shortness of breath, non productive cough no wheezes epigastric abdominal pain, nausea and vomiting, diarrhea no melena no focal joint pain or swelling no back pain, CVA tenderness or radicular pain no bruising, bleeding or rashes no focal signs of weakness or numbness or altered sensation no complaints of anxiety or depression.. Physical Exam Physical Exam: The patient appeared well nourished and normally developed. Vital signs as documented. Head exam is normocephalic atraumatic Neck is without JVD, thyromegaly, or carotid bruits. Lungs are clear to auscultation, no focal loss of breath sounds Cardiac exam, Rhythm is regular.. No murmurs, rubs or gallops. Abdominal exam reveals normal bowel sounds, soft epigastric tenderness and ruq tenderness no rebound no guarding Extremities are nonedematous and both pedal pulses are present Neurologic exam is alert and oriented, no focal loss of strength or sensation Skin is without bruises or rashes Psychologically is without concerns for anxiety or depression.. Results & Data Results & Data Vital Signs (Past 12 Hours) Vital Signs Temp Pulse Resp BP Pulse Ox O2 Del Method 03/09/23 09:06 79 03/09/23 07:54 97.5 F L 98 H 18 113/73 96 Room Air Code Status & VTE Plan VTE Prophylaxis Plan VTE Prophylaxis will be ordered: Yes PG Care Time/CCT Total # of Minutes Spent Total Time Spent with Patient: Total time spent is greater than 50% in coordination of care (as documented) at patient's floor/unit and/or counseling patient: Coding Level of Care Code 97242 INT INP/OBS CARE 3/75MIN Diagnoses COVID-19 U07.1 Acute hyponatremia E87.1 Chronic kidney disease, stage III (moderate) N18.3 PMR (polymyalgia rheumatica) M35.3
[2023-03-09 11:05] LABS: Appearance Urine Clear (Clear); Bacteria Urine Automated Negative (Negative); Bilirubin Urine Negative (Negative); Blood Urine Negative (Negative); Color Urine Orange; Epithelial Cell Urine Auto >30 /lpf (0-5); Glucose Urine UA Negative (Negative); Ketones Urine Negative (Negative); Leukocyte Esterase Urine Trace (Negative); Nitrite Urine Negative (Negative); Protein Urine Negative (Negative); RBC Urine Automated 0-4 /hpf (0-4); Specific Gravity Urine 1.008 (1.000-1.030); Urobilinogen Urine Negative (Negative); pH Urine 6.5 (4.5-7.5)
[2023-03-09] MEDS ORDERED: HYDROmorphone INJ 0.5 MG/0.5 ML SYR IV PRN (11:06)
[2023-03-09] MEDS ORDERED: HYDROmorphone INJ 0.5 MG/0.5 ML SYR IV STA (11:14)
[2023-03-09] MEDS ORDERED: STAT IV/IM STA (12:59)
[2023-03-09] MEDS ORDERED: ZOLPIDEM TARTRATE 5 MG TAB PO PRN (12:59)
[2023-03-09] MEDS ORDERED: FAMOTIDINE 20 MG in SYRINGE 3 ML IV ONE (12:59)
[2023-03-09] MEDS ORDERED: SODIUM CHLORIDE 3 % 100 ML IV ONE (12:59)
--- NOTE | 2023-03-09 13:26 | CT Scan Report ---
CT OF THE ABDOMEN AND PELVIS WITH ORAL CONTRAST CLINICAL HISTORY: Nausea and vomiting. History of colon resection. COMPARISON STUDY: CT of the abdomen and pelvis March 15, 2022. MRI of the abdomen May 07, 2022. TECHNIQUE: Axial images of the abdomen and pelvis were obtained without IV contrast. Oral contrast wa s administered. Automated exposure control was utilized for the study. A dose lowering technique was utilized adhering to the principles of ALARA. FINDINGS: Lung bases are unremarkable. No pneumatosis, free air or portal venous gas is present. Mult iple hepatic cysts measure up to 7.9 cm. There is hepatic steatosis with focal sparing within the med ial segment of the left hepatic lobe. The spleen, adrenal glands and kidneys are unremarkable unenhan ilene exam. There is no hydronephrosis. There are no urinary calculi. Pancreatic ductal dilatation is s imilar to CT of March 15, 2022 and MRI of May 07, 2022 multiple parenchymal calcifications measure up to 1 cm. Intraductal calculi cannot be excluded. There is no peripancreatic infiltration or fluid. Sigmoid resection is noted. No evidence for a bowel obstruction. There is colonic diverticulosis wit hout evidence for acute diverticulitis. The appendix is not visualized. There is no right lower quadr ant inflammation. There is no lymphadenopathy. IMPRESSION: 1. No acute process within the abdomen or pelvis on unenhanced exam. No bowel obstruction status post sigmoid resection. 2. Colonic diverticulosis. No evidence for acute diverticulitis. 3. Multiple hepatic cysts. 4. Pancreatic ductal dilatation with several pancreatic calcifications, similar in appearance to CT o f March 15, 2022 and MRI of May 07, 2022. This could be reassessed with a follow-up MRI in 6 months to ensure continued stability. ACT 112: Negative or not required by law. Electronically signed by: Primitivo Eubanks M.D. 03/09/2023 1:25 PM
[2023-03-09] MEDS: ENOXAPARIN INJ 40 MG/0.4 ML SYR SQ SCH (14:26)
--- NOTE | 2023-03-09 14:42 | Electrocardiogram Report ---
Test Reason : Blood Pressure : / mmHG Vent. Rate : 079 BPM Atrial Rate : 079 BPM P-R Int : 220 ms QRS Dur : 102 ms QT Int : 388 ms P-R-T Axes : 052 -46 059 degrees QTc Int : 444 ms Sinus rhythm with 1st degree A-V block Left anterior fascicular block Moderate voltage criteria for LVH, may be normal variant ( R in aVL , Wero product ) Possible Old Lateral infarct (cited on or before 11-DEC-2020) Abnormal ECG When compared with ECG of 11-AUG-2022 13:42, No significant change was found Confirmed by Ba Sanchez ([id number]) on 03/09/2023 2:41:44 PM Referred By: REFERRED SELF Confirmed By:Ba Sanchez
[2023-03-09] MEDS ORDERED: HYDROCORTISONE SOD SUCCINATE 100 MG/2 ML VIAL IV SCH (15:00)
[2023-03-09] MEDS ORDERED: HYDROCORTISONE SOD 50 MG in SYRINGE 0 ML IV SCH (15:00)
[2023-03-09] MEDS: HYDROmorphone INJ 1 MG/ML SYRINGE IV PRN (15:56)
[2023-03-09] MEDS: ONDANSETRON INJ 2 MG/ML 2 ML VIAL IV PRN (19:04)
[2023-03-09] MEDS: FAMOTIDINE 20 MG in SYRINGE 3 ML IV SCH (20:18)
[2023-03-10 00:42] LABS: Calcium 8.6 mg/dl (8.6-10.3); Creatinine Clr Calc Pharmacy 62.7 ml/min; Est GFR (African American) 86.6 ml/min; Est GFR (Non-African American) 74.8 ml/min; Potassium 3.7 mmol/L (3.5-5.1)
[2023-03-10] MEDS: ATORVASTATIN 10 MG TAB PO SCH ×2 (00:51→20:27)
[2023-03-10] MEDS: HYDROmorphone INJ 1 MG/ML SYRINGE IV PRN (00:51)
[2023-03-10] MEDS: ONDANSETRON INJ 2 MG/ML 2 ML VIAL IV PRN ×2 (00:58→13:12)
[2023-03-10] MEDS: ACETAMINOPHEN 500 MG TAB PO PRN ×2 (03:40→11:39)
[2023-03-10 06:34] LABS: Albumin Globulin Ratio 1.5 (0.9-2); Albumin Level 3.5 gm/dl (3.4-5.0); BUN Creatinine Ratio 15.2 (10-20); Bilirubin,Total 0.9 mg/dl (0.2-1.0); Calcium 8.5 mg/dl (8.6-10.3); Creatinine Clr Calc Pharmacy 59.5 ml/min; Est GFR (African American) 81.4 ml/min; Est GFR (Non-African American) 70.2 ml/min; Globulin 2.3 gm/dl (2.5-4.0); Magnesium 1.6 mg/dl (1.7-2.4); Potassium 3.8 mmol/L (3.5-5.1); Total Protein 5.8 gm/dl (6.0-8.3)
--- NOTE | 2023-03-10 06:54 | XRay Report ---
SINGLE VIEW CHEST CLINICAL HISTORY: Cough. Covid. FINDINGS: An AP, portable, upright chest radiograph is compared to study dated 10/02/2022 and correlat ed with chest CT dated 01/24/2016. The heart is mildly enlarged noting atherosclerotic calcification of the thoracic aorta. The pulmonary vasculature is noncongested. Chronic interstitial thickening is similar to previous. The lungs and pleural spaces are clear. No pneumothorax is seen. The skeletal st ructures are osteopenic. The bony thorax is grossly intact. IMPRESSION: No active disease in the chest. ACT 112: Negative or not required by law. Electronically signed by: Aric Galloway M.D. 03/10/2023 6:53 AM
[2023-03-10] MEDS: FAMOTIDINE 20 MG in SYRINGE 3 ML IV SCH ×2 (08:39→20:27)
[2023-03-10] MEDS: ENOXAPARIN INJ 40 MG/0.4 ML SYR SQ SCH (13:09)
--- NOTE | 2023-03-10 16:31 | Nephrology Consultation ---
Date of Consultation March 10, 2023 Assessment & Plan (1) Chronic hyponatremia: Chronic moderate to severe hyponatremia. Hypovolemic to euvolemic. 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 Symptoms include headache and nausea which are likely related to COVID infection. Sodium has not been updated since this AM. Stat sodium was ordered this afternoon. Replacement with hypertonic saline will coordinated as needed. Follow up labs ordered for this evening. I reviewed the plan of care with Dr. Brooks. She will update the overnight team. Goal rate of correction is ~0.5 mmol/L/hr to a max of 12 mmol/L in the next 24 hours. Repeat serum metabolic profile tomorrow AM. Check urine osmolality in the AM. Document strict I/O's. (2) COVID-19: Management per hospitalist team. I will defer consideration for IV steroids to the hospitalist service. (3) Hypertension: Lisinopril held. BP acceptable. History of Present Illness Reason for Consultation: Hyponatremia Requesting Physician: Rachel Brooks MD Attending Physician: Rachel Brooks MD History of Present Illness Mrs. Fela Hoover is an 82 year-old female with chronic hyponatremia, hypertension, and PMR admitted to [facility] yesterday with nausea, vomiting, and weakness. She is positive for COVID. Laboratory evaluation notable for a serum sodium of 123 mmol/L. Baseline creatinine ~130-135 mmol/L. Serum creatinine <1 mg/dL. Electrolytes otherwise normal. Urine osmolality 235 mOsm/L on admission. Fela was given 1000 ml of 0.9% saline and a bolus of 100 ml 3% saline yesterday. Serum sodium remained stable at 123 mmol/L this AM. Nephrology consultation requested by Dr. Brooks this afternoon for management of hyponatremia. I called Dr. Brooks to review the plan of care this evening. The patient has received no additional sodium replacement throughout the day. She is not currently on a fluid restriction. She is not being treated with diuretics. She does not consume diuretics at home. She is not taking steroids of a regular basis at home. Hydrocortisone was provided yesterday. She is being medicated for nausea and pain with Dilaudid, Tylenol, and Zofran. Fela has had a persistent headache and nausea. Appetite remains very poor. She denies diarrhea. She is breathing comfortably. She remains afebrile. Allergies Allergy/AdvReac Type Severity Reaction Status Date / Time metoclopramide Allergy Severe seizure-like Verified 03/09/23 11:09 activity prochlorperazine Allergy Severe seizure-like Verified 03/09/23 11:09 activity sulfamethoxazole Allergy Severe Nausea Verified 03/09/23 11:09 [From Bactrim] trimethoprim [From Bactrim] Allergy Severe Nausea Verified 03/09/23 11:09 ciprofloxacin Allergy Intermediate rash Verified 03/09/23 11:09 indomethacin Allergy Intermediate nausea Verified 03/09/23 11:09 metronidazole Allergy Intermediate rash Verified 03/09/23 11:09 olmesartan Allergy Mild Itching Verified 03/09/23 11:09 Home Medications Medication Instructions Recorded Confirmed Type cholecalciferol (vitamin D3) 50 2,000 unit PO HS 05/27/18 03/09/23 History mcg (2,000 unit) tablet (Vitamin D3) cranberry 400 mg capsule 800 mg PO HS 10/03/21 03/09/23 History atorvastatin 10 mg tablet 10 mg PO HS #90 tabs 03/28/22 03/09/23 Rx coenzyme Q10 100 mg capsule (Co 100 mg PO HS 08/08/22 03/09/23 History Q-10) acetaminophen 500 mg tablet 1,000 mg PO TID PRN pain 10/02/22 03/09/23 History (Tylenol Extra Strength) methenamine hippurate 1 gram tablet 1 g PO HS #90 tabs 02/18/23 03/09/23 Rx hydrocodone 5 mg-acetaminophen 325 1 tab PO DAILY PRN pain #30 tabs 02/25/23 03/09/23 Rx mg tablet lisinopril 20 mg tablet 20 mg PO HS 03/09/23 03/09/23 History Patient History Medical History Hip bursitis, left Arthritis of left hip Pancreatic cyst monitoring History of COVID-19 08/2021, tested at [facility], not hosp; having UTI symptoms, "felt sick went to the ER,">resolved Frequent urinary tract infections takes maintenance Macrobid daily Obesity Fatty liver Hypertension controlled, stable per pt Chronic kidney disease, stage III (moderate) Kidney stone hx History of diverticulitis last flare-06/2022 PMR (polymyalgia rheumatica) on prednisone taper for myalgias and arthralgias Hyperlipemia Surgical History History of knee replacement Status post total left knee replacement 08/20/2022 Hx of basal cell carcinoma excision R eyelid Status post right knee replacement R TKA L4-L5 1 attempt + PNB. History of cataract surgery R/L History of colonoscopy History of colon resection 05/2013 diverticulitis History of bilateral oophorectomies History of hysterectomy History of appendectomy History of cholecystectomy Family History Sister Rheumatoid arthritis Breast cancer Other Diabetes Family history of kidney disease Hypertension Denies family history of Ovarian cancer Prostate cancer Myocardial infarction Colorectal cancer Social History Smoking Status: Never smoker Second Hand Exposure: No; Do You Dip or Chew Tobacco: No; Hx Alcohol Use: Yes Hx Substance Use: No Preferred Language: Tajik Communication Ability: Effective Visual Impairment: No Limitations Hearing Ability: Normal Gun Fertilizer Required: No Beliefs That Will Affect Care: None marital status: Current Living Situation: Spouse current occupational status: retired Other Information That Helps Us Care for You: No Feels Safe at Home: Yes Childhood Exposure to Second-Hand Smoke: Yes Dental Care, Regularly: Yes Physical Activity Frequency: 3-4 Times per Week Seatbelt Use: always Sunscreen Use: Yes Assistive Devices: Walker Review of Systems Review of Systems: All systems reviewed & are unremarkable except as noted in HPI & below Physical Exam Constitutional: well developed; no acute distress Eyes: no scleral abnormality and no corneal abnormality ENMT: Mouth: no oral mucosal abnormality and oral mucous membranes not dry Neck: normal visual inspection and trachea midline Respiratory: normal respiratory effort Auscultation: lungs clear to auscultation bilaterally Cardiovascular: Rate/Rhythm: regular rate Heart Sounds: normal S1 and normal S2 Extremities: no edema Musculoskeletal: Extremities: no cyanosis and no clubbing Skin: normal turgor; no lesions Neurologic: Motor/Sensory: no tremor and no asterixis Psychiatric: Orientation: alert and oriented x 3 Results & Data Vital Signs (Past 12 Hours) Vital Signs Pulse Pulse Resp BP Pulse Ox Pulse Ox O2 Del Method 03/10/23 15:56 76 18 153/85 H 97 Room Air 03/10/23 14:57 96 03/10/23 08:21 97 03/10/23 07:20 72 03/10/23 05:11 59 L 18 156/84 H 98 Room Air O2 Del Method 03/10/23 15:56 03/10/23 14:57 Room Air 03/10/23 08:21 Room Air 03/10/23 07:20 03/10/23 05:11 Laboratory Results Laboratory Results - last 24 hr 03/10/23 03/10/23 00:14 05:55 Sodium 124 L 123 L Potassium 3.7 3.8 Chloride 94 L 93 L Carbon Dioxide 22 25 Anion Gap 8 5 BUN 12 12 Creatinine 0.75 0.79 Est Cr Clr Drug Dosing 62.7 59.5 Est GFR ( Amer) 86.6 81.4 Est GFR (Non-Af Amer) 74.8 70.2 BUN/Creatinine Ratio 16.0 15.2 Glucose 120 H 108 H Calcium 8.6 8.5 L Magnesium 1.6 L Total Bilirubin 0.9 AST 15 ALT 15 Alkaline Phosphatase 49 Total Protein 5.8 L Albumin 3.5 Globulin 2.3 L Albumin/Globulin Ratio 1.[address] OF THE ABDOMEN AND PELVIS WITH ORAL CONTRAST COMPARISON STUDY: CT of the abdomen and pelvis March 15, 2022. MRI of the abdomen May 07, 2022. TECHNIQUE: Axial images of the abdomen and pelvis were obtained without IV contrast. Oral contrast was administered. Automated exposure control was utilized for the study. A dose lowering technique was utilized adhering to the principles of ALARA. FINDINGS: Lung bases are unremarkable. No pneumatosis, free air or portal venous gas is present. Multiple hepatic cysts measure up to 7.9 cm. There is hepatic steatosis with focal sparing within the medial segment of the left hepatic lobe. The spleen, adrenal glands and kidneys are unremarkable unenhanced exam. There is no hydronephrosis. There are no urinary calculi. Pancreatic ductal dilatation is similar to CT of March 15, 2022 and MRI of May 07, 2022 multiple parenchymal calcifications measure up to 1 cm. Intraductal calculi cannot be excluded. There is no peripancreatic infiltration or fluid. Sigmoid resection is noted. No evidence for a bowel obstruction. There is colonic diverticulosis without evidence for acute diverticulitis. The appendix is not visualized. There is no right lower quadrant inflammation. There is no lymphadenopathy. IMPRESSION: 1. No acute process within the abdomen or pelvis on unenhanced exam. No bowel obstruction status post sigmoid resection. 2. Colonic diverticulosis. No evidence for acute diverticulitis. 3. Multiple hepatic cysts. 4. Pancreatic ductal dilatation with several pancreatic calcifications, similar in appearance to CT of March 15, 2022 and MRI of May 07, 2022. This could be reassessed with a follow-up MRI in 6 months to ensure continued stability. SINGLE VIEW CHEST FINDINGS: An AP, portable, upright chest radiograph is compared to study dated 10/02/2022 and correlated with chest CT dated 01/24/2016. The heart is mildly enlarged noting atherosclerotic calcification of the thoracic aorta. The pulmonary vasculature is noncongested. Chronic interstitial thickening is similar to previous. The lungs and pleural spaces are clear. No pneumothorax is seen. The skeletal structures are osteopenic. The bony thorax is grossly intact. IMPRESSION: No active disease in the chest. PG Care Time/CCT Total # of Minutes Spent Total Time Spent with Patient: Total time spent is greater than 50% in coordination of care (as documented) at patient's floor/unit and/or counseling patient: Coding Level of Care Code 09696 IN/OBS CONSULT LVL 4,60M Diagnoses Chronic hyponatremia E87.1 COVID-19 U07.1 Hypertension I10
[2023-03-10] MEDS ORDERED: oxyCODONE HCL IR 5 MG TAB (IMMEDIATE RELEASE) PO STA (17:50)
[2023-03-10 17:52] LABS: BUN Creatinine Ratio 12.9 (10-20); Calcium 8.8 mg/dl (8.6-10.3); Creatinine Clr Calc Pharmacy 55.3 ml/min; Est GFR (African American) 74.5 ml/min; Est GFR (Non-African American) 64.3 ml/min; Potassium 3.6 mmol/L (3.5-5.1)
[2023-03-10] MEDS ORDERED: STAT IV/IM STA ×2 (17:53→23:08)
[2023-03-10] MEDS ORDERED: SODIUM CHLORIDE 3 % 150 ML IV ONE ×2 (17:53→23:08)
--- NOTE | 2023-03-10 19:13 | Hospitalist Progress Note ---
Date of Service March 10, 2023 Assessment & Plan (1) COVID-19: Plan: Pt with covid sx of sore throat and fatigue 9 days prior to admission,Testing positive for COVID with marked GI symptoms. At this point in time she is not hypoxic nor does she have significant chest x-ray changes subsequently does not qualify for treatment with remdesivir as >7 from sx onset treat covid with supportive care at this time nause and vomiting with epigastric pain , iv pepcid. CT abdomen showed no acute process although pancreatic ductal dilatation was seen. This could be reassessed with a follow-up MRI in 6 months to ensure continued stability. incidentally family covid + after thanksgiving pt negative with home test (2) Acute hyponatremia: Plan: Acute on chronic hyponatremia. Sodium has not improved despite 100 mL of 3% normal saline. Nephrology consulted. Patient will be given further doses of hypertonic saline and repeat sodium has been ordered for 10 PM tonight by nephrology. Communicated with the cross cover team to follow-up on the sodium results tonight. (3) Chronic kidney disease, stage III (moderate): Plan: Patient is chronic kidney disease stage III this is currently stable at this time. Chronic stable hypertension typically treated lisinopril, lisinopril is on hold at this time (4) PMR (polymyalgia rheumatica): Plan: pt is no longer taking prednisone daily takes hydrocodone for pain, will be held with current nasuea headache and bodyaches: Ordered a dose of oxycodone Plan Lovenox for DVT prevention pt is a full code Admission and Anticipated Discharge Date Admission Date: March 09, 2023 Subjective Patient continues to feel nauseous. No diarrhea. She says that she is just not feeling well because of the nausea. Review of Systems Review of Systems: All systems reviewed & are unremarkable except as noted in Subjective Physical Exam Physical Exam: General: Awake, conversant Heart: S1, S2/regular rate and rhythm, no murmur rubs or gallops Lungs: Clear to auscultation bilaterally. Normal effort Abdomen: Soft/nontender/nondistended. No hepatosplenomegaly Extremities: No clubbing/cyanosis. No edema Behavior: Appropriate, cooperative Results & Data Results & Data Vital Signs (Past 12 Hours) Vital Signs Pulse Pulse Resp BP Pulse Ox Pulse Ox O2 Del Method 03/10/23 17:13 70 03/10/23 15:56 76 18 153/85 H 97 Room Air 03/10/23 14:57 96 03/10/23 08:21 97 03/10/23 07:20 72 O2 Del Method 03/10/23 17:13 03/10/23 15:56 03/10/23 14:57 Room Air 03/10/23 08:21 Room Air 03/10/23 07:20 Laboratory Results Abnormal lab results 03/10/23 03/10/23 03/10/23 Range/Units 00:14 05:55 17:09 Sodium 124 L 123 L 122 L (136-145) mmol/L Chloride 94 L 93 L 92 L (98-107) mmol/L Glucose 120 H 108 H 111 H (70-99(Fasting)) mg/dl Calcium 8.5 L (8.6-10.3) mg/dl Magnesium 1.6 L (1.7-2.4) mg/dl Total Protein 5.8 L (6.0-8.3) gm/dl Globulin 2.3 L (2.5-4.0) gm/dl Diagnostic Findings Chest X-Ray 03/09/23 08:15 SINGLE VIEW CHEST CLINICAL HISTORY: Cough. Covid. FINDINGS: An AP, portable, upright chest radiograph is compared to study dated 10/02/2022 and correlated with chest CT dated 01/24/2016. The heart is mildly enlarged noting atherosclerotic calcification of the thoracic aorta. The pulmonary vasculature is noncongested. Chronic interstitial thickening is similar to previous. The lungs and pleural spaces are clear. No pneumothorax is seen. The skeletal structures are osteopenic. The bony thorax is grossly intact. IMPRESSION: No active disease in the chest. ACT 112: Negative or not required by law. Electronically signed by: Aric Galloway M.D. 03/10/2023 6:53 AM PG Care Time/CCT Total # of Minutes Spent Total Time Spent with Patient: Total time spent is greater than 50% in coordination of care (as documented) at patient's floor/unit and/or counseling patient: Coding Level of Care Code 99250 SUB INP/OBS CARE 2/35MIN Diagnoses COVID-19 U07.1 Acute hyponatremia E87.1 Chronic kidney disease, stage III (moderate) N18.3 PMR (polymyalgia rheumatica) M35.3
[2023-03-10] MEDS ORDERED: MoRPHine SULFATE 4 MG/ML 1 ML CARP\\VIAL IV PRN (22:43)
[2023-03-11] MEDS: MoRPHine SULFATE 2 MG/ML CARP IV PRN
[2023-03-11] MEDS: ONDANSETRON INJ 2 MG/ML 2 ML VIAL IV PRN
[2023-03-11 07:03] LABS: Albumin Globulin Ratio 1.6 (0.9-2); Albumin Level 3.4 gm/dl (3.4-5.0); BUN Creatinine Ratio 12.2 (10-20); Bilirubin,Total 1.1 mg/dl (0.2-1.0); Calcium 8.5 mg/dl (8.6-10.3); Creatinine Clr Calc Pharmacy 57.3 ml/min; Est GFR (African American) 77.8 ml/min; Est GFR (Non-African American) 67.1 ml/min; Globulin 2.1 gm/dl (2.5-4.0); Magnesium 1.6 mg/dl (1.7-2.4); Potassium 3.7 mmol/L (3.5-5.1); Total Protein 5.5 gm/dl (6.0-8.3)
[2023-03-11] MEDS: FAMOTIDINE 20 MG in SYRINGE 3 ML IV SCH ×2 (08:37→20:41)
[2023-03-11] MEDS ORDERED: POTASSIUM CHLORIDE 10 MEQ TABCR PO STA (08:45)
[2023-03-11] MEDS: MAGNESIUM SULFATE / D5W 1 GM/100 ML BAG IV SCH ×2 (09:06→11:05)
--- NOTE | 2023-03-11 12:39 | Nephrology Progress Note ---
Date of Service March 11, 2023 Assessment & Plan (1) Chronic hyponatremia: Plan: Chronic moderate to severe hyponatremia. Hypovolemic to euvolemic. 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 Symptoms include headache and nausea which are likely related to COVID infection. Sodium is improving appropriately with therapy. Hypertonic saline provided overnight. Repeat sodium this afternoon. Updated urine osmolality requested. Oral KCl and IV magnesium provided this AM. Document strict I/O's. (2) COVID-19: Plan: Management per hospitalist team. Symptoms persist. (3) Hypertension: Plan: Lisinopril held. BP acceptable. Admission and Anticipated Discharge Date Admission Date: March 09, 2023 Subjective No acute events overnight. Generalized malaise persists. Nausea and decreased appetite. Cough. No shortness of breath. No fevers but some chills. No fluid retention or edema. Review of Systems Review of Systems: All systems reviewed & are unremarkable except as noted in HPI & below Physical Exam Constitutional: well developed; no acute distress Eyes: no scleral abnormality and no corneal abnormality ENMT: Mouth: no oral mucosal abnormality and oral mucous membranes not dry Neck: normal visual inspection and trachea midline Respiratory: normal respiratory effort Auscultation: lungs clear to auscultation bilaterally Cardiovascular: Rate/Rhythm: regular rate Heart Sounds: normal S1 and normal S2 Extremities: no edema Musculoskeletal: Extremities: no cyanosis and no clubbing Skin: normal turgor; no lesions Neurologic: Motor/Sensory: no tremor and no asterixis Psychiatric: Orientation: alert and oriented x 3 Results & Data Vital Signs (Past 12 Hours) Vital Signs Pulse Pulse Resp BP BP Pulse Ox Pulse Ox 03/11/23 10:13 93 H 18 98 03/11/23 08:00 97 03/11/23 07:26 79 15 163/93 H 98 03/11/23 07:13 58 L 03/11/23 07:00 57 L 16 163/93 H 97 03/11/23 05:27 68 20 144/78 H 98 03/11/23 04:20 60 03/11/23 02:00 83 17 O2 Del Method O2 Del Method 03/11/23 10:13 Room Air 03/11/23 08:00 Room Air 03/11/23 07:26 Room Air 03/11/23 07:13 03/11/23 07:00 Room Air 03/11/23 05:27 Room Air 03/11/23 04:20 03/11/23 02:00 Laboratory Results Laboratory Results - last 24 hr 03/10/23 03/10/23 03/11/23 17:09 22:25 02:00 Sodium 122 L 125 L 127 L Potassium 3.6 Chloride 92 L Carbon Dioxide 21 Anion Gap 9 BUN 11 Creatinine 0.85 Est Cr Clr Drug Dosing 55.3 Est GFR ( Amer) 74.5 Est GFR (Non-Af Amer) 64.3 BUN/Creatinine Ratio 12.9 Glucose 111 H Calcium 8.8 Magnesium Total Bilirubin AST ALT Alkaline Phosphatase Total Protein Albumin Globulin Albumin/Globulin Ratio 03/11/23 06:18 Sodium 129 L Potassium 3.7 Chloride 99 Carbon Dioxide 23 Anion Gap 7 BUN 10 Creatinine 0.82 Est Cr Clr Drug Dosing 57.3 Est GFR ( Amer) 77.8 Est GFR (Non-Af Amer) 67.1 BUN/Creatinine Ratio 12.2 Glucose 91 Calcium 8.5 L Magnesium 1.6 L Total Bilirubin 1.1 H AST 17 ALT 16 Alkaline Phosphatase 46 Total Protein 5.5 L Albumin 3.4 Globulin 2.1 L Albumin/Globulin Ratio 1.6 PG Care Time/CCT Total # of Minutes Spent Total Time Spent with Patient: Total time spent is greater than 50% in coordination of care (as documented) at patient's floor/unit and/or counseling patient: Coding Level of Care Code 32500 SUB INP/OBS CARE 3/50MIN Diagnoses Chronic hyponatremia E87.1 COVID-19 U07.1 Hypertension I10
[2023-03-11] MEDS: ENOXAPARIN INJ 40 MG/0.4 ML SYR SQ SCH (15:22)
--- NOTE | 2023-03-11 15:41 | Hospitalist Progress Note ---
Date of Service March 11, 2023 Assessment & Plan (1) COVID-19: Plan: Pt with covid sx of sore throat and fatigue 9 days prior to admission,Testing positive for COVID with marked GI symptoms. At this point in time she is not short of breath or hypoxic nor does she have significant chest x-ray changes subsequently does not qualify for treatment with remdesivir (as >7 from sx onset) or steroid Treat covid with supportive care at this time nause and vomiting with epigastric pain , iv pepcid. CT abdomen showed no acute process although pancreatic ductal dilatation was seen. This could be reassessed with a follow-up MRI in 6 months to ensure continued stability. incidentally family covid + after thanksgiving pt negative with home test (2) Acute hyponatremia: Plan: Acute on chronic hyponatremia. Patient has received a few doses of 100 mL of 3% normal saline with appropriate response Sodium has improved to 129. Nephrology on board Likely hypovolemic in the setting of poor oral intake and nausea and vomiting. (3) Chronic kidney disease, stage III (moderate): Plan: Patient is chronic kidney disease stage III this is currently stable at this time. Chronic stable hypertension typically treated lisinopril, lisinopril is on hold at this time. Blood pressures acceptable (4) PMR (polymyalgia rheumatica): Plan: pt is no longer taking prednisone daily takes hydrocodone for pain, will be held with current nasuea Plan Lovenox for DVT prevention pt is a full code Admission and Anticipated Discharge Date Admission Date: March 09, 2023 Subjective Patient says that today she is less nauseous. She was able to tolerate her meals yesterday although she has been eating less overall. She denied any shortness of breath or cough. She is not hypoxic. She has had a few episodes of diarrhea which is also improving. No abdominal pain. Review of Systems Review of Systems: All systems reviewed & are unremarkable except as noted in Subjective Physical Exam Physical Exam: General: Awake, conversant Heart: S1, S2/regular rate and rhythm, no murmur rubs or gallops Lungs: Clear to auscultation bilaterally. Normal effort Abdomen: Soft/nontender/nondistended. No hepatosplenomegaly Extremities: No clubbing/cyanosis. No edema Behavior: Appropriate, cooperative Results & Data Results & Data Vital Signs (Past 12 Hours) Vital Signs Temp Pulse Pulse Pulse Resp BP BP 03/11/23 15:16 79 03/11/23 13:42 36.4 C L 76 17 152/85 H 03/11/23 10:13 93 H 18 03/11/23 08:00 03/11/23 07:26 79 15 163/93 H 03/11/23 07:13 58 L 03/11/23 07:00 57 L 16 163/93 H 03/11/23 05:27 68 20 144/78 H 03/11/23 04:20 60 Pulse Ox Pulse Ox O2 Del Method O2 Del Method 03/11/23 15:16 03/11/23 13:42 100 Room Air 03/11/23 10:13 98 Room Air 03/11/23 08:00 97 Room Air 03/11/23 07:26 98 Room Air 03/11/23 07:13 03/11/23 07:00 97 Room Air 03/11/23 05:27 98 Room Air 03/11/23 04:20 Laboratory Results Abnormal lab results 03/10/23 03/10/23 03/11/23 Range/Units 17:09 22:25 02:00 Sodium 122 L 125 L 127 L (136-145) mmol/L Chloride 92 L (98-107) mmol/L Glucose 111 H (70-99(Fasting)) mg/dl Calcium (8.6-10.3) mg/dl Magnesium (1.7-2.4) mg/dl Total Bilirubin (0.2-1.0) mg/dl Total Protein (6.0-8.3) gm/dl Globulin (2.5-4.0) gm/dl 03/11/23 03/11/23 Range/Units 06:18 14:32 Sodium 129 L 129 L (136-145) mmol/L Chloride (98-107) mmol/L Glucose (70-99(Fasting)) mg/dl Calcium 8.5 L (8.6-10.3) mg/dl Magnesium 1.6 L (1.7-2.4) mg/dl Total Bilirubin 1.1 H (0.2-1.0) mg/dl Total Protein 5.5 L (6.0-8.3) gm/dl Globulin 2.1 L (2.5-4.0) gm/dl PG Care Time/CCT Total # of Minutes Spent Total Time Spent with Patient: Total time spent is greater than 50% in coordination of care (as documented) at patient's floor/unit and/or counseling patient: Coding Level of Care Code 28022 SUB INP/OBS CARE 2/35MIN Diagnoses COVID-19 U07.1 Acute hyponatremia E87.1 Chronic kidney disease, stage III (moderate) N18.3 PMR (polymyalgia rheumatica) M35.3
[2023-03-11] MEDS ORDERED: STAT IV/IM STA (16:50)
[2023-03-11] MEDS ORDERED: SODIUM CHLORIDE 3 % 150 ML IV ONE (16:50)
[2023-03-11] MEDS ORDERED: guaiFENesin SUGAR FREE 200 MG/10 ML UDC PO PRN (18:52)
[2023-03-11] MEDS ORDERED: SODIUM CHLORIDE 1 GM TABLET PO ONE (18:52)
[2023-03-11] MEDS: ATORVASTATIN 10 MG TAB PO SCH (20:33)
[2023-03-12] MEDS: MoRPHine SULFATE 2 MG/ML CARP IV PRN (01:26)
[2023-03-12 05:27] LABS: Albumin Globulin Ratio 1.7 (0.9-2); Albumin Level 3.4 gm/dl (3.4-5.0); BUN Creatinine Ratio 12.8 (10-20); Bilirubin,Total 0.7 mg/dl (0.2-1.0); Calcium 8.7 mg/dl (8.6-10.3); Est GFR (African American) 65.9 ml/min; Est GFR (Non-African American) 56.9 ml/min; Magnesium 1.9 mg/dl (1.7-2.4); Potassium 3.8 mmol/L (3.5-5.1); Total Protein 5.4 gm/dl (6.0-8.3)
[2023-03-12] MEDS: FAMOTIDINE 20 MG in SYRINGE 3 ML IV SCH (08:48)
[2023-03-12] MEDS ORDERED: HYDROCODONE/ACETAMOPHEN 5/325MG TAB PO PRN (08:49)
--- NOTE | 2023-03-12 10:37 | Nephrology Progress Note ---
Date of Service March 12, 2023 Assessment & Plan (1) Chronic hyponatremia: Plan: Chronic moderate to severe hyponatremia. Now euvolemic. 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 Symptoms improved. Sodium improved with therapy. No additional NaCl replacement required at this time. Close monitoring will be provided. If Fela is discharged, please check a metabolic profile early next week. Arrange follow up with me in the nephrology clinic within 2 weeks of discharge. (2) COVID-19: Plan: Symptomatically improving. (3) Hypertension: Plan: Lisinopril held. BP acceptable. Restart PRN. Close monitoring at home encouraged. Admission and Anticipated Discharge Date Admission Date: March 09, 2023 Subjective No acute events overnight. Some loose bowel movements yesterday but this has improved. Appetite is fair. Nausea notably improved. No fevers. Feels cold but without shaking chills. Overall, improvement noted. Breathing comfortably. Starting to feel ready for discharge. Review of Systems Review of Systems: All systems reviewed & are unremarkable except as noted in HPI & below Physical Exam Constitutional: well developed; no acute distress Eyes: no scleral abnormality and no corneal abnormality ENMT: Mouth: no oral mucosal abnormality and oral mucous membranes not dry Neck: normal visual inspection and trachea midline Respiratory: normal respiratory effort Auscultation: lungs clear to auscultation bilaterally Cardiovascular: Rate/Rhythm: regular rate Heart Sounds: normal S1 and normal S2 Extremities: no edema Musculoskeletal: Extremities: no cyanosis and no clubbing Skin: normal turgor; no lesions Neurologic: Motor/Sensory: no tremor and no asterixis Psychiatric: Orientation: alert and oriented x 3 Results & Data Vital Signs (Past 12 Hours) Vital Signs Temp Pulse Pulse Resp BP Pulse Ox O2 Del Method 03/12/23 07:53 36.5 C 63 16 123/76 96 Room Air 03/12/23 07:21 60 03/12/23 03:47 Room Air 03/12/23 03:36 36.9 C 79 18 126/87 99 Room Air 03/11/23 23:06 37.1 C 89 18 128/99 97 Room Air Laboratory Results Laboratory Results - last 24 hr 03/11/23 03/11/23 03/12/23 14:32 22:16 04:43 Sodium 129 L 132 L 132 L Potassium 3.8 Chloride 102 Carbon Dioxide 24 Anion Gap 6 BUN 12 Creatinine 0.94 Est Cr Clr Drug Dosing 50.0 Est GFR ( Amer) 65.9 Est GFR (Non-Af Amer) 56.9 BUN/Creatinine Ratio 12.8 Glucose 105 H Calcium 8.7 Magnesium 1.9 Total Bilirubin 0.7 AST 20 ALT 20 Alkaline Phosphatase 47 Total Protein 5.4 L Albumin 3.4 Globulin 2.0 L Albumin/Globulin Ratio 1.7 PG Care Time/CCT Total # of Minutes Spent Total Time Spent with Patient: Total time spent is greater than 50% in coordination of care (as documented) at patient's floor/unit and/or counseling patient: Coding Level of Care Code 57261 SUB INP/OBS CARE 3/50MIN Diagnoses Chronic hyponatremia E87.1 COVID-19 U07.1 Hypertension I10
--- NOTE | 2023-03-12 13:06 | Discharge Summary ---
Date of Service March 12, 2023 Admission HPI Per Admitting Provider 82-year-old female presents to the ER with nausea vomiting and diagnosis of COVID infection. Chronically takes steroids for polymyalgia rheumatica. Has a sodium of 123 and feels markedly fatigued. Has had a low-grade fever at home. Has not been able to keep things down for 2 days. This has been accompanied with diarrhea. Patient has a history of previous colon resection for diverticular abscess. Also incidentally noted IPMN on previous images Admission Exam Per Admitting Provider The patient appeared well nourished and normally developed. Vital signs as documented. Head exam is normocephalic atraumatic Neck is without JVD, thyromegaly, or carotid bruits. Lungs are clear to auscultation, no focal loss of breath sounds Cardiac exam, Rhythm is regular.. No murmurs, rubs or gallops. Abdominal exam reveals normal bowel sounds, soft epigastric tenderness and ruq tenderness no rebound no guarding Extremities are nonedematous and both pedal pulses are present Neurologic exam is alert and oriented, no focal loss of strength or sensation Skin is without bruises or rashes Psychologically is without concerns for anxiety or depression.. Principal Diagnosis Covid 19 infection Nausea, Vomiting related to Covid Hyponatremia likely due to dehydration Discharge Exam General: Awake, conversant Heart: S1, S2/regular rate and rhythm, no murmur rubs or gallops Lungs: Clear to auscultation bilaterally. Normal effort Abdomen: Soft/nontender/nondistended. No hepatosplenomegaly Extremities: No clubbing/cyanosis. No edema Behavior: Appropriate, cooperative Discharge Data Allergies Allergy/AdvReac Type Severity Reaction Status Date / Time metoclopramide Allergy Severe seizure-like Verified 03/09/23 11:09 activity prochlorperazine Allergy Severe seizure-like Verified 03/09/23 11:09 activity sulfamethoxazole Allergy Severe Nausea Verified 03/09/23 11:09 [From Bactrim] trimethoprim [From Bactrim] Allergy Severe Nausea Verified 03/09/23 11:09 ciprofloxacin Allergy Intermediate rash Verified 03/09/23 11:09 indomethacin Allergy Intermediate nausea Verified 03/09/23 11:09 metronidazole Allergy Intermediate rash Verified 03/09/23 11:09 olmesartan Allergy Mild Itching Verified 03/09/23 11:09 Consultations 03/09/23 10:23 ED Decision to Admit Stat 03/10/23 13:25 Consult Nephrology Routine Ordered Studies 03/09/23 10:33 CT Abd and Pelvis [CT abd pelvis oral con only] Stat Hospital Course (1) COVID-19: Pt with covid sx of sore throat and fatigue 9 days prior to admission,Testing positive for COVID with marked GI symptoms. She was not short of breath or hypoxic nor does she have significant chest x-ray changes subsequently does not qualify for treatment with remdesivir (as >7 from sx onset) or steroid Treated covid with supportive care at this time nause and vomiting with epigastric pain , iv pepcid. Please note that CT abdomen showed no acute process although pancreatic ductal dilatation was seen. This could be reassessed with a follow-up MRI in 6 months to ensure continued stability. (2) Acute hyponatremia: Acute on chronic hyponatremia. Patient has received a few doses of 100 mL of 3% normal saline with appropriate response Sodium has improved to 132 today Nephrology on board Likely hypovolemic in the setting of poor oral intake and nausea and vomiting. Plan to discharge the patient today Check BMP outpatient in 1 week Follow-up with parts casting machine operator in 1 week (3) Chronic kidney disease, stage III (moderate): Patient is chronic kidney disease stage III this is currently stable at this time. Chronic stable hypertension typically treated lisinopril, lisinopril is on hold at this time. Blood pressures acceptable Lisinopril resumed upon discharge (4) PMR (polymyalgia rheumatica): pt is no longer taking prednisone daily Resumed hydrocodone Plan Lovenox for DVT prevention pt is a full code Total Time Total Time Spent Total Time Spent (In Minutes): 35 Discharge Plan Discharge Items Patient Disposition: Home - Self-Care Reason For Visit: COVID,HYPONATREMIA,N/V Discharge Diagnosis: Covid 19 infection Nausea, Vomiting related to Covid Hyponatremia likely due to dehydration Condition on Discharge: Fair Activity: Resume your previous activity Non-emergency contact: Primary Care Provider Call non-emergency contact if: you have any medication questions Follow-up/Referrals: Marcos Sarabia MD [Primary Care Provider] - 03/23/23 11:30 am Sincere Silva, [Physician] - (DR SILVA'S OFFICE WILL CALL YOU WITH AN APPOINTMENT. IF YOU DO NOT HEAR BACK FROM THEM WITHIN A FEW DAYS, PLEASE CONTACT THEIR OFFICE.) Diet: Heart Healthy Ambulatory Orders: Basic Metabolic Panel (Routine) Timeframe: 1 Week Location: Determined by Patient Ordered By: Rachel Edwards Attending Provider Instructions: Advised to follow-up with PCP in 1 week Advised to follow-up with Dr. Silva (parts casting machine operator in 1 week) Advised to get blood done in 1 week prior to appointment with parts casting machine operator Pending Studies at Discharge: No Stand-Alone Forms: [facility] Medications and DC Order Prescriptions: Continued atorvastatin 10 mg tablet 10 mg PO HS Qty: 90 3RF hydrocodone-acetaminophen 5-325 mg tablet 1 tab PO DAILY PRN (Reason: pain) Qty: 30 0RF methenamine hippurate 1 gram tablet 1 g PO HS Qty: 90 3RF Rx Instructions: Take one tablet at bedtime. cranberry 400 mg capsule 800 mg PO HS Rx Instructions: administer with a meal acetaminophen [Tylenol Extra Strength] 500 mg tablet 1,000 mg PO TID PRN (Reason: pain) Rx Instructions: Take 3 times per day to lessen pain. cholecalciferol (vitamin D3) [Vitamin D3] 2,000 unit Tablet 2,000 unit PO HS coenzyme Q10 [Co Q-10] 100 mg Capsule 100 mg PO HS lisinopril 20 mg tablet 20 mg PO HS Discharge Orders: Discharge Order (Routine); Ordered 03/12/23 Ordered By: Rachel Brooks Admission Data Admit Date/Time: 03/09/23 10:33 Attending Provider: Rachel Brooks Admit Provider: Oral Short Primary Care Provider: Marcos Sarabia Other Providers: Oral Short; Sincere Silva Other Interventions: Discharge Summary Assessment (RN) Last Done: 03/12/23 12:40 Coding Level of Care Code 95473 INP/OBS DISCH >30 MIN Diagnoses COVID-19 U07.1 Acute hyponatremia E87.1 Chronic kidney disease, stage III (moderate) N18.3 PMR (polymyalgia rheumatica) M35.3
--- NOTE | 2023-03-17 12:03 | Coding Query ---
To promote full compliance with coding requirements relating to patient care, provider participation is requested in all cases of field handyman uncertainty. Please assist us with the question(s) below: Coding Question(s): The diagnosis below was documented in the H&P, then subsequently fell off all further documentation. Please indicate if it is still a possible diagnosis or ruled out. Physician's Response(s): METABOLIC ENCEPHALOPATHY (documented on the H&P) ( ) Diagnosed ( x ) Ruled out ( ) Other (please specify) MTDD
== END 2023-03-12 13:15 | disposition home or self-care (01) | DRG 178 ==
LOC: ED 07:53 → SUATTDRO 10:33 → EDINP 10:33 → 2N 03-11 13:00 → 2W 03-11 21:59

== ENCOUNTER 2023-05-04 07:03 | Observation (INO) ==
--- NOTE | 2023-04-28 08:22 | Anesthesiology Consultation ---
Date of Service April 28, 2023 Assessment & Plan (1) Encounter for pre-operative examination: Plan - Case discussed in detail with Dr. Garrido who advised patient will need PCP clearance given recent hospitalization. Awaiting PCP response to workload note. Surgeon's office made aware. - discharge summary 03/12/23 [facility]: "...nausea vomiting and diagnosis of COVID infection. Chronically takes steroids for polymyalgia rheumatica. Has a sodium of 123 and feels markedly fatigued. Has had a low-grade fever at home. Has not been able to keep things down for 2 days. This has been accompanied with diarrhea. Patient has a history of previous colon resection for diverticular abscess...COVID-19: Pt with covid sx of sore throat and fatigue 9 days prior to admission,Testing positive for COVID with marked GI symptoms. She was not short of breath or hypoxic nor does she have significant chest x-ray changes subsequently does not qualify for treatment with remdesivir (as >7 from sx onset) or steroid...nause and vomiting with epigastric pain , iv pepcid. Please note that CT abdomen showed no acute process although pancreatic ductal dilatation was seen. This could be reassessed with a follow-up MRI in 6 months to ensure continued stability...Acute on chronic hyponatremia. Patient has received a few doses of 100 mL of 3% normal saline with appropriate response. Sodium has improved to 132 today...Likely hypovolemic in the setting of poor oral intake and nausea and vomiting..." - Outpatient joint assessment: Patient is currently scheduled for inpatient pathway. If re-evaluated and patient/surgeon requests outpatient pathway, patient is not recommended candidate for outpatient joint program from anesthesia standpoint. - Per tire stripper on 04/27/23: No known infectious disease contacts, current infectious disease symptoms in past 10 days or COVID positive test result in the past 30 days. Chart Review Chart Review: Pending: Refer to Additional Notes / Consult section and Patient NOT seen in Pre Admission Testing History Surgery Operation Date: 05/04/23 12:30 Proposed Procedures p Left Total Hip Arthroplasty - Mitchell Trimble MD Height/Weight Height: 5 ft 3 in Weight: 85.729 kg Allergies Allergy/AdvReac Type Severity Reaction Status Date / Time metoclopramide Allergy Severe seizure-like Verified 04/27/23 10:51 activity prochlorperazine Allergy Severe seizure-like Verified 04/27/23 10:51 activity sulfamethoxazole Allergy Severe Nausea Verified 04/27/23 10:51 [From Bactrim] trimethoprim [From Bactrim] Allergy Severe Nausea Verified 04/27/23 10:51 ciprofloxacin Allergy Intermediate rash Verified 04/27/23 10:51 indomethacin Allergy Intermediate nausea Verified 04/27/23 10:51 metronidazole Allergy Intermediate rash Verified 04/27/23 10:51 olmesartan Allergy Mild Itching Verified 04/27/23 10:51 Medications Home Medications Medication Instructions Recorded Confirmed Last Taken cholecalciferol (vitamin D3) 50 2,000 unit PO HS 05/27/18 04/27/23 03/08/23 mcg (2,000 unit) tablet (Vitamin D3) cranberry 400 mg capsule 800 mg PO HS 10/03/21 04/27/23 03/08/23 coenzyme Q10 100 mg capsule (Co 100 mg PO HS 08/08/22 04/27/23 03/08/23 Q-10) acetaminophen 500 mg tablet 1,000 mg PO TID PRN pain 10/02/22 04/27/23 Unknown (Tylenol Extra Strength) methenamine hippurate 1 gram tablet 1 g PO HS #90 tabs 02/18/23 04/27/23 03/08/23 lisinopril 20 mg tablet 20 mg PO HS 03/09/23 04/27/23 03/08/23 atorvastatin 10 mg tablet 10 mg PO HS #90 tabs 03/23/23 04/27/23 Unknown famotidine 20 mg tablet (Pepcid) 20 mg PO DAILY #30 tabs 03/23/23 04/27/23 Unknown ondansetron HCl 4 mg tablet 4 mg PO Q8H PRN nausea and 03/23/23 04/27/23 Unknown vomiting #30 tabs hydrocodone 5 mg-acetaminophen 325 1 tab PO DAILY PRN pain #30 tabs 03/30/23 04/27/23 Unknown mg tablet Past Medical History Medical History (Updated 04/28/23 @ 08:20 by Paulina Donaldson PA-C) Chronic hyponatremia Colonic polyp hx Dyslipidemia Fatty liver Frequent urinary tract infections Gastroesophageal reflux disease H/O polymyalgia rheumatica Hip bursitis, left History of COVID-19 03/09/2023- hospitalized @ [facility] due to electrolyte imbalance from covid symptoms 08/2021, tested at [facility], not hosp; having UTI symptoms, "felt sick went to the ER,">resolved History of diverticulitis last flare-06/2022 Hyperlipemia Hypertension controlled, stable per pt Kidney stone hx Obesity Pancreatic cyst monitoring Peripheral artery disease Solitary pulmonary nodule Past Family History Family History Sister Rheumatoid arthritis Breast cancer Other Diabetes Family history of kidney disease Hypertension Denies family history of Ovarian cancer Prostate cancer Myocardial infarction Colorectal cancer Past Surgical History Surgical History History of appendectomy History of bilateral oophorectomies History of cataract surgery R/L History of cholecystectomy History of colon resection 05/2013 2 diverticulitis History of colonoscopy History of hysterectomy History of knee replacement Hx of basal cell carcinoma excision R eyelid Status post right knee replacement R TKA L4-L5 1 attempt + PNB. Status post total left knee replacement 08/20/2022 Social History Smoking Status: Never smoker Do You Dip or Chew Tobacco: No Hx Alcohol Use: Yes alcohol intake frequency: holidays/special occasions only Hx Substance Use: No substance use type: does not use Lab Results Anesthesia Preop Results Results Anesthesia Widget: WBC 10.57 K/ul (4.8-10.8) 04/16/23 Hgb 12.3 g/dl (12.0-16.0) 04/16/23 Hct 37.6 % (37.0-47.0) 04/16/23 Plt 220 K/uL (130-400) 04/16/23 Na 136 mmol/L (136-145) 04/16/23 K 4.3 mmol/L (3.5-5.1) 04/16/23 Cl 103 mmol/L (98-107) 04/16/23 CO2 26 mmol/L (21-32) 04/16/23 BUN 21 mg/dl (6-23) 04/16/23 Creat 1.12 mg/dl (0.6-1.2) 04/16/23 Glucose Level 148 mg/dl (70-99(Fasting)) H 04/16/23 PT 11.1 Seconds (9.0-12.0) 04/16/23 PTT 27 Seconds (21-31) 04/16/23 INR 1.0 (0.9-1.1) 04/16/23 Urine Color Dark Yellow 03/23/23 Urine Appearance Clear (Clear) 03/23/23 Urine pH 7.0 (4.5-7.5) 03/23/23 Urine Specific [place] 1.018 (1.000-1.030) 03/23/23 Urine Protein Negative (Negative) 03/23/23 Urine Glucose (UA) Negative (Negative) 03/23/23 Urine Ketones Negative (Negative) 03/23/23 Urine Blood Negative (Negative) 03/23/23 Urine Nitrite Negative (Negative) 03/23/23 Urine Bilirubin Negative (Negative) 03/23/23 Urine Urobilinogen Negative (Negative) 03/23/23 Urine Leukocyte Esterase Negative (Negative) 03/23/23 Urine WBC (Auto) 1-5 /hpf (0-5) 03/09/23 Urine RBC (Auto) 0-4 /hpf (0-4) 03/09/23 Urine Hyaline Casts (Auto) 1-5 /lpf (0-5) 03/09/23 Urine Epithelial Cells (Auto) >30 /lpf (0-5) H 03/09/23 Urine Bacteria (Auto) Negative (Negative) 03/09/23 SARS-CoV-2, RNA, NAAT POSITIVE (NEGATIVE) A* 03/09/23 Blood Type A Positive 04/16/23 Antibody Screen NEGATIVE 04/16/23 Testing Electrocardiogram Date: 03/09/23 Sinus rhythm with 1st degree AV block, rate 79 bpm Left anterior fascicular block Moderate voltage criteria for LVH, may be normal variant Possible old lateral infarct cited on or before 12/11/20 Chest X-Ray Date: 03/09/23 *1view* No active disease in the chest. Echocardiogram Date: 12/28/20 EF 65-70% No regional wall motion abnormalities Moderate cLVH Mild mitral regurgitation Cervical Spine Date: 12/17/22 1. No cervical spine fracture. 2. Severe multilevel facet arthrosis and moderate degenerative disc disease within the cervical spine. Other Testing Abdomen pelvis CT 03/09/23 1. No acute process within the abdomen or pelvis on unenhanced exam. No bowel obstruction status post sigmoid resection. 2. Colonic diverticulosis. No evidence for acute diverticulitis. 3. Multiple hepatic cysts. 4. Pancreatic ductal dilatation with several pancreatic calcifications, similar in appearance to CT of March 15, 2022 and MRI of May 07, 2022. This could be reassessed with a follow-up MRI in 6 months to ensure continued stability. Carotid doppler 12/28/20 < 50% stenosis in ICAs bilat
[~2023-05-04 07:03] MED LIST changes: -ACETAMINOPHEN 500 MG TAB PO SCH; -BUPIVACAINE LIPOSOME/PF 266 MG, BUPIVACAINE/EPINEPHRINE 50 ML, SODIUM CHLORIDE 0.9% PF ... INFIL SCH; -CeleBREX 200 MG CAP PO SCH; -EPINEPHrine INJ 1 MG/ML AMP ONE; -FAMOTIDINE 20 MG TAB PO SCH; -LR 500ML BOLUS, THEN 15ML/HR IV SCH; -LR 60ML/HR IV SCH; +METOCLOPRAMIDE HCL 10 MG TABLET PO SCH; -ROPIVACAINE 0.5% 5 MG/ML 30 ML VIAL ONE; -TRANEXAMIC ACID 1,000 MG x 1 **For Topical Use TOP SCH; -ceFAZolin 2000MG 2,000 MG/15 ML SYR IV SCH; -dexAMETHasone**PF** 10 MG/ML VIAL IV SCH
[2023-05-04] MEDS ORDERED: MIDAZOLAM HCL 1 MG/ML 2ML VIAL ONE (07:52)
[2023-05-04] MEDS ORDERED: ATROPINE SULFATE 0.1 MG/ML 10ML SYR IV PRN (08:02)
[2023-05-04] MEDS ORDERED: HYDROmorphone INJ 1 MG/ML SYRINGE IV PRN (08:02)
[2023-05-04] MEDS ORDERED: ePHEDrine sulfate 50 MG/ML AMP IV PRN (08:02)
[2023-05-04] MEDS: LR 500ML BOLUS, THEN 15ML/HR IV SCH (08:08)
[2023-05-04] MEDS: FAMOTIDINE 20 MG TAB PO SCH (08:20)
[2023-05-04] MEDS: ACETAMINOPHEN 500 MG TAB PO SCH ×2 (08:21→14:08)
[2023-05-04] MEDS: dexAMETHasone**PF** 10 MG/ML VIAL IV SCH (08:21)
[2023-05-04] MEDS: CeleBREX 200 MG CAP PO SCH (08:21)
--- NOTE | 2023-05-04 08:21 | History & Physical Bridge Note ---
Date of Service May 04, 2023 History & Physical Bridge Note I have examined the patient, reviewed the History & Physical and in the interval since the performance of the History & Physical I have noted the following changes of clinical significance: no changes noted
[2023-05-04] MEDS: ONDANSETRON INJ 2 MG/ML 2 ML VIAL IV STA (08:25)
[2023-05-04] MEDS: TRANEXAMIC ACID 1,000 MG **IV Pre-op IV SCH (08:35)
[2023-05-04] MEDS: ceFAZolin 2000MG 2,000 MG/15 ML SYR IV SCH ×2 (08:45→16:58)
[2023-05-04] MEDS ORDERED: fentaNYL citrate PF 100 MCG/2 ML VIAL ONE (09:14)
[2023-05-04] MEDS ORDERED: PROPOFOL IV EMULSION 10 MG/ML 100 ML VIAL IV ONE (09:29)
[2023-05-04] MEDS ORDERED: ESMOLOL HCL INJ 10 MG/ML 10ML VIAL IV ONE (09:33)
[2023-05-04] MEDS ORDERED: METOPROLOL TARTRATE 1 MG/ML VIAL IV ONE (09:38)
[2023-05-04] MEDS: EPINEPHrine INJ 1 MG/ML AMP ONE (09:38)
[2023-05-04] MEDS: BUPIVACAINE 0.5 % 5 MG/1 ML MPF 30ML VIAL ONE (10:06)
--- NOTE | 2023-05-04 10:33 | Operative Report ---
PG Post Operative Report Pre & Post Diagnosis Operation Date: 05/04/23 08:50 Pre-Op Diagnosis: Left Hip Degenerative Joint Disease Post-Op Diagnosis: Left Hip Degenerative Joint Disease I identified the patient and participated in the time-out.: Yes Procedure Operation Date: 05/04/23 08:50 Actual Procedures p Left Total Hip Arthroplasty(Left) - Mitchell Trimble MD Surgeon Mitchell Trimble MD Wax Machine Operator Marvin Herrera PA-C Estimated Blood Loss 100 Findings Consistent with Post-Op Diagnosis Operative findings reveal advanced left hip DJD. She did have grade 4 [id number] disease of the femoral head and acetabulum. Not much in the way of osteophyte formation. Previous small joint effusion. Specimens Left femoral head sent for pathology. Anesthesia Type Spinal MAC Complications none Disposition Accompanied Patient To Recovery: No Indications Patient is an 83-year-old female well-known to me from multiple orthopedic visits and treatments over the years. She has had both knees replaced the left one done about 8 or 9 months ago. Over the past 6 months she developed increasing left hip pain discomfort is become more disabling. She failed conservative treatment. X-rays failed fairly concentric hip arthritis. She like proceed with total hip arthroplasty. Description of Procedure Operative implants consist of: 1 Biomet G7 size 50 acetabular shell. 2. [place] manager of business operations. 3. Highly cross-linked polyethylene liner with a 50 mm outer diameter and 36 mm inner diameter. 4. 6.5 cancellous acetabular screws 1 at 35 mm in length and 1 to 25 mm length. 5. DePuy Corail size 10 short neck 125 degree angle femoral stem. 6. +5/36 mm ceramic articular ball. The patient was taken the op room, identified, placed on the operating table in the supine position but all contact areas were appropriately padded. IV antibiotics tried by anesthesia team. A spinal anesthetic and been implemented holding area. A Sevilla catheter was placed in sterile fashion. The patient then placed in the right lateral decubitus position. An axillary roll was placed. Distal Birkett position was used for positioning. The left hip and leg were then prepped and draped in usual sterile fashion. A posterolateral approach to the left hip was then performed to a curvilinear incision centered over the greater trochanter. Sharp dissection through subcutaneous dismantle of the IT band gluteal fascia. The IT band gluteal fascia incised longitudinally in line with the skin incision. The greater trochanter bursa was excised. The piriformis and external rotators along with the posterior hip joint capsule were then released from the posterior aspect of the hip as a single layer of care. Great care was taken throughout the procedure protect the sciatic nerve at all times. Hip was then internally rotated and dislocated. Femoral neck osteotomy cut was made with a Final Cut about 10 mm above the lesser trochanter. Femoral head was removed and sent for pathology. The femur was retracted anteriorly. Attention drawn the acetabulum. The acetabular labrum was excised. The pulmonary fat was excised. Sequential reaming the acetabular was then performed again with size 43 and progressing up to 49. I reamed a little bit with a 50 reamer and then placed a 50 mm G7 acetabular shell in about 40 degrees lateral opening and 20 degrees of anteversion. It was fixed with two 6.5 cancellous acetabular screws. Trial liner was placed. Attention drawn the femur. The proximal femur was entered with a cookie cutter followed by canal finder. I then broached beginning size 8 and progressing up to a 10 to get excellent fitted to 10. I trialed the hip and the standard stem just seem to be a little bit too tight with too much soft tissue tension and a little bit tight in extension and increased offset. Therefore we elected to use a short neck. This provided more anatomically equal leg lengths and appropriate soft tissue tension. With a +5 articular ball, the hip was fully stable full extension and external rotation flexion to 90 degrees internal Tatian over [address] these implants. All trial implants were removed. [place] manager of business operations was placed. Highly cross- linked polyethylene liner was placed. A size 10 KLA short neck 125 degree angle stem was then impacted in position. +5/36 mm ceramic articular ball was placed. Hip was located and once again found to be stable. Attention drawn toward closing. The wound was irrigated cosigns pulsatile lavage solution. I did inject locally with 60 cc of half percent Marcaine with epinephrine. Patient did receive 1 g tranexamic acid. The posterior hip joint capsule along with external rotators were then repaired through drills and a posterior trochanter with #2 Tycron sutu re. The IT band gluteal fascia then closed with #1 PDS suture in a running fashion for subcutaneous tissue then closed in 2 layers with a deep layer #2 Vicryl suture and subcutaneous tissues with 2-0 Dexon suture in a buried interrupted fashion the skin was closed skin calista. Leg was then cleaned and dried. A Prevena VAC dressing was applied due to the thick soft tissue envelope. The patient was then transferred to the recovery room in stable condition. Patient tolerated procedure well and there were no complications. Marvin Herrera, my physician workforce development assistant, was present for the entire procedure. His assistance was essential and required for appropriate patient positioning, prepping and draping, surgical exposure, performing the technical details of the operation, placement the implants, closure of the wound, and placement of the sterile bandage. I attest to the content of the Intraoperative Record and any orders documented therein. Any exceptions are noted below.
--- NOTE | 2023-05-04 11:01 | XRay Report ---
XR hip 1V LT w pelvis CLINICAL HISTORY: Postoperative evaluation. COMPARISON: Left hip radiographs February 19, 2023. FINDINGS: Alignment of the total left hip arthroplasty is anatomic. There is no periprosthetic fract ure or unexpected radiopaque foreign body. There are skin calista and acetabular screws. Moderate to severe right hip joint space narrowing with osteophytosis is again noted. IMPRESSION: Expected findings following total left hip arthroplasty. ACT 112: Negative or not required by law. Electronically signed by: Primitivo Eubanks M.D. 05/04/2023 11:00 AM
--- NOTE | 2023-05-04 11:14 | Anesthesiology Progress Note ---
Date of Service May 04, 2023 Anesthesia Post Procedure Vital Signs Vital Signs: Temp Pulse Pulse Resp BP BP Pulse Ox 05/04/23 11:05 75 11 L 128/67 97 05/04/23 10:55 76 12 140/60 99 05/04/23 10:45 70 12 167/96 H 99 05/04/23 10:35 76 12 138/65 98 05/04/23 10:25 79 14 139/76 96 05/04/23 10:15 36.1 C L 80 23 153/75 H 95 05/04/23 07:50 36.7 C 100 H 18 167/86 H 98 O2 Del Method O2 Flow Rate 05/04/23 11:05 Nasal Cannula 2 05/04/23 10:55 Nasal Cannula 2 05/04/23 10:45 Nasal Cannula 2 05/04/23 10:35 Room Air 05/04/23 10:25 Room Air 05/04/23 10:15 Room Air 05/04/23 07:50 Room Air Transfer of Care Handoff Completed per policy Notes Mental Status: alert / awake / arousable and participated in evaluation Nausea / Vomiting: adequately controlled Pain: adequately controlled Airway Patency, RR, SpO2: stable & adequate BP & HR: stable & adequate Hydration State: stable & adequate Neuraxial Anesthesia: was administered and sensory block is resolving Anesthetic Complications: no major complications apparent and Pt Satisfied with anesthetic care
[2023-05-04] MEDS ORDERED: ALUMINUM/MAGNESIUM SUSP 30 ML UDC PO PRN (11:50)
[2023-05-04] MEDS: SODIUM CHLORIDE 0.9% 1,000 ML IV SCH (11:50)
[2023-05-04] MEDS ORDERED: NALOXONE HCL 0.4 MG/1 ML VIAL/CARP IV PRN (11:50)
[2023-05-04] MEDS ORDERED: ONDANSETRON INJ 2 MG/ML 2 ML VIAL IV PRN (11:50)
[2023-05-04] MEDS ORDERED: bisacodyL 10 MG SUPP PR PRN (11:50)
[2023-05-04] MEDS ORDERED: METOCLOPRAMIDE HCL INJ 5 MG/ML 2 ML VIAL IV PRN (11:50)
[2023-05-04] MEDS ORDERED: MAGNESIUM HYDROXIDE SUSP 30 ML UDC PO PRN (11:50)
[2023-05-04] MEDS: LR 60ML/HR IV SCH (12:18)
[2023-05-04] MEDS: KETOROLAC TROMETHAMINE 15 MG/ML VIAL IV SCH (12:26)
[2023-05-04] MEDS ORDERED: ACETAMINOPHEN 500 MG TAB PO SCH (14:00)
[2023-05-04] MEDS: ASCORBIC ACID 500 MG TAB PO SCH (16:58)
[2023-05-04] MEDS: TRANEXAMIC ACID / 0.7% NACL 1,000 MG/100 ML BAG IV SCH (16:58)
[2023-05-04] MEDS: oxyCODONE HCL IR 5 MG TAB (IMMEDIATE RELEASE) PO PRN (20:06)
[2023-05-04] MEDS: ASPIRIN 81 MG ECTAB PO SCH (20:07)
[2023-05-04] MEDS: ATORVASTATIN 10 MG TAB PO SCH (20:07)
[2023-05-04] MEDS: DOCUSATE SODIUM 100 MG CAP PO SCH (20:07)
[2023-05-04] MEDS: lisinopril 20 MG TAB PO SCH (20:07)
[2023-05-04] MEDS: CHOLECALCIFEROL 25 MCG (1000 UNITS) TAB PO SCH (20:08)
[2023-05-04] MEDS: SENNA 8.6 MG TAB PO SCH (20:12)
[2023-05-04] MEDS ORDERED: NON-FORMULARY MEDICATION (Coenzyme Q10 [Co Q-10] 100 mg Capsule) PO SCH (21:00)
[2023-05-04] MEDS ORDERED: SENNA 8.6 MG TAB PO SCH (21:00)
[2023-05-04] MEDS: HYDROmorphone INJ 0.5 MG/0.5 ML SYR IV PRN (22:01)
[2023-05-05 07:15] LABS: Basophils # (auto) 0.05 K/uL (0.00-0.20); Basophils % (auto) 0.2 %; Hematocrit (blood only) 32.8 % (37.0-47.0); Hemoglobin 10.9 g/dl (12.0-16.0); Immature Granulocytes % (auto) 0.9 %; Lymphocytes # (auto) 1.29 K/uL (1.20-3.40); Lymphocytes % (auto) 6.1 %; Mean Corpuscular Hgb Conc 33.2 g/dL (32.0-36.0); Mean Corpuscular Volume 93.2 fL (80.0-100.0); Monocytes # (auto) 1.25 K/uL (0.11-0.59); Monocytes % (auto) 5.9 %; Neutrophils # (auto) 18.31 K/uL (1.40-6.50); Neutrophils % (auto) 86.9 %; Platelet Count 262 K/uL (130-400); RDW Standard Deviation 43.8 fL (36.4-46.3); Red Blood Count 3.52 M/uL (4.20-5.40)
[2023-05-05 07:27] LABS: BUN Creatinine Ratio 20.7 (10-20); Calcium 9.2 mg/dl (8.6-10.3); Creatinine Clr Calc Pharmacy 38.8 ml/min; Est GFR (African American) 50.8 ml/min; Est GFR (Non-African American) 43.8 ml/min; Potassium 4.3 mmol/L (3.5-5.1)
[2023-05-05] MEDS: FAMOTIDINE 20 MG TAB PO SCH (08:30)
[2023-05-05] MEDS: MULTIVITAMIN TAB PO SCH (08:30)
[2023-05-05] MEDS: dexAMETHasone 10 MG in SYRINGE 0 ML IV SCH (08:30)
--- NOTE | 2023-05-05 17:20 | Surgery Progress Note ---
Date of Service May 05, 2023 Assessment & Plan (1) Status post left hip replacement: Plan: 83-year-old female postop day 1 from left hip replacement doing pretty well. She had 1 episode. Is significant pain but doing much better. Pain is controlled. It is located. She is neurologically intact. Plan: 1. DVT prophylaxis including thigh-high teds, SCDs, aspirin twice a day. 2. PT/OT. Weight-bear as tolerated. Left total hip protocol. 3. Pain control doing okay with current pain regimen. 4. Disposition plan to discharge to home today if she does okay in therapy with home health. Admission and Anticipated Discharge Date Admission Date: May 04, 2023 Subjective 83-year-old female postop day 1 from a left total hip replacement. She is doing pretty well. Had an episode of pretty bad pain last night got some Dilaudid doing much better. She been up and walking some. No chest pain or shortness of breath. Not feeling dizzy or lightheaded hoping to go home today. Physical Exam Physical Exam: Physical examination was a pleasant elderly female. Sitting up in her bedside chair. She looks comfortable. Examination of the left hip reveals the dressing be clean dry and intact peacekeeper Prevena VAC in place. Leg lengths are equal. Her thigh is soft and supple. She is neurologically intact. Hip is located. Respiratory: normal respiratory effort, lungs clear to auscultation Cardiovascular: RRR, no murmur, no edema Gastrointestinal (Abdomen): normal bowel sounds, soft, nontender, no hepatosplenomegaly Results & Data Vital Signs (Past 12 Hours) Vital Signs Temp Pulse Resp BP Pulse Ox O2 Del Method 05/05/23 08:07 36.6 C 81 16 132/78 97 Room Air Laboratory Results Hemoglobin is 10.9. Hematocrit is 32.8. Electrolytes are stable. PG Care Time/CCT Total # of Minutes Spent Total Time Spent with Patient: Total time spent is greater than 50% in coordination of care (as documented) at patient's floor/unit and/or counseling patient: Coding Level of Care Code 42351 Post Operative Follow-Up Diagnoses Status post left hip replacement Z96.642
--- NOTE | 2023-05-07 09:17 | Discharge Summary ---
Date of Service May 07, 2023 Discharge Data Procedures Performed Operation Date: 05/04/23 08:50 Actual Procedures p Left Total Hip Arthroplasty(Left) - Mitchell Trimble MD Hospital Course (1) Status post left hip replacement: This is a 83 year old patient admitted on 05/04/23 and underwent total hip arthroplasty. She tolerated the procedure well and there were no complications. Transferred to the PACU post op and later to the orthopedic floor for further care. She was given ancef for antibiotic prophylaxis. She was also given HERBERTH stockings, SCDs, and aspirin for DVT prophylaxis. Hemoglobin, hematocrit, and vital signs were monitored during her hospital stay and remained stable. Did not require any blood transfusions. There were no complications during her hospital stay. By post op day #1 the patient was tolerating a regular diet, pain was reasonably controlled with oral pain medicine, and she was participating in physical therapy. On post op day #1 the patient was discharged home and set up with home health care. She was given printed discharge instructions including prescriptions for extra strength tylenol, aspirin, ketorolac, zofran, oxycodone, and senokot. Continue hip precautions. Continue physical therapy, weight bearing as tolerated. Continue HERBERTH stockings. Follow up approximately 2 weeks post op or sooner if there are problems or concerns. Coding Level of Care Code None Diagnoses Status post left hip replacement Z96.642
== END 2023-05-05 11:50 | disposition home health service (06) ==
LOC: ASU 07:03 → 3E 07:03